=== PATIENT | male | born 1950 | race Caucasian/White ===

== ENCOUNTER → 2016-09-21 | Outpatient (REF) | payer MEDICARE, OTHER ==
[~2016-09-21] MED LIST: /HYDR10TAB PO; /PANT40TA OR; CEPH2CAP PO; COLA100C2 OR; EUCELOT2 PO; FERR324T5 OR; FOLI1TAB OR; INSUDET SC; LASI80TA OR; LEVAMIR SQ; MAGN250T OR; METO25TA2 OR; MOM30SS PO; MULTIVIT PO; NEUR100C OR; NOVOLOG100 MG/ML SC; NYAM10003 EXT; SENO8.6T9 PO; TOPROL XL PO; TYLE325T5 PO; WARF10TA OR; WARF10TA15 PO
== END ==
LOC: M LAB REF 14:16
PROVIDERS: ATTEND Podiatrist
DX: L97.422 Non-pressure chronic ulcer of left heel and midfoot with fat layer exposed (principal)

== ENCOUNTER 2016-10-12 09:09 | Inpatient (IN) | payer OTHER ==
[~2016-10-12] VITALS: Ht 182.9 cm; Wt 155.0 kg
[2016-10-12] MEDS ORDERED: LOSA25TA8 PO (09:50)
[2016-10-12] MEDS ORDERED: FURO40TA2 PO ×2 (09:50→12:02)
[2016-10-12] MEDS ORDERED: WARF-20 PO (09:50)
[2016-10-12] MEDS ORDERED: TOUJ1.2I SC (09:50)
[2016-10-12] MEDS ORDERED: ALLO100T PO (09:50)
[2016-10-12] MEDS ORDERED: ZOSY1SOL5 IV ×2 (09:50)
[2016-10-12] MEDS ORDERED: ONDANSETRON 4MG/2ML VIAL (J2405) IV PRN (12:00)
[2016-10-12] MEDS ORDERED: NEUR300C PO (12:02)
[2016-10-12] MEDS ORDERED: DOCU100C PO (12:02)
[2016-10-12] MEDS ORDERED: METO-209 PO (12:02)
[2016-10-12] MEDS ORDERED: VITMTA PO (12:02)
[2016-10-12] MEDS ORDERED: METO-207 PO (12:02)
[2016-10-12] MEDS ORDERED: INSUHUMDS SC (12:04)
[2016-10-12] MEDS ORDERED: NOVOINJ3 SC (12:06)
[2016-10-12] MEDS ORDERED: CRES20TA PO (12:06)
[2016-10-12] MEDS ORDERED: ZOSY2INJ2 IV (12:09)
[2016-10-12 13:25] LABS: ALBUMIN 2.9 GM/DL (3.2-5.2); ALBUMIN/GLOBULIN RATIO 0.81 (1.00-1.93); BILIRUBIN,TOTAL 0.3 MG/DL (0.2-1.0); CALCIUM LEVEL 8.2 MG/DL (8.8-10.2); CREATININE FOR GFR 1.41 MG/DL (0.70-1.30); GLOMERULAR FILTRATION RATE 53.5 (>49); MAGNESIUM LEVEL 2.2 MG/DL (1.8-2.4); POTASSIUM SERUM 3.9 MEQ/L (3.5-5.1); THYROXINE (T4) 11.2 UG/DL (4.5-12.0); TOTAL PROTEIN 6.5 GM/DL (6.4-8.2)
[2016-10-12 13:29] LABS: PLATELET COUNT, AUTOMATED 245 k/mm3 (150-450)
[2016-10-12 13:30] LABS: MEAN CORPUSCULAR HEMOGLOBIN 30.3 pg (27.0-33.0); MEAN CORPUSCULAR HGB CONC 31.5 g/dl (32.0-36.5)
[2016-10-12 13:31] LABS: BASO % 1.2 % (0.0-1.0); EOS # 0.1 K/mm3 (0.0-0.50); EOS % 3.9 % (0.0-3.0); LARGE UNSTAINED CELL # 0.1 K/mm3 (0.0-0.4); LARGE UNSTAINED CELL % 4.3 % (0.0-4.0); LYMPH % 34.5 % (24.0-44.0); MONO # 0.2 K/mm3 (0.0-0.8); MONO % 6.6 % (0.0-5.0); NEUTROPHILS # 1.4 K/mm3 (1.8-7.7); NEUTROPHILS % 49.5 % (36.0-66.0); RED CELL DISTRIBUTION WIDTH 14.9 % (11.5-14.5)
[2016-10-12 13:56] LABS: INR 2.61
--- NOTE | 2016-10-12 14:01 | REP ---
CHEST X-RAY: Two views. HISTORY: Preop. Comparison chest x-ray January 07, 2008. FINDINGS: There is a right-sided PICC line with its tip in the expected location of the superior vena cava. The patient is status post aortic valve replacement. Heart is not felt to be enlarged. The lungs are well inflated and clear. Pleural angles are sharp. There are minimal degenerative changes in the thoracic spine. IMPRESSION: Prior sternotomy aortic valve replacement. Right-sided PICC line. No acute disease. Signed by Abraham Hackett MD 10/12/2016 02:25 P
[2016-10-12 14:40] VITALS: BP 137/65
[2016-10-12] MEDS: NS 1,000 ML IV SCH (15:41)
[2016-10-12] MEDS: GABAPENTIN 300 MG CAP PO SCH ×2 (15:41→20:42)
[2016-10-12 16:15] VITALS: BP 137/76
[2016-10-12] MEDS: FUROSEMIDE 40 MG TAB PO SCH (17:41)
[2016-10-12] MEDS ORDERED: DEXTROSE 50% 50 ML SYRINGE IV PRN (18:00)
[2016-10-12] MEDS ORDERED: GLUCAGON FOR INJ 1 MG VIAL (J1610) SC PRN (18:00)
[2016-10-12] MEDS ORDERED: GLUCOSE 4 GM CHEW TABLET PO PRN (18:00)
[2016-10-12 20:00] VITALS: BP 119/65
--- NOTE | 2016-10-12 20:07 | ECGEPIP ---
Stationary ECG Study [facility] Test Date: 2016-10-12 Pat Name: ISIAH LUONG Department: Room: [place] [address] Gender: M Adult Educator: daryl : 1950 Requested By: AUTUMN Carpenter Order Number: [id number] Reading MD: Gwyn Ascencio Measurements Intervals [place] Rate: 51 P: WV: 0 QRS: -49 QRSD: 106 T: -16 QT: 484 QTc: 447 Interpretive Statements ATRIAL FLUTTER/TACHYCARDIA WITH SLOW VENTRICULAR RESPONSE LOW QRS VOLTAGE IN PRECORDIAL LEADS POSSIBLE ANTERIOR MYOCARDIAL INFARCTION, PROBABLY OLD INFERIOR MYOCARDIAL INFARCTION, OF INDETERMINATE AGE SINCE 11/04/15 A. FLUTTER, IWMI AND POSSIBLE AWMI ARE NEW Electronically Signed On 10-12-2016 20:07:01 EDT by Gwyn Ascencio
[2016-10-12] MEDS: HumaLOG INSULIN (NovoLOG) PER UNIT SC SCH (20:17)
[2016-10-12] MEDS: ROSUVASTATIN 10 MG TAB (CRESTOR) PO SCH (20:42)
[2016-10-12] MEDS: PIPERACILLIN/TAZOBACTAM SOD 3.375 GM in D5W MINI-BAG PLUS 50 ML IV SCH (20:42)
[2016-10-12] MEDS ORDERED: ZOSYN 2.25 GM VIAL (J2543) IV SCH (21:00)
[2016-10-13] VITALS (11 sets, daily range): BP systolic 121–157; BP diastolic 53–81
[2016-10-13] MEDS ORDERED: ACETAMINOPHEN TAB 650MG DOSE (2X325MG) PO ONE (01:00)
[2016-10-13] MEDS: PIPERACILLIN/TAZOBACTAM SOD 3.375 GM in D5W MINI-BAG PLUS 50 ML IV SCH ×4 (01:04→20:34)
[2016-10-13] MEDS: NS 1,000 ML IV SCH ×2 (01:05→20:43)
[2016-10-13 05:59] LABS: BASO % 0.9 % (0.0-1.0); EOS # 0.1 K/mm3 (0.0-0.50); EOS % 4.1 % (0.0-3.0); LARGE UNSTAINED CELL # 0.1 K/mm3 (0.0-0.4); LYMPH # 1.2 K/mm3 (1.5-4.5); LYMPH % 35.2 % (24.0-44.0); MEAN CORPUSCULAR HEMOGLOBIN 29.5 pg (27.0-33.0); MEAN CORPUSCULAR HGB CONC 31.3 g/dl (32.0-36.5); MONO # 0.2 K/mm3 (0.0-0.8); MONO % 6.8 % (0.0-5.0); NEUTROPHILS # 1.6 K/mm3 (1.8-7.7); PLATELET COUNT, AUTOMATED 225 k/mm3 (150-450); WHITE BLOOD COUNT 3.2 K/mm3 (4.0-10.0)
[2016-10-13 06:06] LABS: INR 2.59
[2016-10-13 06:21] LABS: CALCIUM LEVEL 8.1 MG/DL (8.8-10.2); CREATININE FOR GFR 1.52 MG/DL (0.70-1.30); GLOMERULAR FILTRATION RATE 49.1 (>49); MAGNESIUM LEVEL 2.1 MG/DL (1.8-2.4); POTASSIUM SERUM 3.4 MEQ/L (3.5-5.1)
[2016-10-13 06:52] LABS: ERYTHROCYTE SEDIMENTATION RATE 63 mm/hr (0-20)
[2016-10-13] MEDS ORDERED: ZOSYN 3.375 GM VIAL (J2543) ONE (08:21)
[2016-10-13] MEDS ORDERED: NEOSPORIN GU IRRIG 20 ML VIAL ONE (08:21)
[2016-10-13] MEDS ORDERED: BACITRACIN PWD 50,000 UNITS VIAL ONE (08:21)
[2016-10-13] MEDS ORDERED: LIDOCAINE 2% MDV 20 ML VIAL ONE (08:21)
[2016-10-13] MEDS ORDERED: BUPIVACAINE HCL 0.5% 30 ML VIAL ONE (08:21)
--- NOTE | 2016-10-13 08:58 | IPN ---
DATE: 10/13/2016 Mr. Erazo is feeling well this morning. He has no complaints of pain, chest pain, shortness of breath. He slept well last night and did tolerate diet. He is not complaining of chest pain or chest discomfort. Does not know when his last stress test was but it certainly was not recently. He did apparently have a recent operative course at [facility] without complication. Temperature 98.7, pulse 50, respiratory rate 18, blood pressure 157/79, 95% on room air. No significant arrhythmia on monitor. He is sleeping upon my arrival. He is easily aroused. No acute distress. Mucous membranes are moist. Neck is supple. Breathing is symmetrical, diminished. Heart is distant sounding. Normal S1, S2. Abdomen is soft, doughy, nontender. Left lower extremity is cleanly dressed. There is lower extremity edema noted. White cell count is 3.2, hemoglobin 11.1, and platelets 225. Potassium 3.4, BUN 22, creatinine 1.52. C-reactive protein is 0.74. Blood cultures are pending. Chest x-ray shows right sided peripherally inserted central catheter (PICC) line. No acute disease. Electrocardiogram (EKG) from yesterday shows atrial flutter, tachycardia, slow ventricular response. Low QRS voltage, possible anterior myocardial infarction, probably old inferior myocardial infarction of indeterminate age. When compared to EKG from [facility], EKG from 08/27/2016, there is less ectopy. The patient is in atrial flutter as opposed to atrial fibrillation. Rate is slower. Inferior changes are consistent. Anterior changes are most likely consistent to a little more difficult to compare, QRS is narrowed. ASSESSMENT: This is a 66-year-old with diabetic foot ulcer on the left and desire to maintain that limb with probable osteomyelitis on the antibiotics. PLAN: 1. Diabetic foot ulcer/osteomyelitis. The patient will be seen by Dr. Teixeira. Zosyn medicine ball has been changed to intermittent dosing while in the hospital. He had previously grown Staphylococcus in his blood and had a nonrevealing negative transesophageal echocardiogram while in [facility] within the last month. He had been planned to followup with Dr. Teixeira. Dr. Teixeira has been consulted in his care. I have discussed this case with Dr. Cobb who plans to take the patient to the operating theater for debridement of his foot. It is unclear to me whether or not he will be able to salvage the limb, but that is certainly the patient's goal. As far as his preoperative evaluation, the patient did suffer conscious sedation during his last hospitalization. For his procedure, which is planned for today, I would recommend conscious sedation and local block as needed. It does look as though he has a cardiac history with no angina or anginal equivalents. He has also had what is perhaps a recent stroke, most likely related to hypotension in the setting of severe sepsis. Regardless, he does represent an increased operative risk, probably also has obstructive sleep apnea, which is currently suspected but not diagnosed or treated. He also has an aortic valve, for which he is on Coumadin with a therapeutic INR, which will need to be reversed. It does increase his risk of stroke. I discussed this at length with the patient, who seems to understand. In his last hospitalization, he had been offered amputation three times by three different surgeons. He has declined and has been wanting to pursue treatment. I believe the risk of delaying further treatment of his foot further than we have already delayed certainly outweighs the nontrivial risk of stroke or cardiovascular complication possible based on his past medical history. 2. Cardiovascular. The patient has what would appear to be coronary artery disease. He certainly has vascular compromise. No recent stress test. No angina or anginal equivalent. He seems to be in atrial flutter with a slow ventricular response. He has an aortic prosthetic mechanical valve on Coumadin. I did obtain informed consent from the patient yesterday to give fresh frozen plasma, which we will give today, and plan to place the patient on a heparin drip postoperatively. He bears a diagnosis of congestive heart failure. 2-D echocardiogram showed grossly normal left ventricular size and function. I would suspect that he has diastolic dysfunction. 3. Infectious disease. The patient has a history of Staphylococcus in his blood and is on Zosyn. Dr. Teixeira has been consulted. There is evidence on CT scan of the lower extremity done 09/27/2016 of cellulitis and osteomyelitis of the left lower extremity. This would appear to be verified by nuclear medicine scan done 09/29/2016. 4. The patient appears to have a transient ischemic attack on presentation, most likely related to hypotension. He does have findings on CT scan representing old changes. 5. The patient would appear to have chronic kidney disease stage III. 6. The patient has suspected obstructive sleep apnea. 7. The patient has recent severe sepsis and intensive care unit (ICU) stay at [facility]. 8. Deep vein thrombosis (DVT) prophylaxis. Full dose Coumadin. Planned for heparin drip postoperatively. 9. The patient has diabetes. We will use insulin during his stay. The patient is currently nothing by mouth.
[2016-10-13] MEDS: FUROSEMIDE 80 MG TAB PO SCH (09:00)
[2016-10-13] MEDS: HumaLOG INSULIN (NovoLOG) PER UNIT SC SCH ×4 (09:10→21:00)
[2016-10-13] MEDS: GABAPENTIN 300 MG CAP PO SCH ×3 (09:21→20:39)
--- NOTE | 2016-10-13 11:38 | HPE ---
DATE OF ADMISSION: 10/12/2016 This is a direct admission sent in to the emergency department from Dr. Cobb's office. CHIEF COMPLAINT: Left foot wound. SUMMARY OF PRESENTATION: (report ended abruptly)
[2016-10-13] MEDS ORDERED: MIDAZOLAM INJ 2 MG/2 ML VIAL (J2250) ONE (12:43)
[2016-10-13] MEDS ORDERED: fentaNYL 100 MCG/2 ML INJECTION (J3010) ONE (12:43)
[2016-10-13] MEDS ORDERED: BACTRIM IV 160MG-800MG/10ML VIAL (S0039) XX ONE (14:30)
--- NOTE | 2016-10-13 15:10 | HPE ---
DATE OF ADMISSION: 10/12/2016 HISTORY OF PRESENT ILLNESS: This is a patient who was recently admitted and discharged to [facility] with concerns for left lower extremity osteomyelitis. He had a relatively prolonged hospital course there, and sent home with a Zosyn ball and a peripherally inserted central catheter (PICC) line for continued, electing to obtain a fourth recommendation from Dr. Cobb. He had received three recommendations during his hospital stay to have a left lower extremity amputation which, of course, with the presence of only one current complete leg, he would like to avoid. He presented to the hospital after being sent in by Dr. Cobb with a plan for debridement of his left foot. He is not complaining of any pain, chest pain, shortness of breath. Does not have any significant exercise tolerance. Has not experienced any chest pain, shortness of breath or orthopnea. Does not know when his last stress test was. PAST MEDICAL HISTORY: Notable for hypertension, anemia, gastroesophageal reflux disease (GERD), coronary artery disease, diabetes, valvular heart disease. PAST SURGICAL HISTORY: Notable for open heart surgery with an aortic valve replacement. He has had a right-sided below-knee amputation (BKA) and previous debridement of his left foot. SOCIAL HISTORY: He does not smoke or drink alcohol. He is not currently working. FAMILY HISTORY: Notable for mother with diabetes, father with congestive heart failure. ALLERGIES: He has no listed allergies. MEDICATIONS AT HOME: - Colace 100 mg twice daily - insulin - Losartan 25 mg daily - metoprolol succinate 50 mg every evening and 100 mg in the morning - Coumadin - Toujeo 300 units/mL 100 units subcutaneous at bedtime - allopurinol 100 mg daily - Lasix 40 mg in the evening, 80 mg in the morning - Neurontin 300 mg three times a day - multivitamin tablet daily - Crestor 20 mg by mouth at bedtime - Zosyn continuous infusion REVIEW OF SYSTEMS: Notable for no headache, no visual changes, no runny nose, no sore throat. He has decreased sensation in his left foot. No chest pain, no orthopnea, no paroxysmal nocturnal dyspnea. He has a right-sided PICC line in his upper extremity. No abdominal pain, no changes in bowel or bladder habits. Otherwise unremarkable. PHYSICAL EXAMINATION: VITAL SIGNS: Temperature 97.9, pulse 53, respirations 18, blood pressure 128/68, 95% on room air. GENERAL: He is awake, appropriately interactive, pleasant and conversant. HEENT: Head is normocephalic. Pupils equal, round, and reactive. Anicteric. Not injected. Nasal septum midline. LUNGS: Breathing is symmetrical, diminished. I to E ratio is 1:3. HEART: Distant sounding, normal S1, S2. Is not tachycardic, not bradycardic on my exam either. ABDOMEN: Distended, tympanic, soft, protuberant. There is a right-sided prosthetic in place during my exam. EXTREMITIES: Left lower extremity is notable for woody edema, venous stasis changes and dressing in place over the (sound skip). LABORATORY DATA: White count is 3, hemoglobin 11.5, and platelets of 245. BUN 23, creatinine 1.4. C-reactive protein is 0.9. ASSESSMENT: This is a 66-year-old with diabetic foot ulcer on the left with likely osteomyelitis at the same spot. PLAN: 1. Diabetic foot ulcer, osteomyelitis. Patient will be admitted to the hospitalist service and will require at least a two-midnight hospital stay and surgical correction of this area. He will be seen in consultation by Dr. Teixeira and Dr. Cobb. I have discussed this case with both parties. Plan would be to consider moving forward with surgical procedure. We will get old records from [facility]. 2. Cardiovascular: The patient appears to have evidence of previous cardiovascular injury on electrocardiogram (EKG). We will look for old EKG records from [facility]. He has had no recent stress test. He does have an aortic valve, is on Coumadin, and will require bridging with heparin postoperatively. Likely require fresh frozen plasma (FFP) depending at the time of (sound skip). 3. Apparent recent blood stream infection. Is on ongoing antibiotic therapy. We will again obtain old records. Will likely need a 2-D echocardiogram if one has not already been done. 4. The patient has diabetes. Will be on insulin during his stay. 5. The patient has chronic kidney disease stage III. 6. The patient has suspected obstructive sleep apnea. 7. The patient has morbid obesity with a body mass index (BMI) of 45.9, which complicates care.
[2016-10-13] MEDS ORDERED: HEPARIN SOD (PORCINE) 5000 UNITS/ML VIAL IV PRN (16:45)
[2016-10-13] MEDS: FUROSEMIDE 40 MG TAB PO SCH (17:40)
[2016-10-13] MEDS: ALLOPURINOL 100 MG TAB PO SCH (17:41)
[2016-10-13] MEDS: MULTIVITAMINS/MINERALS THERAP 1 TAB PO SCH (17:41)
[2016-10-13] MEDS ORDERED: PERCOCET 5MG/325MG TAB PO PRN (18:15)
--- NOTE | 2016-10-13 19:16 | REP ---
Left os calcis: Two views obtained portably: History: Postop debridement. Comparison radiographs are from 10/31/2012. Findings: Axial and lateral views were attempted through overlying dressing and plaster material. This obscures bone detail considerably. A portion of the posterior calcaneus appears to have been removed. There is advanced arthritis at the ankle as before. Signed by Abraham Hackett MD 10/13/2016 08:52 P
[2016-10-13] MEDS: ROSUVASTATIN 10 MG TAB (CRESTOR) PO SCH (20:40)
[2016-10-13] MEDS: HEPARIN DRIP 25,000 UNITS in APPROPRIATE DILUENT 1 EA IV SCH ×2 (22:12→22:52)
[2016-10-14] MEDS: PIPERACILLIN/TAZOBACTAM SOD 3.375 GM in D5W MINI-BAG PLUS 50 ML IV SCH ×4 (02:00→20:48)
[2016-10-14 03:55] VITALS: BP 109/65
[2016-10-14 04:14] LABS: BASO % 0.7 % (0.0-1.0); EOS # 0.1 K/mm3 (0.0-0.50); EOS % 3.2 % (0.0-3.0); LARGE UNSTAINED CELL # 0.1 K/mm3 (0.0-0.4); LARGE UNSTAINED CELL % 2.6 % (0.0-4.0); LYMPH # 1.1 K/mm3 (1.5-4.5); LYMPH % 28.6 % (24.0-44.0); MEAN CORPUSCULAR HEMOGLOBIN 29.8 pg (27.0-33.0); MEAN CORPUSCULAR HGB CONC 31.6 g/dl (32.0-36.5); MEAN CORPUSCULAR VOLUME 94.6 fl (80.0-96.0); MONO # 0.3 K/mm3 (0.0-0.8); MONO % 7.9 % (0.0-5.0); NEUTROPHILS # 2.1 K/mm3 (1.8-7.7); PLATELET COUNT, AUTOMATED 216 k/mm3 (150-450); RED CELL DISTRIBUTION WIDTH 14.9 % (11.5-14.5); WHITE BLOOD COUNT 3.7 K/mm3 (4.0-10.0)
[2016-10-14 04:22] LABS: INR 1.95
[2016-10-14 04:37] LABS: CALCIUM LEVEL 7.6 MG/DL (8.8-10.2); CREATININE FOR GFR 1.37 MG/DL (0.70-1.30); GLOMERULAR FILTRATION RATE 55.3 (>49); POTASSIUM SERUM 3.6 MEQ/L (3.5-5.1)
[2016-10-14 07:58] VITALS: BP 118/60
[2016-10-14] MEDS: ALLOPURINOL 100 MG TAB PO SCH (09:05)
[2016-10-14] MEDS: HumaLOG INSULIN (NovoLOG) PER UNIT SC SCH ×4 (09:05→20:48)
[2016-10-14] MEDS: GABAPENTIN 300 MG CAP PO SCH ×3 (09:05→20:48)
[2016-10-14] MEDS: FUROSEMIDE 80 MG TAB PO SCH (09:05)
[2016-10-14] MEDS: MULTIVITAMINS/MINERALS THERAP 1 TAB PO SCH (09:06)
[2016-10-14] MEDS ORDERED: SODIUM CHLORIDE 0.9% INJ 10 ML SYR IV PRN (14:45)
--- NOTE | 2016-10-14 15:20 | IPNPDOC ---
Subjective Date Seen The patient was seen on 10/14/16. Subjective Chief Complaint/HPI The patient is a 66-year-old male admitted with a reason for visit of Osteomyelitis Of Foot, Left, Acute. Events since last encounter Feeling well, no chest pain, not short of breath, tolerating diet, no bm, no foot pain Constitutional: Denies: Chills, Fever Pulmonary: Denies: Dyspnea, Cough Cardiovascular: Denies: Chest Pain, Palpitations Gastrointestinal: Denies: Nausea, Vomiting, Abdominal Pain Objective Physical Examination General Exam: Positive: Alert, Cooperative, No Acute Distress Eye Exam: Negative: Sclera icteric Neck Exam: Positive: Supple Chest Exam: Positive: Clear to auscultation, Negative: Rales, Rhonchi, Wheezing Heart Exam: Positive: Rate Normal, Regular Rhythm, Normal S1, Normal S2, Negative: Bradycardic Abdomen Exam: Positive: Normal bowel sounds, Soft, Negative: Tenderness Extremity Exam: Positive: Edema, Other (left lower extremity cleanly dressed) Assessment /Plan Problems (1) Osteomyelitis of foot, left, acute Status: Acute Problem Specific Plan: Consult Specialist Problem Text: POD#1 for debridement Seen by podiatry and infectious disease Continue antibiotics await deep tissue culture (2) Atrial flutter Status: Chronic Problem Text: restarted on beta blockade no role for telemetry at this point (3) Diabetes Status: Chronic Problem Text: on insulin sliding scale back on consistent carb diet (4) Aortic valve prosthesis present Status: Chronic Problem Text: has mechanical prosthetic valve, on a heparin drip, restarting coumadin (5) CKD (chronic kidney disease), stage III (6) BEENA (obstructive sleep apnea) Status: Chronic Problem Text: suspected, continue continuos pulse ox in setting of post operative care Plan/VTE VTE Prophylaxis Ordered?: Yes VS, I&O, 24H, Fishbone Vital Signs/I&O Vital Signs Date Time Temp Pulse Resp B/P (MAP) Pulse Ox O2 Delivery O2 Flow Rate FiO2 10/14/16 09:00 Nasal Cannula 2.0 10/14/16 07:58 97.6 81 20 118/60 (79) 95 I&O- Last 24 Hours up to 6 AM 10/14/16 06:00 Intake Total 2645 ml Output Total 3725 ml Balance -1080 ml Laboratory Data 24H LABS Laboratory Tests 2 10/13/16 16:31: Bedside Glucose (Misc Panel) 94 10/13/16 18:15: Activated Partial Thromboplast Time 33.4 10/13/16 20:37: Bedside Glucose (Misc Panel) 210H 10/14/16 04:01: Activated Partial Thromboplast Time 44.6H, White Blood Count 3.7L, Red Blood Count 3.29L, Hemoglobin 9.8L, Hematocrit 31.2L, Mean Corpuscular Volume 94.6, Mean Corpuscular Hemoglobin 29.8, Mean Corpuscular Hemoglobin Concent 31.6L, Red Cell Distribution Width 14.9H, Platelet Count 216, Neutrophils (%) (Auto) 57.0, Lymphocytes (%) (Auto) 28.6, Monocytes (%) (Auto) 7.9H, Eosinophils (%) ( Auto) 3.2H, Basophils (%) (Auto) 0.7, Neutrophils # (Auto) 2.1, Lymphocytes # ( Auto) 1.1L, Monocytes # (Auto) 0.3, Eosinophils # (Auto) 0.1, Basophils # (Auto ) 0.0, Large Unclassified Cells % 2.6, Large Unclassified Cells # 0.1, Prothrombin Time 22.3H, Prothromb Time International Ratio 1.95, Anion Gap 6L, Glomerular Filtration Rate 55.3, Blood Urea Nitrogen 19H, Creatinine 1.37H, Sodium Level 145, Potassium Level 3.6, Chloride Level 110H, Carbon Dioxide Level 29, Calcium Level 7.6L, Magnesium Level 2.0 10/14/16 11:36: Activated Partial Thromboplast Time 55.7H 10/14/16 11:41: Bedside Glucose (Misc Panel) 270H CBC/BMP Laboratory Tests 10/14/16 04:01 Red Blood Count 3.29 L, Mean Corpuscular Volume 94.6, Mean Corpuscular Hemoglobin 29.8, Mean Corpuscular Hemoglobin Concent 31.6 L, Red Cell Distribution Width 14.9 H, Neutrophils (%) (Auto) 57.0, Lymphocytes (%) (Auto) 28.6, Monocytes (%) (Auto) 7.9 H, Eosinophils (%) (Auto) 3.2 H, Basophils (%) ( Auto) 0.7, Neutrophils # (Auto) 2.1, Lymphocytes # (Auto) 1.1 L, Monocytes # ( Auto) 0.3, Eosinophils # (Auto) 0.1, Basophils # (Auto) 0.0, Calcium Level 7.6 L Microbiology Microbiology 10/12/16 Blood Culture - Preliminary, Resulted No Growth after 48 hours. All Specime... 10/12/16 Blood Culture - Preliminary, Resulted No Growth after 48 hours. All Specime... 10/13/16 Wound Culture, Received Pending 10/13/16 Anaerobic Culture, Received Pending AUTUMN RIVERA MD October 14, 2016 15:20
[2016-10-14] MEDS: WARFARIN SOD 4 MG TAB PO SCH (16:28)
[2016-10-14] MEDS: FUROSEMIDE 40 MG TAB PO SCH (16:28)
[2016-10-14] MEDS: HEPARIN DRIP 25,000 UNITS in APPROPRIATE DILUENT 1 EA IV SCH (16:31)
[2016-10-14] MEDS: METOPROLOL TART 25 MG TABLET PO SCH (17:56)
[2016-10-14] MEDS: SODIUM CHLORIDE 0.9% INJ 10 ML SYR IV SCH (17:57)
[2016-10-14] MEDS: ROSUVASTATIN 10 MG TAB (CRESTOR) PO SCH (20:48)
[2016-10-14 22:00] VITALS: BP 115/60
[2016-10-15] VITALS: BP 128/68
[2016-10-15] MEDS: METOPROLOL TART 25 MG TABLET PO SCH ×4 (00:10→17:47)
[2016-10-15] MEDS: PIPERACILLIN/TAZOBACTAM SOD 3.375 GM in D5W MINI-BAG PLUS 50 ML IV SCH ×4 (02:33→20:35)
[2016-10-15 05:54] LABS: BASO % 0.9 % (0.0-1.0); EOS # 0.1 K/mm3 (0.0-0.50); EOS % 3.4 % (0.0-3.0); LARGE UNSTAINED CELL # 0.1 K/mm3 (0.0-0.4); LARGE UNSTAINED CELL % 3.2 % (0.0-4.0); LYMPH # 1.3 K/mm3 (1.5-4.5); LYMPH % 32.6 % (24.0-44.0); MEAN CORPUSCULAR HEMOGLOBIN 29.5 pg (27.0-33.0); MEAN CORPUSCULAR HGB CONC 31.8 g/dl (32.0-36.5); MEAN CORPUSCULAR VOLUME 92.9 fl (80.0-96.0); MONO # 0.3 K/mm3 (0.0-0.8); MONO % 8.4 % (0.0-5.0); NEUTROPHILS # 1.8 K/mm3 (1.8-7.7); NEUTROPHILS % 51.5 % (36.0-66.0); PLATELET COUNT, AUTOMATED 186 k/mm3 (150-450); RED CELL DISTRIBUTION WIDTH 15.1 % (11.5-14.5); WHITE BLOOD COUNT 3.5 K/mm3 (4.0-10.0)
[2016-10-15 06:00] VITALS: BP 111/61
[2016-10-15 06:00] LABS: INR 1.67
[2016-10-15 06:12] LABS: CALCIUM LEVEL 7.8 MG/DL (8.8-10.2); CREATININE FOR GFR 1.56 MG/DL (0.70-1.30); GLOMERULAR FILTRATION RATE 47.6 (>49); POTASSIUM SERUM 3.6 MEQ/L (3.5-5.1)
[2016-10-15] MEDS: SODIUM CHLORIDE 0.9% INJ 10 ML SYR IV SCH ×2 (06:21→17:47)
[2016-10-15] MEDS: MULTIVITAMINS/MINERALS THERAP 1 TAB PO SCH (08:23)
[2016-10-15] MEDS: ALLOPURINOL 100 MG TAB PO SCH (08:23)
[2016-10-15] MEDS: FUROSEMIDE 80 MG TAB PO SCH (08:23)
[2016-10-15] MEDS: GABAPENTIN 300 MG CAP PO SCH ×3 (08:23→20:35)
[2016-10-15] MEDS: HumaLOG INSULIN (NovoLOG) PER UNIT SC SCH ×4 (08:24→20:37)
[2016-10-15] MEDS: PERCOCET 5MG/325MG TAB PO PRN ×3 (08:24→17:47)
[2016-10-15 09:11] LABS: INR 1.82
--- NOTE | 2016-10-15 09:15 | IPNPDOC ---
Subjective Date Seen The patient was seen on 10/15/16. Subjective Chief Complaint/HPI The patient is a 66-year-old male admitted with a reason for visit of Osteomyelitis Of Foot, Left, Acute. Events since last encounter Feeling ok, no pain, tolerating diet, has yet to have a bowel movement- which is not abnormal for him, no dizzyness, planning to get out of bed and spend a good deal of time in chair today Constitutional: Denies: Chills Pulmonary: Denies: Dyspnea, Cough Cardiovascular: Denies: Chest Pain, Palpitations Gastrointestinal: Denies: Nausea, Vomiting, Abdominal Pain Objective Physical Examination General Exam: Positive: Alert, Cooperative, No Acute Distress Eye Exam: Negative: Sclera icteric ENT Exam: Positive: Mucous membr. moist/pink Neck Exam: Positive: Supple Chest Exam: Positive: Clear to auscultation, Negative: Rales, Rhonchi, Wheezing Heart Exam: Positive: Rate Normal, Regular Rhythm, Normal S1, Normal S2, Negative: Tachycardic, Bradycardic Abdomen Exam: Positive: Normal bowel sounds, Soft, Negative: Tenderness Extremity Exam: Positive: Edema, Other (left lower extremity dressed- with some minimal dried blood) Assessment /Plan Problems (1) Osteomyelitis of foot, left, acute Status: Acute Problem Specific Plan: Consult Specialist Problem Text: POD#2 for debridement Seen by podiatry and infectious disease Continue antibiotics no growth on tissue culture as of 10/15/16 Had bleeding from surgical site last night- I discussed with Dr. Cazares at that time- continuing hep drip due to aortic mechanical valve (2) Atrial flutter Status: Chronic Problem Text: restarted on beta blockade - rate contolled no role for telemetry at this point (3) Diabetes Status: Chronic Problem Text: on insulin sliding scale back on consistent carb diet (4) Aortic valve prosthesis present Status: Chronic Problem Text: has mechanical prosthetic valve, on a heparin drip, on coumadin, INR subtherapeutic (5) CKD (chronic kidney disease), stage III Status: Chronic (6) BEENA (obstructive sleep apnea) Status: Chronic Problem Text: suspected, continue continuos pulse ox in setting of post operative care Plan/VTE VTE Prophylaxis Ordered?: Yes VS, I&O, 24H, Fishbone Vital Signs/I&O Vital Signs Date Time Temp Pulse Resp B/P (MAP) Pulse Ox O2 Delivery O2 Flow Rate FiO2 10/15/16 08:54 18 10/15/16 06:20 85 111/65 10/15/16 06:00 97.8 95 Room Air 10/14/16 09:00 2.0 I&O- Last 24 Hours up to 6 AM 10/15/16 06:00 Intake Total 1874 ml Output Total 4000 ml Balance -2126 ml Laboratory Data 24H LABS Laboratory Tests 2 10/14/16 11:36: Activated Partial Thromboplast Time 55.7H 10/14/16 11:41: Bedside Glucose (Misc Panel) 270H 10/14/16 17:08: Bedside Glucose (Misc Panel) 290H 10/14/16 18:45: Activated Partial Thromboplast Time 75.1H 10/14/16 20:14: Bedside Glucose (Misc Panel) 297H 10/15/16 01:40: Activated Partial Thromboplast Time 87.9H 10/15/16 05:35: White Blood Count 3.5L, Red Blood Count 3.03L, Hemoglobin 9.0L, Hematocrit 28.2L , Mean Corpuscular Volume 92.9, Mean Corpuscular Hemoglobin 29.5, Mean Corpuscular Hemoglobin Concent 31.8L, Red Cell Distribution Width 15.1H, Platelet Count 186, Neutrophils (%) (Auto) 51.5, Lymphocytes (%) (Auto) 32.6, Monocytes (%) (Auto) 8.4H, Eosinophils (%) (Auto) 3.4H, Basophils (%) (Auto) 0.9 , Neutrophils # (Auto) 1.8, Lymphocytes # (Auto) 1.3L, Monocytes # (Auto) 0.3, Eosinophils # (Auto) 0.1, Basophils # (Auto) 0.0, Large Unclassified Cells % 3.2 , Large Unclassified Cells # 0.1, Prothrombin Time 19.8H, Prothromb Time International Ratio 1.67, Anion Gap 7L, Glomerular Filtration Rate 47.6L, Blood Urea Nitrogen 17, Creatinine 1.56H, Sodium Level 144, Potassium Level 3.6, Chloride Level 109H, Carbon Dioxide Level 28, Calcium Level 7.8L, Magnesium Level 2.0 10/15/16 08:15: CBC/BMP Laboratory Tests 10/15/16 05:35 Red Blood Count 3.03 L, Mean Corpuscular Volume 92.9, Mean Corpuscular Hemoglobin 29.5, Mean Corpuscular Hemoglobin Concent 31.8 L, Red Cell Distribution Width 15.1 H, Neutrophils (%) (Auto) 51.5, Lymphocytes (%) (Auto) 32.6, Monocytes (%) (Auto) 8.4 H, Eosinophils (%) (Auto) 3.4 H, Basophils (%) ( Auto) 0.9, Neutrophils # (Auto) 1.8, Lymphocytes # (Auto) 1.3 L, Monocytes # ( Auto) 0.3, Eosinophils # (Auto) 0.1, Basophils # (Auto) 0.0, Calcium Level 7.8 L Microbiology Microbiology 10/12/16 Blood Culture - Preliminary, Resulted No Growth after 48 hours. All Specime... 10/12/16 Blood Culture - Preliminary, Resulted No Growth after 48 hours. All Specime... 10/13/16 Wound Culture, Resulted Pending 10/13/16 Anaerobic Culture - Final, Resulted AUTUMN RIVERA MD October 15, 2016 09:15
--- NOTE | 2016-10-15 09:39 | RO ---
DATE OF SURGERY: 10/13/2016 PREOPERATIVE DIAGNOSIS: Osteomyelitis, intracalcaneus. POSTOPERATIVE DIAGNOSIS: Osteomyelitis, intracalcaneus. PROCEDURE PERFORMED: Category 2 partial calcanectomy left heel. SURGEON: Eron Cobb DPM SLP: None. ESTIMATED BLOOD LOSS: 250 mL. DRAINS UTILIZED: 2-inch Iodoform gauze. ANESTHESIA: local MAC IRRIGATION: 3 liters dilute Bactrim DS with a low-pressure pulse lavage system. HEMOSTASIS: None. DESCRIPTION OF OPERATION: On 10/13/2016, the patient was taken from his hospital room and placed on the operating table in the prone position. Following the induction of intravenous (IV) sedation and local anesthesia, attention was directed to the patient's left foot. There was an ulceration present on the plantar aspect of the foot. An incision was then made across the posterior heel starting at superior to the insertion point of the Achilles tendon exiting at the plantar ulcer site. The Achilles tendon was then split, and care was taken to dissect just at the level of the calcaneus, exposing the medial and lateral and posterior aspects of the calcaneus. Starting to cut with a power saw, a cut was made through the tuber of the calcaneus proximal to its insertion point, exiting just distal to the insertion point of the plantar fascia, making this a category 2 calcanectomy. Fluoroscopy was utilized to confirm resection. All bleeders as encountered were electrocoagulated. The wound was then flushed with 3 liters of dilute Bactrim solution. After appropriate hemostasis was obtained, 2-inch Iodoform gauze was placed into the wound, followed by a bulky compression dressing, followed by a Sanders compression dressing with a posterior splint. The patient, having apparently tolerated the surgical procedure well, was taken from the operating room (OR) to the recovery room, vital signs stable, the patient afebrile, for further monitoring by the anesthesia department. The posterior calcaneus was sent to bacteriology for aerobic and anaerobic bone cultures. His questions were answered. AUBREY
--- NOTE | 2016-10-15 10:44 | IPN ---
DATE: 10/14/2014, 2:25 P.M. CHIEF COMPLAINT: Patient seen for evaluation status post category 2 calcanectomy of the left heel. Patient denies shortness of breath or chest pain. States he is having no discomfort presently. Patient is on nasal cannula at 2 liters and his pulse ox is 95, blood pressure is 118/60, respiration 20, temperature 97.6. Patient has a posterior splint in place with bandage. The bandage was removed today. There is no purulence. There is no active bleeding and the packing was removed. This did elicit some localized bleeding from removing the packing, however this stopped after compression of 4-5 seconds with good granulation tissue bed in the wound. No calf tenderness to compression. A sterile dressing was applied consisting of Drawtex in the wound bed followed by 4x4, Kerlix and reapplication of a posterior splint with henrietta wraps. Orders changed to daily dressing changes with Woundtech packed in the wound bed followed by a dry sterile dressing. Continue with posterior splint. Patient may bear some weight to pivot and transfer as needed to be out of bed. His questions were answered. X-rays were reviewed revealing good resection of the calcaneus and the bone culture is pending.
[2016-10-15] MEDS: LEVEMIR (INSULIN DETEMIR) 1 UNITS/0.01ML SC SCH (13:06)
[2016-10-15 14:00] VITALS: BP 123/66
[2016-10-15] MEDS: FUROSEMIDE 40 MG TAB PO SCH (17:46)
[2016-10-15] MEDS: WARFARIN SOD 4 MG TAB PO SCH (17:46)
[2016-10-15] MEDS: ROSUVASTATIN 10 MG TAB (CRESTOR) PO SCH (20:36)
[2016-10-15 22:00] VITALS: BP 112/64
[2016-10-16] MEDS: PIPERACILLIN/TAZOBACTAM SOD 3.375 GM in D5W MINI-BAG PLUS 50 ML IV SCH ×4 (00:52→21:18)
[2016-10-16] MEDS: METOPROLOL TART 25 MG TABLET PO SCH ×4 (00:57→17:27)
[2016-10-16] MEDS: HEPARIN DRIP 25,000 UNITS in APPROPRIATE DILUENT 1 EA IV SCH ×2 (03:21→14:03)
--- NOTE | 2016-10-16 04:53 | CR ---
DATE OF CONSULTATION: 10/13/2016 HISTORY OF PRESENT ILLNESS: Mr. Erazo was seen in the recovery room after surgery. He had a calcanectomy done by Dr. Cobb for acute osteomyelitis. He had recently been admitted with sepsis to [facility] on 09/27 and discharged on 10/05. He had been discharged home on intravenous (IV) Zosyn and vancomycin. According to the patient, the vancomycin had been on hold due to the fact that he had a high vancomycin level. The patient had a peripherally inserted central catheter (PICC) line placed on 09/27 and refused to have surgery done at [facility] and thus he came to the care of Dr. Cobb. During that hospitalization, he was seen by three different consultants stating that he should have a below-knee amputation. The patient already had a right-sided below-knee amputation and therefore refused. He presented to the hospital after he had been seen by Dr. Cobb in the office who recommended he gets admitted for a calcanectomy. He was not complaining of any chest pain or shortness of breath. No fever or chills. No orthopnea. PAST MEDICAL HISTORY: Significant for: 1. Atrial fibrillation. 2. Diabetes. 3. Hyperlipidemia. 4. Hypertension. 5. Congestive heart failure with prosthetic valve done in 2005 and revised in 2011. 6. Cardiac catheterization in 2011. 7. Transesophageal echocardiogram was done at [facility] during admission September 2016 which was negative for vegetations. PAST SURGICAL HISTORY: 1. Aortic valve replacement 2005 and 2011. 2. Right below-knee amputation (BKA) 2011. 3. Colonoscopy, endoscopy done in 2011. SOCIAL HISTORY: He lives with his . He does not drink or smoke. He is not currently working. He is disabled. FAMILY HISTORY: Significant for mother with diabetes, father with congestive heart failure. ALLERGIES: No known drug allergies. MEDICATIONS: - insulin Levemir 10 units subcutaneously daily - metoprolol 25 mg by mouth every 6 hours - warfarin a mg by mouth daily - Percocet 1-2 tablets every 4 hours as needed - heparin IV after surgery - allopurinol 100 mg by mouth daily - furosemide 80 mg by mouth daily - multivitamin one tablet by mouth daily - lovastatin 20 mg by mouth nightly - Zosyn 3.375 grams IV every 6 hours - insulin sliding scale - gabapentin 300 mg by mouth three times a day - Zofran 4 mg IV every 6 hours as needed - furosemide 40 mg by mouth daily at 5 p.m. LABORATORY DATA: White count on admission was 3, today 3.2, hemoglobin 11.1, hematocrit 35.5, platelets 225, 50% neutrophils, 35% lymphocytes, 7% monocytes. ESR 63. Sodium 144, potassium 3.4, chloride 112, bicarbonate 27, BUN 22, creatinine 1.5, glucose 190, calcium 8.1, magnesium 2.1, CPK 53, CRP was 0.74, albumin 2.9, total protein 6.5, free T4 is 3.4, TSH 1.45. Blood cultures from 10/12 no growth after 24 hours. Wound culture from the operative site is still pending. No gram stain was sent. IMAGING STUDIES: Chest x-ray from 10/12/2016, shows a right-sided PICC line with its tip in the expected location of the superior vena cava, prior sternotomy and aortic valve replacement. No acute disease. He had an x-ray that was done after surgery. Part of the calcaneus has been removed. 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 PHYSICAL EXAMINATION: He is a healthy looking gentleman in no acute distress. Postoperatively doing well. He is alert and oriented times three. Temperature is 98.3, pulse 70, respirations 18, blood pressure 121/53, oxygen saturation 94% on room air. Heart: Normal S1, S2 with distant sounds, systolic ejection murmur 2/6. Lungs are clear. No wheezes, rales or rhonchi. Abdomen: Soft, nontender, obese. Extremities: Right BKA with a stump well healed scar and no open lesions. Left leg had been just operated and was not examined. Neurologic: Exam normal. IMPRESSION: This is a 66-year-old gentleman with a diabetic foot ulcer. I have called microbiology department in [place]. Reports were obtained and on microbiology his urine culture was no growth on 09/27, blood culture from 09/27 had bacteroides. On 09/28, one blood culture had Staphylococcus epidermidis and 09/30 blood culture was negative. There were no wound cultures done at [facility]. Dr. Cobb did a category 2 calcanectomy of the left heel. The patient is doing well. PLAN: From review of the blood culture data from [facility], there was one that had a Staphylococcus coagulase negative on day #2 of admission, which was probably a contaminant. Day #1, he had bacteroides in blood culture which is most likely coming from the calcaneus. The patient will need to be treated with anaerobic coverage. The final antibiotic decision will depend on the intraoperative results of calcaneus culture. In the meantime, I would not resume using vancomycin even though the patient had been discharged on it, but was not given for a couple days due to vancomycin toxicity. PICC line in the right arm, will keep that in place to continue with home IV antibiotic, which will be for at least 6 weeks. Antibiotic management will depend on results of intraoperative culture. Thank you for the consultation.
[2016-10-16] MEDS: SODIUM CHLORIDE 0.9% INJ 10 ML SYR IV SCH ×2 (05:34→17:27)
[2016-10-16 06:00] VITALS: BP 122/55
[2016-10-16 06:40] LABS: BASO % 0.8 % (0.0-1.0); EOS # 0.2 K/mm3 (0.0-0.50); EOS % 4.1 % (0.0-3.0); LARGE UNSTAINED CELL # 0.1 K/mm3 (0.0-0.4); LARGE UNSTAINED CELL % 2.1 % (0.0-4.0); LYMPH # 1.3 K/mm3 (1.5-4.5); LYMPH % 31.6 % (24.0-44.0); MEAN CORPUSCULAR HEMOGLOBIN 30.2 pg (27.0-33.0); MEAN CORPUSCULAR HGB CONC 32.5 g/dl (32.0-36.5); MEAN CORPUSCULAR VOLUME 93.1 fl (80.0-96.0); MONO # 0.3 K/mm3 (0.0-0.8); MONO % 7.8 % (0.0-5.0); NEUTROPHILS % 53.5 % (36.0-66.0); PLATELET COUNT, AUTOMATED 204 k/mm3 (150-450); RED CELL DISTRIBUTION WIDTH 15.3 % (11.5-14.5); WHITE BLOOD COUNT 3.8 K/mm3 (4.0-10.0)
[2016-10-16 06:48] LABS: INR 1.78
[2016-10-16 06:58] LABS: CALCIUM LEVEL 8.1 MG/DL (8.8-10.2); CREATININE FOR GFR 1.76 MG/DL (0.70-1.30); GLOMERULAR FILTRATION RATE 41.4 (>49); MAGNESIUM LEVEL 1.9 MG/DL (1.8-2.4); POTASSIUM SERUM 3.6 MEQ/L (3.5-5.1)
[2016-10-16] MEDS: HumaLOG INSULIN (NovoLOG) PER UNIT SC SCH ×4 (08:40→21:11)
[2016-10-16] MEDS: FUROSEMIDE 80 MG TAB PO SCH (08:41)
[2016-10-16] MEDS: MULTIVITAMINS/MINERALS THERAP 1 TAB PO SCH (08:41)
[2016-10-16] MEDS: ALLOPURINOL 100 MG TAB PO SCH (08:41)
[2016-10-16] MEDS: LEVEMIR (INSULIN DETEMIR) 1 UNITS/0.01ML SC SCH ×2 (08:41→21:10)
[2016-10-16] MEDS: GABAPENTIN 300 MG CAP PO SCH ×3 (08:41→21:10)
[2016-10-16 14:00] VITALS: BP 92/43
--- NOTE | 2016-10-16 15:37 | IPNPDOC ---
Subjective Date Seen The patient was seen on 10/16/16. Subjective Chief Complaint/HPI The patient is a 66-year-old male admitted with a reason for visit of Osteomyelitis Of Foot, Left, Acute. Events since last encounter feeling ok, has been oob walking with assistance, no pain, tolerating diet, having bms Pulmonary: Denies: Dyspnea, Cough Cardiovascular: Denies: Chest Pain, Palpitations Gastrointestinal: Denies: Nausea, Vomiting, Abdominal Pain Objective Physical Examination General Exam: Positive: Alert, No Acute Distress ENT Exam: Positive: Mucous membr. moist/pink Neck Exam: Positive: Supple Chest Exam: Positive: Clear to auscultation, Negative: Rales, Rhonchi, Wheezing Heart Exam: Positive: Rate Normal, Regular Rhythm, Normal S1, Normal S2, Negative: Tachycardic, Bradycardic Abdomen Exam: Positive: Normal bowel sounds, Soft, Negative: Tenderness Extremity Exam: Positive: Edema, Other (left lower extremity dressed cleanly) Assessment /Plan Problems (1) Osteomyelitis of foot, left, acute Status: Acute Problem Specific Plan: Consult Specialist Problem Text: POD#3 for debridement Seen by podiatry and infectious disease Continue antibiotics Deep dissue cx shows fungus/staph- followed by ID Had bleeding from surgical site 10/14/16- I discussed with Dr. Cazares at that time- continuing hep drip due to aortic mechanical valve (2) Atrial flutter Status: Chronic Problem Text: on beta blockade - rate controlled no role for telemetry at this point (3) Diabetes Status: Chronic Problem Text: on insulin sliding scale back on consistent carb diet (4) Aortic valve prosthesis present Status: Chronic Problem Text: has mechanical prosthetic valve, on a heparin drip, on coumadin at higher than home dose as of 10/16/16, INR subtherapeutic (5) CKD (chronic kidney disease), stage III Status: Chronic (6) BEENA (obstructive sleep apnea) Status: Chronic Problem Text: suspected, continue continuos pulse ox in setting of post operative care Plan/VTE VTE Prophylaxis Ordered?: Yes VS, I&O, 24H, Fishbone Vital Signs/I&O Vital Signs Date Time Temp Pulse Resp B/P (MAP) Pulse Ox O2 Delivery O2 Flow Rate FiO2 10/16/16 12:29 52 123/66 10/16/16 11:25 96 Room Air 10/16/16 06:00 97.6 18 10/14/16 09:00 2.0 I&O- Last 24 Hours up to 6 AM 10/16/16 06:00 Intake Total 2345 ml Output Total 3520 ml Balance -1175 ml Laboratory Data 24H LABS Laboratory Tests 2 10/15/16 17:23: Bedside Glucose (Misc Panel) 295H 10/16/16 06:24: White Blood Count 3.8L, Red Blood Count 3.03L, Hemoglobin 9.1L, Hematocrit 28.2L , Mean Corpuscular Volume 93.1, Mean Corpuscular Hemoglobin 30.2, Mean Corpuscular Hemoglobin Concent 32.5, Red Cell Distribution Width 15.3H, Platelet Count 204, Neutrophils (%) (Auto) 53.5, Lymphocytes (%) (Auto) 31.6, Monocytes (%) (Auto) 7.8H, Eosinophils (%) (Auto) 4.1H, Basophils (%) (Auto) 0.8 , Neutrophils # (Auto) 2.0, Lymphocytes # (Auto) 1.3L, Monocytes # (Auto) 0.3, Eosinophils # (Auto) 0.2, Basophils # (Auto) 0.0, Large Unclassified Cells % 2.1 , Large Unclassified Cells # 0.1, Prothrombin Time 20.8H, Prothromb Time International Ratio 1.78, Activated Partial Thromboplast Time 83.4H, Anion Gap 8 , Glomerular Filtration Rate 41.4L, Blood Urea Nitrogen 21H, Creatinine 1.76H, Sodium Level 140, Potassium Level 3.6, Chloride Level 106, Carbon Dioxide Level 26, Calcium Level 8.1L, Magnesium Level 1.9 10/16/16 12:01: Bedside Glucose (Misc Panel) 293H CBC/BMP Laboratory Tests 10/16/16 06:24 Red Blood Count 3.03 L, Mean Corpuscular Volume 93.1, Mean Corpuscular Hemoglobin 30.2, Mean Corpuscular Hemoglobin Concent 32.5, Red Cell Distribution Width 15.3 H, Neutrophils (%) (Auto) 53.5, Lymphocytes (%) (Auto) 31.6, Monocytes (%) (Auto) 7.8 H, Eosinophils (%) (Auto) 4.1 H, Basophils (%) ( Auto) 0.8, Neutrophils # (Auto) 2.0, Lymphocytes # (Auto) 1.3 L, Monocytes # ( Auto) 0.3, Eosinophils # (Auto) 0.2, Basophils # (Auto) 0.0, Calcium Level 8.1 L Microbiology Microbiology 10/12/16 Blood Culture - Preliminary, Resulted No Growth after 72 hours. All specime... 10/12/16 Blood Culture - Preliminary, Resulted No Growth after 72 hours. All specime... 10/13/16 Wound Culture - Final, Complete Staphylococcus Epidermidis Yeast Like Organism 10/13/16 Anaerobic Culture - Final, Complete AUTUMN RIVERA MD October 16, 2016 15:37
[2016-10-16] MEDS ORDERED: VANCOMYCIN HCL 1,000 MG, VIAL MATE ADAPTER 1 EACH in D5W 250 ML IV ONE (17:00)
[2016-10-16] MEDS: FUROSEMIDE 40 MG TAB PO SCH (17:26)
[2016-10-16] MEDS: WARFARIN SOD 10 MG TAB PO SCH (17:26)
[2016-10-16] MEDS ORDERED: VANCOMYCIN HCL 500 MG in D5W MINI-BAG PLUS 100 ML IV ONE (18:00)
[2016-10-16] MEDS: ROSUVASTATIN 10 MG TAB (CRESTOR) PO SCH (21:10)
[2016-10-16 22:00] VITALS: BP 117/62
[2016-10-17 01:00] VITALS: BP 139/76
[2016-10-17] MEDS: PIPERACILLIN/TAZOBACTAM SOD 3.375 GM in D5W MINI-BAG PLUS 50 ML IV SCH ×4 (01:00→20:28)
[2016-10-17] MEDS: METOPROLOL TART 25 MG TABLET PO SCH ×4 (01:03→18:42)
[2016-10-17 06:00] VITALS: BP 118/61
--- NOTE | 2016-10-17 06:09 | IPN ---
DATE: 10/16/2016 SUBJECTIVE: Mr. Erazo seems to be doing fairly well. He was out of bed today. He has been afebrile. He has had no nausea, vomiting, or diarrhea. He denies any pain at operative site. Denies any cough, shortness of breath, or chest pain. PHYSICAL EXAMINATION: Temperature is 98.5, pulse 63, respirations 20, blood pressure 92/43, oxygen saturation 97% on room air. HEART: Normal S1, S2 with a systolic ejection murmur, distant. LUNGS: Clear. No wheezes, rales, rhonchi. ABDOMEN: Obese, soft, nontender. EXTREMITIES: Left lower extremity dressing was not removed. Right below-knee amputation. Wound cultures had Staphylococcus epidermidis and yeast-like organism in the left heel and few Staphylococcus epidermidis. Anaerobic cultures: No growth. Blood culture, as previously mentioned, at [facility] positive for Bacteroides as well as Staphylococcus epidermidis on two different dates. LABORATORY DATA: White count is 3.8, hemoglobin 9.1, hematocrit 28.2, platelets 204, 53% neutrophils, 31% lymphocytes, 7% monocytes. Sodium 140, potassium 3.6, chloride 106, bicarbonate 26, BUN 21, creatinine 1.76 , glucose 244, calcium 8.1. CRP was 0.74. IMPRESSION: Acute osteomyelitis of the left foot, status post calcanectomy with culture positive for Staphylococcus epidermidis and few yeast-like organisms, although I do not suspect this is the cause of his infection. Will discuss this with Dr. Cobb. Patient had been on outpatient vancomycin and Zosyn, but the vancomycin had been discontinued. RECOMMENDATIONS AND PLAN: Continue Zosyn at this time as well as IV vancomycin. I will review the record from [facility] to see what the plan of action was to treat him with 6 weeks and probably will continue with same plan at [facility] had planned for him with vancomycin and Zosyn. [facility]
[2016-10-17] MEDS: SODIUM CHLORIDE 0.9% INJ 10 ML SYR IV SCH ×2 (06:13→18:43)
[2016-10-17 07:30] LABS: BASO % 0.8 % (0.0-1.0); EOS # 0.3 K/mm3 (0.0-0.50); EOS % 6.7 % (0.0-3.0); LARGE UNSTAINED CELL # 0.1 K/mm3 (0.0-0.4); LARGE UNSTAINED CELL % 2.5 % (0.0-4.0); LYMPH # 1.2 K/mm3 (1.5-4.5); LYMPH % 27.1 % (24.0-44.0); MEAN CORPUSCULAR HEMOGLOBIN 29.1 pg (27.0-33.0); MEAN CORPUSCULAR HGB CONC 31.1 g/dl (32.0-36.5); MEAN CORPUSCULAR VOLUME 93.7 fl (80.0-96.0); MONO # 0.3 K/mm3 (0.0-0.8); MONO % 8.2 % (0.0-5.0); NEUTROPHILS # 2.3 K/mm3 (1.8-7.7); NEUTROPHILS % 54.7 % (36.0-66.0); PLATELET COUNT, AUTOMATED 213 k/mm3 (150-450); RED CELL DISTRIBUTION WIDTH 15.1 % (11.5-14.5); WHITE BLOOD COUNT 4.1 K/mm3 (4.0-10.0)
[2016-10-17 07:45] LABS: INR 2.02
[2016-10-17 07:46] LABS: CALCIUM LEVEL 8.1 MG/DL (8.8-10.2); CREATININE FOR GFR 1.81 MG/DL (0.70-1.30); GLOMERULAR FILTRATION RATE 40.1 (>49); POTASSIUM SERUM 3.6 MEQ/L (3.5-5.1)
[2016-10-17] MEDS: HumaLOG INSULIN (NovoLOG) PER UNIT SC SCH ×4 (08:47→20:36)
[2016-10-17] MEDS: LEVEMIR (INSULIN DETEMIR) 1 UNITS/0.01ML SC SCH ×2 (08:47→20:29)
[2016-10-17] MEDS: MULTIVITAMINS/MINERALS THERAP 1 TAB PO SCH (08:47)
[2016-10-17] MEDS: GABAPENTIN 300 MG CAP PO SCH ×3 (08:47→20:28)
[2016-10-17] MEDS: PERCOCET 5MG/325MG TAB PO PRN ×3 (08:48→18:43)
[2016-10-17] MEDS: ALLOPURINOL 100 MG TAB PO SCH (08:48)
[2016-10-17] MEDS: FUROSEMIDE 80 MG TAB PO SCH (08:48)
[2016-10-17] MEDS: VANCOMYCIN HCL 1,000 MG, VIAL MATE ADAPTER 1 EACH in D5W 250 ML IV SCH (10:16)
--- NOTE | 2016-10-17 10:26 | IPNPDOC ---
Subjective Date Seen The patient was seen on 10/17/16. Subjective Chief Complaint/HPI The patient is a 66-year-old male admitted with a reason for visit of Osteomyelitis Of Foot, Left, Acute. General: Denies: ROS Unobtainable, Chills, Night Sweats, Fatigue, Malaise, Normal Appetite, Other Symptoms Constitutional: Denies: Chills, Fever, Malaise, Night Sweats, Weakness, Fatigue , Weight Loss, Lethargy, Other Eyes: Denies: Pain, Vision change, Conjunctivae inflammation, Eyelid inflammation, Redness, Other ENT: Denies: Head Aches, Ear Pain, Dysphagia, Sinus Congestion, Post Nasal Drip , Sore Throat, Epistaxis, Other Symptoms Skin: Denies: Rash, Lesions, Jaundice, Bruising, Itching, Dry, Breakdown, Nail Changes, Other Pulmonary: Denies: Dyspnea, Cough, Pleuritic Chest Pain, Other Symptoms Cardiovascular: Denies: Chest Pain, Palpitations, Orthopnea, Paroxysmal Noc. Dyspnea, Edema, Lt Headedness, Other Symptoms Gastrointestinal: Denies: Nausea, Vomiting, Abdominal Pain, Diarrhea, Constipation, Melena, Hematochezia, Other Symptoms Objective Physical Examination General Exam: Positive: Alert, Cooperative, No Acute Distress Eye Exam: Positive: EOMI, Negative: Sclera icteric ENT Exam: Positive: Mucous membr. moist/pink Neck Exam: Positive: Supple Chest Exam: Positive: Clear to auscultation, Negative: Rales, Rhonchi, Wheezing Heart Exam: Positive: Rate Normal, Regular Rhythm, Normal S1, Normal S2, Negative: Tachycardic, Bradycardic Abdomen Exam: Positive: Normal bowel sounds, Soft, Negative: Tenderness Extremity Exam: Positive: Edema, Other (left lower extremity dressed in place, right BKA) Psych Exam: Positive: Oriented x 3 Assessment /Plan Problems (1) Osteomyelitis of foot, left, acute Status: Acute Problem Specific Plan: Consult Specialist Problem Text: POD#4 for debridement Seen by podiatry and infectious disease Continue antibiotics - zosyn , vanco Deep tissue cx shows fungus/staph- followed by ID Had bleeding from surgical site 10/14/16- discussed with Dr. Cazares at that time- continuing hep drip due to aortic mechanical valve - INR 2.02 today - target 2.5 - 3.5 (2) Atrial flutter Status: Chronic Problem Text: on beta blockade - rate controlled no role for telemetry at this point (3) Diabetes Status: Chronic Problem Text: on insulin sliding scale back on consistent carb diet (4) Aortic valve prosthesis present Status: Chronic Problem Text: has mechanical prosthetic valve, on a heparin drip, on coumadin at higher than home dose as of 10/16/16, INR subtherapeutic (5) CKD (chronic kidney disease), stage III Status: Chronic (6) BEENA (obstructive sleep apnea) Status: Chronic Problem Text: suspected, continue continuos pulse ox in setting of post operative care Plan/VTE VTE Prophylaxis Ordered?: Yes (heparin drip/coumadin) Plan Diet: Continue Current Anticipated Discharge: Home With Services To determine appropriate abx coverage and duration. Still on heparin gtt/coumdain pending therapeutic INR. VS, I&O, 24H, Fishbone Vital Signs/I&O Vital Signs Date Time Temp Pulse Resp B/P (MAP) Pulse Ox O2 Delivery O2 Flow Rate FiO2 10/17/16 09:51 Room Air 10/17/16 09:18 18 10/17/16 06:14 60 118/61 10/17/16 06:00 98.9 94 10/14/16 09:00 2.0 I&O- Last 24 Hours up to 6 AM 10/17/16 06:00 Intake Total 2202 ml Output Total 4080 ml Balance -1878 ml Laboratory Data 24H LABS Laboratory Tests 2 10/16/16 12:01: Bedside Glucose (Misc Panel) 293H 10/16/16 17:11: Bedside Glucose (Misc Panel) 336H 10/16/16 20:43: Bedside Glucose (Misc Panel) 412H 10/17/16 07:14: White Blood Count 4.1, Red Blood Count 2.98L, Hemoglobin 8.7L, Hematocrit 28.0L , Mean Corpuscular Volume 93.7, Mean Corpuscular Hemoglobin 29.1, Mean Corpuscular Hemoglobin Concent 31.1L, Red Cell Distribution Width 15.1H, Platelet Count 213, Neutrophils (%) (Auto) 54.7, Lymphocytes (%) (Auto) 27.1, Monocytes (%) (Auto) 8.2H, Eosinophils (%) (Auto) 6.7H, Basophils (%) (Auto) 0.8 , Neutrophils # (Auto) 2.3, Lymphocytes # (Auto) 1.2L, Monocytes # (Auto) 0.3, Eosinophils # (Auto) 0.3, Basophils # (Auto) 0.0, Large Unclassified Cells % 2.5 , Large Unclassified Cells # 0.1, Prothrombin Time 22.9H, Prothromb Time International Ratio 2.02, Activated Partial Thromboplast Time 83.9H, Anion Gap 8 , Glomerular Filtration Rate 40.1L, Blood Urea Nitrogen 20H, Creatinine 1.81H, Sodium Level 140, Potassium Level 3.6, Chloride Level 103, Carbon Dioxide Level 29, Calcium Level 8.1L CBC/BMP Laboratory Tests 10/17/16 07:14 Red Blood Count 2.98 L, Mean Corpuscular Volume 93.7, Mean Corpuscular Hemoglobin 29.1, Mean Corpuscular Hemoglobin Concent 31.1 L, Red Cell Distribution Width 15.1 H, Neutrophils (%) (Auto) 54.7, Lymphocytes (%) (Auto) 27.1, Monocytes (%) (Auto) 8.2 H, Eosinophils (%) (Auto) 6.7 H, Basophils (%) ( Auto) 0.8, Neutrophils # (Auto) 2.3, Lymphocytes # (Auto) 1.2 L, Monocytes # ( Auto) 0.3, Eosinophils # (Auto) 0.3, Basophils # (Auto) 0.0, Calcium Level 8.1 L Microbiology Microbiology 10/12/16 Blood Culture - Preliminary, Resulted No Growth after 72 hours. All specime... 10/12/16 Blood Culture - Preliminary, Resulted No Growth after 72 hours. All specime... 10/16/16 Stool Occult Blood (JACOBY) - Final, Complete 10/13/16 Wound Culture - Final, Complete Staphylococcus Epidermidis Yeast Like Organism 10/13/16 Anaerobic Culture - Final, Complete ADILIA FALCON MD October 17, 2016 10:25
[2016-10-17 14:00] VITALS: BP 121/55
--- NOTE | 2016-10-17 15:43 | IPN ---
DATE: 10/17/2016 Mr. Erazo seems to be doing very well. He is in good spirits. He has no nausea, vomiting or diarrhea. No abdominal pain, fever or chills. The patient is tolerating IV antibiotic. He is on IV vancomycin and Zosyn. I called Dr. Cobb who has been away and discussed his wound care. His dressing was changed. There is a lot of bleeding, but no evidence of purulence; is all bloody drainage coming out of the wound. The wound looks clean. There is a Charcot arthropathy and a lot of swelling, but otherwise no tenderness or purulence. LABORATORY DATA White count is 4.1, hemoglobin 8.7, hematocrit 28, platelets 213, 54% neutrophils, 27% lymphocytes, 8% monocytes. Sodium 140, potassium 3.6, chloride 103, bicarb 28, BUN 20, creatinine 1.81, glucose 234, creatinine has increased from 1.4 on admission. Wound culture is positive for staphylococcus epidermidis and yeastlike organism. Blood cultures on 10/12, two sets, were negative after 5 days. Stool Hemoccult is negative. PHYSICAL EXAMINATION Temperature is 98.9, pulse 60, respirations 14, blood pressure 118/61, O2 sat 94% on room air. Heart: Normal S1-S2 with a click. Lungs: Diminished at the bases but clear. Abdomen: Morbidly obese, soft, nontender. Extremities: +1 edema bilaterally. Right leg amputation. Left leg has had a calcanectomy a circular wound on the heel extending all the way into the Achilles tendon with bloody drainage. No tenderness. No redness, Charcot arthropathy. IMPRESSION Acute osteomyelitis of the left foot with Charcot arthropathy. Blood cultures were positive for staph epidermidis and bacteroides at [facility]. Wound culture intraoperatively, bone culture from calcaneus were positive for staph epidermidis and yeastlike organism. I discussed the case with Dr. Cobb who agrees to treat the staph epidermidis and the bacteroides. Will continue with IV vancomycin and Zosyn as previously ordered by [facility].
[2016-10-17] MEDS: WARFARIN SOD 10 MG TAB PO SCH (18:42)
[2016-10-17] MEDS: FUROSEMIDE 40 MG TAB PO SCH (18:42)
[2016-10-17] MEDS: ROSUVASTATIN 10 MG TAB (CRESTOR) PO SCH (20:28)
[2016-10-17 22:00] VITALS: BP 125/60
[2016-10-18] MEDS: PIPERACILLIN/TAZOBACTAM SOD 3.375 GM in D5W MINI-BAG PLUS 50 ML IV SCH ×4 (00:56→20:23)
[2016-10-18] MEDS: METOPROLOL TART 25 MG TABLET PO SCH ×4 (00:57→17:35)
[2016-10-18] MEDS: HEPARIN DRIP 25,000 UNITS in APPROPRIATE DILUENT 1 EA IV SCH ×2 (01:02→17:26)
[2016-10-18 06:00] VITALS: BP 125/62
[2016-10-18] MEDS: SODIUM CHLORIDE 0.9% INJ 10 ML SYR IV SCH ×2 (06:37→17:31)
[2016-10-18 06:53] LABS: BASO % 0.9 % (0.0-1.0); EOS # 0.2 K/mm3 (0.0-0.50); EOS % 6.3 % (0.0-3.0); LARGE UNSTAINED CELL # 0.1 K/mm3 (0.0-0.4); LARGE UNSTAINED CELL % 2.2 % (0.0-4.0); LYMPH # 1.3 K/mm3 (1.5-4.5); LYMPH % 30.7 % (24.0-44.0); MEAN CORPUSCULAR HEMOGLOBIN 29.6 pg (27.0-33.0); MEAN CORPUSCULAR HGB CONC 31.4 g/dl (32.0-36.5); MEAN CORPUSCULAR VOLUME 94.1 fl (80.0-96.0); MONO # 0.3 K/mm3 (0.0-0.8); MONO % 6.4 % (0.0-5.0); NEUTROPHILS # 2.1 K/mm3 (1.8-7.7); NEUTROPHILS % 53.6 % (36.0-66.0); PLATELET COUNT, AUTOMATED 237 k/mm3 (150-450); RED CELL DISTRIBUTION WIDTH 14.9 % (11.5-14.5); WHITE BLOOD COUNT 3.8 K/mm3 (4.0-10.0)
[2016-10-18 07:10] LABS: CALCIUM LEVEL 8.5 MG/DL (8.8-10.2); CREATININE FOR GFR 1.74 MG/DL (0.70-1.30); INR 2.16; POTASSIUM SERUM 4.1 MEQ/L (3.5-5.1)
--- NOTE | 2016-10-18 08:04 | IPNPDOC ---
Subjective Date Seen The patient was seen on 10/18/16. Subjective Chief Complaint/HPI The patient is a 66-year-old male admitted with a reason for visit of Osteomyelitis Of Foot, Left, Acute. General: Denies: ROS Unobtainable, Chills, Night Sweats, Fatigue, Malaise, Normal Appetite, Other Symptoms Constitutional: Denies: Chills, Fever, Malaise, Night Sweats, Weakness, Fatigue , Weight Loss, Lethargy, Other Eyes: Denies: Pain, Vision change, Conjunctivae inflammation, Eyelid inflammation, Redness, Other ENT: Denies: Head Aches, Ear Pain, Dysphagia, Sinus Congestion, Post Nasal Drip , Sore Throat, Epistaxis, Other Symptoms Skin: Denies: Rash, Lesions, Jaundice, Bruising, Itching, Dry, Breakdown, Nail Changes, Other Pulmonary: Denies: Dyspnea, Cough, Pleuritic Chest Pain, Other Symptoms Cardiovascular: Denies: Chest Pain, Palpitations, Orthopnea, Paroxysmal Noc. Dyspnea, Edema, Lt Headedness, Other Symptoms Gastrointestinal: Denies: Nausea, Vomiting, Abdominal Pain, Diarrhea, Constipation, Melena, Hematochezia, Other Symptoms Objective Physical Examination General Exam: Positive: Alert, Cooperative, No Acute Distress Eye Exam: Positive: Conjunctiva & lids normal, EOMI, Negative: Sclera icteric ENT Exam: Positive: Atraumatic, Mucous membr. moist/pink Neck Exam: Positive: Supple Chest Exam: Positive: Clear to auscultation, Negative: Rales, Rhonchi, Wheezing Heart Exam: Positive: Rate Normal, Regular Rhythm, Other (systolic click), Negative: Tachycardic, Bradycardic Abdomen Exam: Positive: Normal bowel sounds, Soft, Negative: Tenderness Extremity Exam: Positive: Edema, Other (left lower extremity dressed in place, right BKA) Psych Exam: Positive: Oriented x 3 Assessment /Plan Problems (1) Osteomyelitis of foot, left, acute Status: Acute Problem Specific Plan: Consult Specialist Problem Text: POD#5 for debridement - plan possibly for wound closure 10/19/16 Seen by podiatry and infectious disease Continue antibiotics - zosyn , vanco Deep tissue cx shows fungus/staph- followed by ID Had bleeding from surgical site 10/14/16- discussed with Dr. Cazares at that time- continuing hep drip/coumadin due to aortic mechanical valve - INR 2.16 today - target 2.5 - 3.5 (2) Atrial flutter Status: Chronic Problem Text: on beta blockade - rate controlled no role for telemetry at this point (3) Diabetes Status: Chronic Problem Text: on insulin sliding scale back on consistent carb diet (4) Aortic valve prosthesis present Status: Chronic Problem Text: has mechanical prosthetic valve, on a heparin drip, on coumadin at higher than home dose as of 10/16/16, INR subtherapeutic (5) CKD (chronic kidney disease), stage III Status: Chronic (6) BEENA (obstructive sleep apnea) Status: Chronic Problem Text: suspected, continue continuos pulse ox in setting of post operative care Plan/VTE VTE Prophylaxis Ordered?: Yes (heparin drip/coumadin) Plan Diet: Continue Current Activity: Continue Current Pt and Family Services: Home Care Diagnostics: Repeat Labs in AM Anticipated Discharge: Home With Services VS, I&O, 24H, [facility] Vital Signs/I&O Vital Signs Date Time Temp Pulse Resp B/P (MAP) Pulse Ox O2 Delivery O2 Flow Rate FiO2 10/18/16 06:37 96 125/62 10/18/16 06:00 98.0 18 99 Room Air 10/18/16 02:05 2.0 I&O- Last 24 Hours up to 6 AM 10/18/16 05:59 Intake Total 2058 ml Output Total 3000 ml Balance -942 ml Laboratory Data 24H LABS Laboratory Tests 2 10/18/16 06:35: White Blood Count 3.8L, Red Blood Count 2.92L, Hemoglobin 8.6L, Hematocrit 27.4L , Mean Corpuscular Volume 94.1, Mean Corpuscular Hemoglobin 29.6, Mean Corpuscular Hemoglobin Concent 31.4L, Red Cell Distribution Width 14.9H, Platelet Count 237, Neutrophils (%) (Auto) 53.6, Lymphocytes (%) (Auto) 30.7, Monocytes (%) (Auto) 6.4H, Eosinophils (%) (Auto) 6.3H, Basophils (%) (Auto) 0.9 , Neutrophils # (Auto) 2.1, Lymphocytes # (Auto) 1.3L, Monocytes # (Auto) 0.3, Eosinophils # (Auto) 0.2, Basophils # (Auto) 0.0, Large Unclassified Cells % 2.2 , Large Unclassified Cells # 0.1, Prothrombin Time 24.2H, Prothromb Time International Ratio 2.16, Activated Partial Thromboplast Time 86.2H, Anion Gap 4L, Glomerular Filtration Rate 42.0L, Blood Urea Nitrogen 21H, Creatinine 1.74H , Sodium Level 140, Potassium Level 4.1, Chloride Level 104, Carbon Dioxide Level 32, Calcium Level 8.5L, Magnesium Level 2.0 CBC/BMP Laboratory Tests 10/18/16 06:35 Red Blood Count 2.92 L, Mean Corpuscular Volume 94.1, Mean Corpuscular Hemoglobin 29.6, Mean Corpuscular Hemoglobin Concent 31.4 L, Red Cell Distribution Width 14.9 H, Neutrophils (%) (Auto) 53.6, Lymphocytes (%) (Auto) 30.7, Monocytes (%) (Auto) 6.4 H, Eosinophils (%) (Auto) 6.3 H, Basophils (%) ( Auto) 0.9, Neutrophils # (Auto) 2.1, Lymphocytes # (Auto) 1.3 L, Monocytes # ( Auto) 0.3, Eosinophils # (Auto) 0.2, Basophils # (Auto) 0.0, Calcium Level 8.5 L Microbiology Microbiology 10/12/16 Blood Culture - Final, Complete NO GROWTH AFTER 5 DAYS 10/12/16 Blood Culture - Final, Complete NO GROWTH AFTER 5 DAYS 10/17/16 Stool Occult Blood (JACOBY) - Final, Complete 10/16/16 Stool Occult Blood (JACOBY) - Final, Complete 10/13/16 Wound Culture - Final, Complete Staphylococcus Epidermidis Yeast Like Organism 10/13/16 Anaerobic Culture - Final, Complete ADILIA FALCON MD October 18, 2016 08:04
[2016-10-18] MEDS: GABAPENTIN 300 MG CAP PO SCH ×3 (09:20→20:23)
[2016-10-18] MEDS: HumaLOG INSULIN (NovoLOG) PER UNIT SC SCH ×4 (09:20→21:04)
[2016-10-18] MEDS: FUROSEMIDE 80 MG TAB PO SCH (09:20)
[2016-10-18] MEDS: MULTIVITAMINS/MINERALS THERAP 1 TAB PO SCH (09:20)
[2016-10-18] MEDS: ALLOPURINOL 100 MG TAB PO SCH (09:20)
[2016-10-18] MEDS: LEVEMIR (INSULIN DETEMIR) 1 UNITS/0.01ML SC SCH ×2 (09:21→21:03)
[2016-10-18] MEDS: VANCOMYCIN HCL 1,000 MG, VIAL MATE ADAPTER 1 EACH in D5W 250 ML IV SCH (10:24)
[2016-10-18 14:00] VITALS: BP 114/59
--- NOTE | 2016-10-18 14:44 | IPN ---
DATE OF SERVICE: 10/18/2016 at 2:20 p.m. CHIEF COMPLAINT: The patient seen for evaluation, status post category 2 calcanectomy of the left heel. The patient has had some minor breakthrough bleeding but no recent bleeding on his prior bandage reinforcement. This was removed today. There is a Drawtex dressing in the wound with good granulation tissue noted along the wound bed. No active bleeding is noted at this time. Some granulation tissue is noted throughout the wound bed without any purulence. The patient's laboratory studies were reviewed, revealing bone culture of Staphylococcus epidermitis sensitive to tetracycline, gentamicin, and vancomycin. The patient's white blood count is 3.8. His INR is 2.16. ASSESSMENT: Stage 4 wound, status post category 2 calcanectomy for osteomyelitis of the left calcaneus. PLAN: The patient will be nothing by mouth after breakfast tomorrow. He will stop his heparin drip at 5 a.m. The patient scheduled for surgery at 5 p.m., incisional debridement to bone, followed by closure of the posterior wound and application of wound vacuum-assisted closure (VAC) on the lower wound, a white and black spiral composite dressing. The patient's questions were answered. Informed consent was obtained.
[2016-10-18] MEDS: WARFARIN SOD 10 MG TAB PO SCH (17:28)
[2016-10-18] MEDS: FUROSEMIDE 40 MG TAB PO SCH (17:28)
[2016-10-18] MEDS: ROSUVASTATIN 10 MG TAB (CRESTOR) PO SCH (20:23)
[2016-10-18 22:00] VITALS: BP 125/60
[2016-10-19] MEDS: METOPROLOL TART 25 MG TABLET PO SCH ×5 (01:00→23:21)
[2016-10-19] MEDS: PIPERACILLIN/TAZOBACTAM SOD 3.375 GM in D5W MINI-BAG PLUS 50 ML IV SCH ×4 (01:00→21:17)
[2016-10-19 06:00] VITALS: BP 135/55
[2016-10-19] MEDS: SODIUM CHLORIDE 0.9% INJ 10 ML SYR IV SCH ×2 (06:44→21:17)
[2016-10-19 06:55] LABS: BASO % 1.2 % (0.0-1.0); EOS # 0.2 K/mm3 (0.0-0.50); EOS % 6.3 % (0.0-3.0); LARGE UNSTAINED CELL # 0.1 K/mm3 (0.0-0.4); LARGE UNSTAINED CELL % 2.9 % (0.0-4.0); LYMPH % 26.8 % (24.0-44.0); MEAN CORPUSCULAR HEMOGLOBIN 29.4 pg (27.0-33.0); MEAN CORPUSCULAR HGB CONC 30.8 g/dl (32.0-36.5); MEAN CORPUSCULAR VOLUME 95.4 fl (80.0-96.0); MONO # 0.3 K/mm3 (0.0-0.8); MONO % 8.4 % (0.0-5.0); NEUTROPHILS # 2.1 K/mm3 (1.8-7.7); NEUTROPHILS % 54.3 % (36.0-66.0); PLATELET COUNT, AUTOMATED 233 k/mm3 (150-450); WHITE BLOOD COUNT 3.8 K/mm3 (4.0-10.0)
[2016-10-19 07:00] LABS: INR 2.33
[2016-10-19 07:07] LABS: CALCIUM LEVEL 7.9 MG/DL (8.8-10.2); CREATININE FOR GFR 1.79 MG/DL (0.70-1.30); GLOMERULAR FILTRATION RATE 40.6 (>49); MAGNESIUM LEVEL 2.2 MG/DL (1.8-2.4); POTASSIUM SERUM 3.7 MEQ/L (3.5-5.1)
[2016-10-19] MEDS: HumaLOG INSULIN (NovoLOG) PER UNIT SC SCH ×4 (08:08→21:53)
[2016-10-19] MEDS: GABAPENTIN 300 MG CAP PO SCH ×3 (08:08→21:41)
[2016-10-19] MEDS: LEVEMIR (INSULIN DETEMIR) 1 UNITS/0.01ML SC SCH ×2 (08:09→21:41)
[2016-10-19] MEDS: PERCOCET 5MG/325MG TAB PO PRN ×2 (08:09→13:12)
[2016-10-19] MEDS: ALLOPURINOL 100 MG TAB PO SCH (08:09)
[2016-10-19] MEDS: MULTIVITAMINS/MINERALS THERAP 1 TAB PO SCH (08:09)
[2016-10-19] MEDS: FUROSEMIDE 80 MG TAB PO SCH (08:09)
--- NOTE | 2016-10-19 08:29 | IPNPDOC ---
Subjective Date Seen The patient was seen on 10/19/16. Subjective Chief Complaint/HPI The patient is a 66-year-old male admitted with a reason for visit of Osteomyelitis Of Foot, Left, Acute. General: Denies: ROS Unobtainable, Chills, Night Sweats, Fatigue, Malaise, Normal Appetite, Other Symptoms Constitutional: Denies: Chills, Fever, Malaise, Night Sweats, Weakness, Fatigue , Weight Loss, Lethargy, Other Eyes: Denies: Pain, Vision change, Conjunctivae inflammation, Eyelid inflammation, Redness, Other ENT: Denies: Head Aches, Ear Pain, Dysphagia, Sinus Congestion, Post Nasal Drip , Sore Throat, Epistaxis, Other Symptoms Skin: Denies: Rash, Lesions, Jaundice, Bruising, Itching, Dry, Breakdown, Nail Changes, Other Pulmonary: Denies: Dyspnea, Cough, Pleuritic Chest Pain, Other Symptoms Cardiovascular: Denies: Chest Pain, Palpitations, Orthopnea, Paroxysmal Noc. Dyspnea, Edema, Lt Headedness, Other Symptoms Gastrointestinal: Denies: Nausea, Vomiting, Abdominal Pain, Diarrhea, Constipation, Melena, Hematochezia, Other Symptoms Genitourinary: Denies: Dysuria, Frequency, Incontinence, Hematuria, Retention, Other Symptoms Objective Physical Examination General Exam: Positive: Alert, Cooperative, No Acute Distress Eye Exam: Positive: PERRLA, Conjunctiva & lids normal, EOMI, Negative: Sclera icteric ENT Exam: Positive: Atraumatic, Mucous membr. moist/pink Neck Exam: Positive: Supple Chest Exam: Positive: Clear to auscultation, Normal air movement, Negative: Rales, Rhonchi, Wheezing Heart Exam: Positive: Rate Normal, Regular Rhythm, Other (systolic click), Negative: Tachycardic, Bradycardic Abdomen Exam: Positive: Normal bowel sounds, Soft, Negative: Tenderness Extremity Exam: Positive: Edema, Other (left lower extremity dressed in place, right BKA) Psych Exam: Positive: Oriented x 3 Assessment /Plan Problems (1) Osteomyelitis of foot, left, acute Status: Acute Problem Specific Plan: Consult Specialist Problem Text: POD#6 for debridement - plan wound closure today Seen by podiatry and infectious disease Continue antibiotics - zosyn , vanco Deep tissue cx shows fungus/staph- followed by ID Had bleeding from surgical site 10/14/16- discussed with Dr. Cazares at that time- continuing hep drip/coumadin due to aortic mechanical valve - INR 2.16 today - target 2.5 - 3.5 (2) Atrial flutter Status: Chronic Problem Text: on beta blockade - rate controlled no role for telemetry at this point (3) Diabetes Status: Chronic Problem Text: on insulin sliding scale back on consistent carb diet (4) Aortic valve prosthesis present Status: Chronic Problem Text: has mechanical prosthetic valve, heparin drip on hold as per podiatry for planned surgical intervention today - to resume as per surgery recs - on coumadin at higher than home dose as of 10/16/16, (5) CKD (chronic kidney disease), stage III Status: Chronic (6) BEENA (obstructive sleep apnea) Status: Chronic Problem Text: suspected, continue continuos pulse ox in setting of post operative care Plan/VTE VTE Prophylaxis Ordered?: Yes (heparin drip/coumadin) Plan Diet: Continue Current Activity: Continue Current Pt and Family Services: Home Care Diagnostics: Repeat Labs in AM Anticipated Discharge: Home With Services Wound closure planned for today by podiatry at 5pm Resume heparin gtt as per podiatry. needs therapeutic inr before discharge (2.5 - 3.5) VS, I&O, 24H, [facility] Vital Signs/I&O Vital Signs Date Time Temp Pulse Resp B/P (MAP) Pulse Ox O2 Delivery O2 Flow Rate FiO2 10/19/16 08:14 Room Air 10/19/16 08:09 18 10/19/16 06:44 89 135/55 10/19/16 06:00 97.9 100 2.0 I&O- Last 24 Hours up to 6 AM 10/19/16 05:59 Intake Total 2597 ml Output Total 4200 ml Balance -1603 ml Laboratory Data 24H LABS Laboratory Tests 2 10/18/16 12:00: Bedside Glucose (Misc Panel) 424H 10/18/16 16:37: Bedside Glucose (Misc Panel) 458H 10/18/16 20:19: Bedside Glucose Confirm (Misc) 488*H 10/19/16 00:55: Bedside Glucose (Misc Panel) 365H 10/19/16 06:29: White Blood Count 3.8L, Red Blood Count 2.87L, Hemoglobin 8.4L, Hematocrit 27.4L , Mean Corpuscular Volume 95.4, Mean Corpuscular Hemoglobin 29.4, Mean Corpuscular Hemoglobin Concent 30.8L, Red Cell Distribution Width 15.0H, Platelet Count 233, Neutrophils (%) (Auto) 54.3, Lymphocytes (%) (Auto) 26.8, Monocytes (%) (Auto) 8.4H, Eosinophils (%) (Auto) 6.3H, Basophils (%) (Auto) 1.2H, Neutrophils # (Auto) 2.1, Lymphocytes # (Auto) 1.0L, Monocytes # (Auto) 0.3, Eosinophils # (Auto) 0.2, Basophils # (Auto) 0.0, Large Unclassified Cells % 2.9, Large Unclassified Cells # 0.1, Prothrombin Time 25.6H, Prothromb Time International Ratio 2.33, Activated Partial Thromboplast Time 52.9H, Anion Gap 7L, Glomerular Filtration Rate 40.6L, Blood Urea Nitrogen 21H, Creatinine 1.79H , Sodium Level 139, Potassium Level 3.7, Chloride Level 103, Carbon Dioxide Level 29, Calcium Level 7.9L, Magnesium Level 2.2 10/19/16 07:18: Vancomycin Level Trough 6.5L CBC/BMP Laboratory Tests 10/19/16 06:29 Red Blood Count 2.87 L, Mean Corpuscular Volume 95.4, Mean Corpuscular Hemoglobin 29.4, Mean Corpuscular Hemoglobin Concent 30.8 L, Red Cell Distribution Width 15.0 H, Neutrophils (%) (Auto) 54.3, Lymphocytes (%) (Auto) 26.8, Monocytes (%) (Auto) 8.4 H, Eosinophils (%) (Auto) 6.3 H, Basophils (%) ( Auto) 1.2 H, Neutrophils # (Auto) 2.1, Lymphocytes # (Auto) 1.0 L, Monocytes # ( Auto) 0.3, Eosinophils # (Auto) 0.2, Basophils # (Auto) 0.0, Calcium Level 7.9 L Microbiology Microbiology 10/12/16 Blood Culture - Final, Complete NO GROWTH AFTER 5 DAYS 10/12/16 Blood Culture - Final, Complete NO GROWTH AFTER 5 DAYS 10/18/16 Stool Occult Blood (JACOBY) - Final, Complete 10/17/16 Stool Occult Blood (JACOBY) - Final, Complete 10/16/16 Stool Occult Blood (JACOBY) - Final, Complete 10/13/16 Wound Culture - Final, Complete Staphylococcus Epidermidis Yeast Like Organism 10/13/16 Anaerobic Culture - Final, Complete ADILIA FALCON MD October 19, 2016 08:29
[2016-10-19] MEDS: VANCOMYCIN HCL 1,000 MG, VIAL MATE ADAPTER 1 EACH in D5W 250 ML IV SCH ×2 (09:47→21:41)
--- NOTE | 2016-10-19 11:53 | PHACANCOPD ---
PHARMACY VANCOMYCIN DOSING Pt Demographics Demographics Patient Age:66 , Weight:155.000 , Gender: male Adjusted Body Weight Date: 10/19/16, Adjusted Body Weight: Kg Vancomycin Vancomycin indication: Osteomyelitis Vancomycin Target Ranges: 15-20 mcg/ml Vancomycin Load Y/N: Yes Load Dose Date Time Vancomycin Load Dose: 1500mg Date: 10/16/16 Time: 1700 Vancomycin Dose Date: 10/19/16. Current Vancomycin Dose: [1g IV Q24H] Intermittent Dosing?: No Labs Labs Item Value Date Time Red Blood Count 2.87 M/mm3 L 10/19/16 0629 White Blood Count 3.8 K/mm3 L 10/19/16 0629 White Blood Count 3.8 K/mm3 L 10/18/16 0635 White Blood Count 4.1 K/mm3 10/17/16 0714 Micro Microbiology 10/12/16 Blood Culture - Final, Complete NO GROWTH AFTER 5 DAYS 10/12/16 Blood Culture - Final, Complete NO GROWTH AFTER 5 DAYS 10/18/16 Stool Occult Blood (JACOBY) - Final, Complete 10/17/16 Stool Occult Blood (JACOBY) - Final, Complete 10/16/16 Stool Occult Blood (JACOBY) - Final, Complete 10/13/16 Wound Culture - Final, Complete Staphylococcus Epidermidis Yeast Like Organism 10/13/16 Anaerobic Culture - Final, Complete Creatinine Clearance Date:10/19/16. Estimated Creatinine Clearance: [~45ml/min]. Pending Labs Vancomycin trough scheduled 10/20/16 @1999 Assessment and Plan Maintaining Current Dose?: No Reason for dose change: Trough too low Pharmacist Note Pharmacist Note Date: 10/19/16. Pharmacist note: Trough today resulted at 6.5mcg/ml. Scr and output remain stable. I will decrease the frequency from Q24H to Q12H, and schedule a follow-up trough level for 10/20/16 @1999. We will continue to monitor. SUHAS WIL[facility] October 19, 2016 11:53
[2016-10-19 14:00] VITALS: BP 132/67
[2016-10-19] MEDS ORDERED: LIDOCAINE 2% MDV 20 ML VIAL As Ordered ONE (15:02)
[2016-10-19] MEDS ORDERED: BUPIVACAINE HCL 0.5% 30 ML VIAL As Ordered ONE (15:02)
[2016-10-19] MEDS ORDERED: dexameTHASONE 4 MG/ML 1ML VIAL (J1100) As Ordered ONE (15:03)
[2016-10-19] MEDS ORDERED: NEOSPORIN GU IRRIG 20 ML VIAL As Ordered ONE (15:03)
[2016-10-19] MEDS ORDERED: BACITRACIN PWD 50,000 UNITS VIAL As Ordered ONE (15:03)
[2016-10-19] MEDS ORDERED: VANCOMYCIN HCL 500 MG/10 ML VIAL (J3370) As Ordered ONE (17:14)
[2016-10-19] MEDS ORDERED: GENTAMICIN SULF INJ 80MG/2ML VIAL (J1580) As Ordered ONE (17:14)
[2016-10-19] MEDS ORDERED: TOBRAMYCIN SULF 1.2 GM VIAL As Ordered ONE (17:34)
[2016-10-19] MEDS ORDERED: LIDOCAINE 2% INJ 100 MG/5 ML SDV (FOR ANES.) As Ordered ONE (17:43)
[2016-10-19] MEDS ORDERED: fentaNYL 100 MCG/2 ML INJECTION (J3010) As Ordered ONE (17:43)
[2016-10-19] MEDS ORDERED: PROPOFOL 200 MG/20 ML VIAL As Ordered ONE (17:43)
[2016-10-19] MEDS ORDERED: MIDAZOLAM INJ 2 MG/2 ML VIAL (J2250) As Ordered ONE (17:43)
[2016-10-19] MEDS: WARFARIN SOD 10 MG TAB PO SCH (18:27)
[2016-10-19] MEDS ORDERED: LR 1,000 ML IV SCH (19:30)
[2016-10-19] MEDS ORDERED: fentaNYL 100 MCG/2 ML INJECTION (J3010) IV PRN (19:30)
[2016-10-19] MEDS ORDERED: ONDANSETRON 4MG/2ML VIAL (J2405) IV PRN (19:30)
[2016-10-19 20:00] VITALS: BP 133/79
[2016-10-19 21:00] VITALS: BP 138/72
[2016-10-19] MEDS: FUROSEMIDE 40 MG TAB PO SCH (21:17)
[2016-10-19] MEDS: ROSUVASTATIN 10 MG TAB (CRESTOR) PO SCH (21:40)
[2016-10-19 22:00] VITALS: BP 135/70
[2016-10-19 23:00] VITALS: BP 138/67
[2016-10-19] MEDS: HEPARIN DRIP 25,000 UNITS in APPROPRIATE DILUENT 1 EA IV SCH (23:20)
[2016-10-20] MEDS: PIPERACILLIN/TAZOBACTAM SOD 3.375 GM in D5W MINI-BAG PLUS 50 ML IV SCH ×4 (01:44→20:35)
[2016-10-20 02:00] VITALS: BP 135/55
[2016-10-20 06:00] VITALS: BP 129/80
[2016-10-20] MEDS: METOPROLOL TART 25 MG TABLET PO SCH ×4 (06:33→23:27)
[2016-10-20] MEDS: SODIUM CHLORIDE 0.9% INJ 10 ML SYR IV SCH ×2 (06:34→17:23)
[2016-10-20 06:52] LABS: INR 2.47
--- NOTE | 2016-10-20 08:04 | IPNPDOC ---
Subjective Date Seen The patient was seen on 10/20/16. Subjective Chief Complaint/HPI The patient is a 66-year-old male admitted with a reason for visit of Osteomyelitis Of Foot, Left, Acute. General: Denies: ROS Unobtainable, Chills, Night Sweats, Fatigue, Malaise, Normal Appetite, Other Symptoms Constitutional: Denies: Chills, Fever, Malaise, Night Sweats, Weakness, Fatigue , Weight Loss, Lethargy, Other Eyes: Denies: Pain, Vision change, Conjunctivae inflammation, Eyelid inflammation, Redness, Other ENT: Denies: Head Aches, Ear Pain, Dysphagia, Sinus Congestion, Post Nasal Drip , Sore Throat, Epistaxis, Other Symptoms Skin: Denies: Rash, Lesions, Jaundice, Bruising, Itching, Dry, Breakdown, Nail Changes, Other Pulmonary: Denies: Dyspnea, Cough, Pleuritic Chest Pain, Other Symptoms Cardiovascular: Denies: Chest Pain, Palpitations, Orthopnea, Paroxysmal Noc. Dyspnea, Edema, Lt Headedness, Other Symptoms Gastrointestinal: Denies: Nausea, Vomiting, Abdominal Pain, Diarrhea, Constipation, Melena, Hematochezia, Other Symptoms Genitourinary: Denies: Dysuria, Frequency, Incontinence, Hematuria, Retention, Other Symptoms Objective Physical Examination General Exam: Positive: Alert, Cooperative, No Acute Distress Eye Exam: Positive: PERRLA, Conjunctiva & lids normal, EOMI, Negative: Sclera icteric ENT Exam: Positive: Atraumatic, Mucous membr. moist/pink Neck Exam: Positive: Supple Chest Exam: Positive: Clear to auscultation, Normal air movement, Negative: Rales, Rhonchi, Wheezing Heart Exam: Positive: Rate Normal, Regular Rhythm, Other (systolic click) Abdomen Exam: Positive: Normal bowel sounds, Soft, Negative: Tenderness Extremity Exam: Positive: Edema, Other (left lower extremity dressed in place, right BKA) Psych Exam: Positive: Oriented x 3 Assessment /Plan Problems (1) Osteomyelitis of foot, left, acute Status: Acute Problem Specific Plan: Consult Specialist Problem Text: POD#1 for incisional debridement to bone, and closure of posterior wound waiting for home wound vac Seen by podiatry and infectious disease Continue antibiotics - zosyn , vanco Deep tissue cx shows fungus/staph- followed by ID Had bleeding from surgical site 10/14/16- discussed with Dr. Cazares at that time- continuing hep drip/coumadin due to aortic mechanical valve - INR 2.47 today - target 2.5 - 3.5 (2) Atrial flutter Status: Chronic Problem Text: on beta blockade - rate controlled no role for telemetry at this point (3) Diabetes Status: Chronic Problem Text: on insulin sliding scale back on consistent carb diet (4) Aortic valve prosthesis present Status: Chronic Problem Text: has mechanical prosthetic valve, heparin drip resumed - INR almost therapeutic resume home dosage coumadin (5) CKD (chronic kidney disease), stage III Status: Chronic (6) BEENA (obstructive sleep apnea) Status: Chronic Problem Text: suspected, continue continuos pulse ox in setting of post operative care Plan/VTE VTE Prophylaxis Ordered?: Yes (heparin drip/coumadin) Plan Diet: Continue Current Activity: Continue Current Pt and Family Services: Home Care Diagnostics: Repeat Labs in AM Anticipated Discharge: Home With Services Waiting for wound vac. Heparin drip, INR almost therapeutic, resumed home dosage coumadin Anticipating discharge home with IV antibiotics (already set up) Sunday10/23/16 [facility] Vital Signs Date Time Temp Pulse Resp B/P (MAP) Pulse Ox O2 Delivery O2 Flow Rate FiO2 10/20/16 06:33 102 129/80 10/20/16 06:00 98.2 11 99 Nasal Cannula 2.0 I&O- Last 24 Hours up to 6 AM 10/20/16 06:00 Intake Total 1490 ml Output Total 3550 ml Balance -2060 ml Laboratory Data 24H LABS Laboratory Tests 2 10/19/16 11:51: Bedside Glucose (Misc Panel) 420H 10/19/16 16:36: Bedside Glucose (Misc Panel) 319H 10/19/16 21:11: Activated Partial Thromboplast Time 44.7H 10/19/16 21:13: Bedside Glucose (Misc Panel) 262H 10/20/16 02:50: Activated Partial Thromboplast Time 78.2H 10/20/16 06:27: Activated Partial Thromboplast Time 88.1H, Prothrombin Time 26.8H, Prothromb Time International Ratio 2.47 10/20/16 07:52: Bedside Glucose (Misc Panel) 347H Microbiology Microbiology 10/12/16 Blood Culture - Final, Complete NO GROWTH AFTER 5 DAYS 10/12/16 Blood Culture - Final, Complete NO GROWTH AFTER 5 DAYS 10/18/16 Stool Occult Blood (JACOBY) - Final, Complete 10/17/16 Stool Occult Blood (JACOBY) - Final, Complete 10/16/16 Stool Occult Blood (JACOBY) - Final, Complete 10/13/16 Wound Culture - Final, Complete Staphylococcus Epidermidis Yeast Like Organism 10/13/16 Anaerobic Culture - Final, Complete ADILIA FALCON MD October 20, 2016 08:04
--- NOTE | 2016-10-20 08:09 | RO ---
DATE OF PROCEDURE: 10/19/2016 PREOPERATIVE DIAGNOSIS: Stage IV wound status post resection of osteomyelitis type 2 calcaneal corticotomy left foot. POSTOPERATIVE DIAGNOSIS: Stage IV wound status post resection of osteomyelitis type 2 calcaneal corticotomy left foot. PROCEDURE: Incisional debridement through muscle left foot. SURGEON: Eron Cobb DPM COW TESTER: None. ANESTHESIA: Local monitored anesthesia care (MAC). IRRIGATION: 3 liters low pressure pulse lavage system of dilute gentamicin solution. IMPLANTS UTILIZED: Fifteen 5 mm Tobramycin beads. ESTIMATED BLOOD LOSS: 200 mL. HEMOSTASIS: None. DESCRIPTION OF OPERATION: On 10/19/2016, this 66-year-old white male was taken from his hospital room to the operating room and placed on the operating table in the prone position. Following the induction of IV sedation and local and regional anesthesia, the left lower extremity was prepped and draped in the usual aseptic manner. Attention was directed to the patient's left foot. There was noted to be an ulceration on the plantar surface of the foot measuring 4 cm x 3.5 cm x 2.1 cm in depth with an 8 cm dorsal incision. There was some gapping in the wound site with some devitalized tissue in the wound extending down to the bone. At this time, utilizing sharp dissection with a scalpel the wound margins were debrided down to the level of bone through the muscular tissue. Utilizing curettes, the surrounding area was additionally debrided. The bone was then curetted to promote good vascular bleeding. The bone was solid throughout its entire length. Using a low pressure pulse lavage system, 3 liters of dilute Tobramycin was flushed through the wound. Using electrocautery, all bleeders as identified were electrocoagulated. Fifteen 5 mm beads were then placed into the wound and the superior wound was closed with #3-0 nylon in a simple interrupted fashion with minimal tension. The plantar ulcer then had a wound Vac applied with black foam, window pane technique with a dorsal bridge onto the dorsal aspect of the foot. Pressure was set at 125 mmHg high intensity continuous pressure, black foam dressing. The wound Vac was noted to be operating satisfactorily with no leaks detected. A compressive dressing was then applied, followed by a posterior splint. The patient having apparently tolerated the surgical procedure well was taken from the operating room (OR) to the recovery room with vital signs stable. The patient was then restarted on his heparin drip and will continue with Zosyn and vancomycin antibiotic coverage. This will be coordinated from the infectious disease department. AUBREY
[2016-10-20] MEDS: MULTIVITAMINS/MINERALS THERAP 1 TAB PO SCH (08:27)
[2016-10-20] MEDS: HumaLOG INSULIN (NovoLOG) PER UNIT SC SCH ×4 (08:27→20:43)
[2016-10-20] MEDS: GABAPENTIN 300 MG CAP PO SCH ×3 (08:27→20:43)
[2016-10-20] MEDS: ALLOPURINOL 100 MG TAB PO SCH (08:27)
[2016-10-20] MEDS: LEVEMIR (INSULIN DETEMIR) 1 UNITS/0.01ML SC SCH ×2 (08:27→20:44)
[2016-10-20] MEDS: FUROSEMIDE 80 MG TAB PO SCH (08:27)
[2016-10-20] MEDS: VANCOMYCIN HCL 1,000 MG, VIAL MATE ADAPTER 1 EACH in D5W 250 ML IV SCH ×2 (09:38→21:30)
[2016-10-20 14:00] VITALS: BP 134/69
[2016-10-20] MEDS: HEPARIN DRIP 25,000 UNITS in APPROPRIATE DILUENT 1 EA IV SCH (14:24)
--- NOTE | 2016-10-20 16:20 | IPN ---
DATE: 10/20/2016 Mr. Erazo went to the operating room (OR) yesterday. Wound vacuum-assisted closure (VAC) was placed, and he had low-pressure pulse lavage with dilute gentamicin done. There was noted some devitalized tissue in the wound, extending down to the bone. That was debrided. Tobramycin beads were placed. The patient is doing well today. He has no nausea, vomiting, diarrhea, abdominal pain, fever, or chills. VITAL SIGNS: Stable. Temperature is 98.2, pulse 101, respirations 18, blood pressure 129/80, oxygen saturation 99% on 2 liters nasal cannula. HEART: Normal S1, S2 with a click and systolic ejection murmur unchanged. LUNGS: Clear. ABDOMEN: Morbidly obese, soft, nontender. Right below-knee amputation (BKA) well healed. Left leg with a wound VAC was not changed. IMPRESSION: Acute osteomyelitis of the left foot status post calcanectomy done by Dr. Cobb on October [address] Cobb done on October 19 for more debridement and wound VAC placement. The patient has done well. PLAN: Hopefully will be able to discharge the patient back home on Sunday or Sunday, once we have the wound VAC available. His prescription for vancomycin and Zosyn will be written today and sent to [facility]. His current dose of vancomycin is 1 gram every 12 hours. His vancomycin trough was only 6.5 at 1 gram every 24 hours. He had previous vancomycin toxicity when he was an outpatient last week, and that had to be on hold. Will have to monitor closely, as his creatinine is 1.7. I have called [facility] as well to discuss the case.
[2016-10-20] MEDS ORDERED: WARFARIN SOD 10 MG TAB PO SCH (17:00)
[2016-10-20] MEDS: FUROSEMIDE 40 MG TAB PO SCH (17:22)
[2016-10-20] MEDS: WARFARIN SOD 4 MG TAB PO SCH (18:23)
[2016-10-20] MEDS: ROSUVASTATIN 10 MG TAB (CRESTOR) PO SCH (20:43)
[2016-10-20] MEDS: NYSTATIN 100,000 UNITS/GM TOPICAL PWD 15 GM TOP SCH (20:45)
[2016-10-20 22:00] VITALS: BP 121/57
[2016-10-21] MEDS: PIPERACILLIN/TAZOBACTAM SOD 3.375 GM in D5W MINI-BAG PLUS 50 ML IV SCH ×4 (01:56→20:51)
[2016-10-21] MEDS: HEPARIN DRIP 25,000 UNITS in APPROPRIATE DILUENT 1 EA IV SCH ×2 (04:39→21:13)
[2016-10-21 06:00] VITALS: BP 124/75
[2016-10-21] MEDS: SODIUM CHLORIDE 0.9% INJ 10 ML SYR IV SCH ×2 (06:09→18:00)
[2016-10-21] MEDS: METOPROLOL TART 25 MG TABLET PO SCH ×3 (06:09→18:30)
[2016-10-21 06:27] LABS: BASO % 1.3 % (0.0-1.0); EOS # 0.2 K/mm3 (0.0-0.50); EOS % 5.5 % (0.0-3.0); LARGE UNSTAINED CELL # 0.1 K/mm3 (0.0-0.4); LARGE UNSTAINED CELL % 2.6 % (0.0-4.0); LYMPH # 1.2 K/mm3 (1.5-4.5); LYMPH % 26.9 % (24.0-44.0); MEAN CORPUSCULAR HEMOGLOBIN 29.1 pg (27.0-33.0); MEAN CORPUSCULAR HGB CONC 31.4 g/dl (32.0-36.5); MEAN CORPUSCULAR VOLUME 92.5 fl (80.0-96.0); MONO # 0.2 K/mm3 (0.0-0.8); NEUTROPHILS # 2.3 K/mm3 (1.8-7.7); NEUTROPHILS % 57.6 % (36.0-66.0); PLATELET COUNT, AUTOMATED 252 k/mm3 (150-450); RED CELL DISTRIBUTION WIDTH 15.3 % (11.5-14.5)
[2016-10-21 06:33] LABS: INR 2.3
[2016-10-21 06:51] LABS: CALCIUM LEVEL 8.5 MG/DL (8.8-10.2); CREATININE FOR GFR 1.81 MG/DL (0.70-1.30); GLOMERULAR FILTRATION RATE 40.1 (>49); POTASSIUM SERUM 3.7 MEQ/L (3.5-5.1)
[2016-10-21] MEDS: HumaLOG INSULIN (NovoLOG) PER UNIT SC SCH ×4 (08:40→21:43)
[2016-10-21] MEDS: VANCOMYCIN HCL 1,000 MG, VIAL MATE ADAPTER 1 EACH in D5W 250 ML IV SCH ×2 (09:55→21:43)
[2016-10-21] MEDS: ALLOPURINOL 100 MG TAB PO SCH (10:50)
[2016-10-21] MEDS: LEVEMIR (INSULIN DETEMIR) 1 UNITS/0.01ML SC SCH ×2 (10:50→21:42)
[2016-10-21] MEDS: GABAPENTIN 300 MG CAP PO SCH ×3 (10:51→20:57)
[2016-10-21] MEDS: FUROSEMIDE 80 MG TAB PO SCH (10:51)
[2016-10-21] MEDS: MULTIVITAMINS/MINERALS THERAP 1 TAB PO SCH (10:52)
[2016-10-21] MEDS: NYSTATIN 100,000 UNITS/GM TOPICAL PWD 15 GM TOP SCH ×2 (10:52→21:43)
--- NOTE | 2016-10-21 11:11 | IPNPDOC ---
Subjective Date Seen The patient was seen on 10/21/16. Subjective Chief Complaint/HPI The patient is a 66-year-old male admitted with a reason for visit of Osteomyelitis Of Foot, Left, Acute. General: Denies: ROS Unobtainable, Chills, Night Sweats, Fatigue, Malaise, Normal Appetite, Other Symptoms Constitutional: Denies: Chills, Fever, Malaise, Night Sweats, Weakness, Fatigue , Weight Loss, Lethargy, Other Eyes: Denies: Pain, Vision change, Conjunctivae inflammation, Eyelid inflammation, Redness, Other ENT: Denies: Head Aches, Ear Pain, Dysphagia, Sinus Congestion, Post Nasal Drip , Sore Throat, Epistaxis, Other Symptoms Skin: Denies: Rash, Lesions, Jaundice, Bruising, Itching, Dry, Breakdown, Nail Changes, Other Pulmonary: Denies: Dyspnea, Cough, Pleuritic Chest Pain, Other Symptoms Cardiovascular: Denies: Chest Pain, Palpitations, Orthopnea, Paroxysmal Noc. Dyspnea, Edema, Lt Headedness, Other Symptoms Gastrointestinal: Denies: Nausea, Vomiting, Abdominal Pain, Diarrhea, Constipation, Melena, Hematochezia, Other Symptoms Genitourinary: Denies: Dysuria, Frequency, Incontinence, Hematuria, Retention, Other Symptoms Musculoskeletal: Reports: Foot Pain Objective Physical Examination General Exam: Positive: Alert, Cooperative, No Acute Distress Eye Exam: Positive: PERRLA, Conjunctiva & lids normal, EOMI, Negative: Sclera icteric ENT Exam: Positive: Atraumatic, Mucous membr. moist/pink Neck Exam: Positive: Supple Chest Exam: Positive: Clear to auscultation, Normal air movement, Negative: Rales, Rhonchi, Wheezing Heart Exam: Positive: Rate Normal, Regular Rhythm, Other (systolic click) Abdomen Exam: Positive: Normal bowel sounds, Soft, Negative: Tenderness Extremity Exam: Positive: Edema, Other (left lower extremity dressed in place with wound vac draining serosanguinous fluid, right BKA) Psych Exam: Positive: Oriented x 3 Assessment /Plan Problems (1) Osteomyelitis of foot, left, acute Status: Acute Problem Specific Plan: Consult Specialist Problem Text: POD#2 for incisional debridement to bone, and closure of posterior wound waiting for home wound vac Seen by podiatry and infectious disease Continue antibiotics - zosyn , vanco Deep tissue cx shows fungus/staph- followed by ID Had bleeding from surgical site 10/14/16- discussed with Dr. Cazares at that time- continuing hep drip/coumadin due to aortic mechanical valve - INR 2.47 today - target 2.5 - 3.5 (2) Atrial flutter Status: Chronic Problem Text: on beta blockade - rate controlled no role for telemetry at this point (3) Diabetes Status: Chronic Problem Text: on insulin sliding scale back on consistent carb diet (4) Aortic valve prosthesis present Status: Chronic Problem Text: has mechanical prosthetic valve, heparin drip resumed - INR still subtherapeutic - missed dose on day of surgery resume home dosage coumadin (5) CKD (chronic kidney disease), stage III Status: Chronic (6) BEENA (obstructive sleep apnea) Status: Chronic Problem Text: suspected, continue continuos pulse ox in setting of post operative care Plan/VTE VTE Prophylaxis Ordered?: Yes (heparin drip/coumadin) Plan Diet: Continue Current Activity: Continue Current Pt and Family Services: Home Care Diagnostics: Repeat Labs in AM Anticipated Discharge: Home With Services VS, I&O, 24H, [facility] Vital Signs/I&O Vital Signs Date Time Temp Pulse Resp B/P (MAP) Pulse Ox O2 Delivery O2 Flow Rate FiO2 10/21/16 10:51 98 116/55 10/21/16 10:26 98 Room Air 10/21/16 06:00 97.9 20 2.0 I&O- Last 24 Hours up to 6 AM 10/21/16 06:00 Intake Total 2417 ml Output Total 3900 ml Balance -1483 ml Laboratory Data 24H LABS Laboratory Tests 2 10/20/16 11:58: Bedside Glucose (Misc Panel) 375H 10/20/16 16:56: Bedside Glucose (Misc Panel) 429H 10/20/16 19:59: Vancomycin Level Trough 13.6 10/20/16 20:37: Bedside Glucose (Misc Panel) 455H 10/21/16 05:59: White Blood Count 4.0, Red Blood Count 2.83L, Hemoglobin 8.2L, Hematocrit 26.2L , Mean Corpuscular Volume 92.5, Mean Corpuscular Hemoglobin 29.1, Mean Corpuscular Hemoglobin Concent 31.4L, Red Cell Distribution Width 15.3H, Platelet Count 252, Neutrophils (%) (Auto) 57.6, Lymphocytes (%) (Auto) 26.9, Monocytes (%) (Auto) 6.0H, Eosinophils (%) (Auto) 5.5H, Basophils (%) (Auto) 1.3H, Neutrophils # (Auto) 2.3, Lymphocytes # (Auto) 1.2L, Monocytes # (Auto) 0.2, Eosinophils # (Auto) 0.2, Basophils # (Auto) 0.0, Large Unclassified Cells % 2.6, Large Unclassified Cells # 0.1, Prothrombin Time 25.4H, Prothromb Time International Ratio 2.30, Activated Partial Thromboplast Time 106.0H, Anion Gap 7L, Glomerular Filtration Rate 40.1L, Blood Urea Nitrogen 22H, Creatinine 1.81H , Sodium Level 137, Potassium Level 3.7, Chloride Level 101, Carbon Dioxide Level 29, Calcium Level 8.5L CBC/BMP Laboratory Tests 10/21/16 05:59 Red Blood Count 2.83 L, Mean Corpuscular Volume 92.5, Mean Corpuscular Hemoglobin 29.1, Mean Corpuscular Hemoglobin Concent 31.4 L, Red Cell Distribution Width 15.3 H, Neutrophils (%) (Auto) 57.6, Lymphocytes (%) (Auto) 26.9, Monocytes (%) (Auto) 6.0 H, Eosinophils (%) (Auto) 5.5 H, Basophils (%) ( Auto) 1.3 H, Neutrophils # (Auto) 2.3, Lymphocytes # (Auto) 1.2 L, Monocytes # ( Auto) 0.2, Eosinophils # (Auto) 0.2, Basophils # (Auto) 0.0, Calcium Level 8.5 L Microbiology Microbiology 10/12/16 Blood Culture - Final, Complete NO GROWTH AFTER 5 DAYS 10/12/16 Blood Culture - Final, Complete NO GROWTH AFTER 5 DAYS 10/18/16 Stool Occult Blood (JACOBY) - Final, Complete 10/17/16 Stool Occult Blood (JACOBY) - Final, Complete 10/16/16 Stool Occult Blood (JACOBY) - Final, Complete 10/13/16 Wound Culture - Final, Complete Staphylococcus Epidermidis Yeast Like Organism 10/13/16 Anaerobic Culture - Final, Complete ADILIA FALCON MD October 21, 2016 11:11
[2016-10-21 11:16] VITALS: BP 116/55
[2016-10-21 13:30] VITALS: BP 128/67
[2016-10-21] MEDS ORDERED: WARFARIN SOD 2 MG TAB PO ONE (17:00)
[2016-10-21] MEDS: WARFARIN SOD 4 MG TAB PO SCH (18:29)
[2016-10-21] MEDS: FUROSEMIDE 40 MG TAB PO SCH (18:29)
[2016-10-21] MEDS: ROSUVASTATIN 10 MG TAB (CRESTOR) PO SCH (20:58)
[2016-10-21 22:00] VITALS: BP 131/69
[2016-10-22] MEDS: METOPROLOL TART 25 MG TABLET PO SCH ×4 (01:21→17:34)
[2016-10-22] MEDS: PIPERACILLIN/TAZOBACTAM SOD 3.375 GM in D5W MINI-BAG PLUS 50 ML IV SCH ×4 (02:38→20:38)
[2016-10-22 03:15] LABS: BASO % 1.2 % (0.0-1.0); EOS # 0.2 K/mm3 (0.0-0.50); EOS % 5.2 % (0.0-3.0); LARGE UNSTAINED CELL # 0.1 K/mm3 (0.0-0.4); LARGE UNSTAINED CELL % 3.4 % (0.0-4.0); LYMPH # 1.1 K/mm3 (1.5-4.5); LYMPH % 25.9 % (24.0-44.0); MEAN CORPUSCULAR HEMOGLOBIN 29.9 pg (27.0-33.0); MEAN CORPUSCULAR HGB CONC 31.5 g/dl (32.0-36.5); MEAN CORPUSCULAR VOLUME 95.1 fl (80.0-96.0); MONO # 0.3 K/mm3 (0.0-0.8); MONO % 5.9 % (0.0-5.0); NEUTROPHILS # 2.4 K/mm3 (1.8-7.7); NEUTROPHILS % 58.4 % (36.0-66.0); PLATELET COUNT, AUTOMATED 270 k/mm3 (150-450); RED CELL DISTRIBUTION WIDTH 15.3 % (11.5-14.5); WHITE BLOOD COUNT 4.2 K/mm3 (4.0-10.0)
[2016-10-22 03:23] LABS: CALCIUM LEVEL 7.9 MG/DL (8.8-10.2); CREATININE FOR GFR 1.98 MG/DL (0.70-1.30); GLOMERULAR FILTRATION RATE 36.2 (>49); INR 2.11; POTASSIUM SERUM 3.8 MEQ/L (3.5-5.1)
[2016-10-22] MEDS: SODIUM CHLORIDE 0.9% INJ 10 ML SYR IV SCH ×2 (05:29→18:00)
[2016-10-22 06:00] VITALS: BP 113/78
--- NOTE | 2016-10-22 08:13 | IPNPDOC ---
Subjective Date Seen The patient was seen on 10/22/16. Subjective Chief Complaint/HPI The patient is a 66-year-old male admitted with a reason for visit of Osteomyelitis Of Foot, Left, Acute. General: Denies: ROS Unobtainable, Chills, Night Sweats, Fatigue, Malaise, Normal Appetite, Other Symptoms Constitutional: Denies: Chills, Fever, Malaise, Night Sweats, Weakness, Fatigue , Weight Loss, Lethargy, Other Eyes: Denies: Pain, Vision change, Conjunctivae inflammation, Eyelid inflammation, Redness, Other ENT: Denies: Head Aches, Ear Pain, Dysphagia, Sinus Congestion, Post Nasal Drip , Sore Throat, Epistaxis, Other Symptoms Skin: Denies: Rash, Lesions, Jaundice, Bruising, Itching, Dry, Breakdown, Nail Changes, Other Pulmonary: Denies: Dyspnea, Cough, Pleuritic Chest Pain, Other Symptoms Cardiovascular: Denies: Chest Pain, Palpitations, Orthopnea, Paroxysmal Noc. Dyspnea, Edema, Lt Headedness, Other Symptoms Gastrointestinal: Denies: Nausea, Vomiting, Abdominal Pain, Diarrhea, Constipation, Melena, Hematochezia, Other Symptoms Genitourinary: Denies: Dysuria, Frequency, Incontinence, Hematuria, Retention, Other Symptoms Objective Physical Examination General Exam: Positive: Alert, Cooperative, No Acute Distress Eye Exam: Positive: PERRLA, Conjunctiva & lids normal, EOMI, Negative: Sclera icteric ENT Exam: Positive: Atraumatic, Mucous membr. moist/pink Neck Exam: Positive: Supple Chest Exam: Positive: Clear to auscultation, Normal air movement, Negative: Rales, Rhonchi, Wheezing Heart Exam: Positive: Rate Normal, Regular Rhythm, Other (systolic click) Abdomen Exam: Positive: Normal bowel sounds, Soft, Negative: Tenderness Extremity Exam: Positive: Edema, Other (left lower extremity dressed in place with wound vac draining serosanguinous fluid, right BKA) Psych Exam: Positive: Oriented x 3 Assessment /Plan Problems (1) Osteomyelitis of foot, left, acute Status: Acute Problem Specific Plan: Consult Specialist Problem Text: POD#3 for incisional debridement to bone, and closure of posterior wound waiting for home wound vac Seen by podiatry and infectious disease Continue antibiotics - zosyn , vanco Deep tissue cx shows fungus/staph- followed by ID Had bleeding from surgical site 10/14/16- discussed with Dr. Cazares at that time- continuing hep drip/coumadin due to aortic mechanical valve - INR 2.1 today - target 2.5 - 3.5 (2) Atrial flutter Status: Chronic Problem Text: on beta blockade - rate controlled (3) Diabetes Status: Chronic Problem Text: uncontrolled - basal insulin doubled continue insulin sliding scale consistent carb diet (4) Aortic valve prosthesis present Status: Chronic Problem Text: has mechanical prosthetic valve, heparin drip resumed - INR still subtherapeutic - missed dose on day of surgery (5) CKD (chronic kidney disease), stage III Status: Chronic (6) BEENA (obstructive sleep apnea) Status: Chronic Problem Text: suspected, continue continuos pulse ox in setting of post operative care Plan/VTE VTE Prophylaxis Ordered?: Yes (heparin drip/coumadin) Plan Diet: Continue Current Activity: Continue Current Therapy: PT Pt and Family Services: Home Care Diagnostics: Repeat Labs in AM Anticipated Discharge: Home With Services VS, I&O, 24H, [facility] Vital Signs/I&O Vital Signs Date Time Temp Pulse Resp B/P (MAP) Pulse Ox O2 Delivery O2 Flow Rate FiO2 10/22/16 06:00 97.5 83 19 113/78 (90) 99 Room Air 10/21/16 06:00 2.0 I&O- Last 24 Hours up to 6 AM 10/22/16 06:00 Intake Total 2450 ml Output Total 3300 ml Balance -850 ml Laboratory Data 24H LABS Laboratory Tests 2 10/21/16 11:47: Bedside Glucose (Misc Panel) 471H 10/21/16 16:43: Bedside Glucose (Misc Panel) 476H 10/21/16 20:42: Bedside Glucose Confirm (Misc) 485*H 10/22/16 02:56: White Blood Count 4.2, Red Blood Count 2.76L, Hemoglobin 8.3L, Hematocrit 26.2L , Mean Corpuscular Volume 95.1, Mean Corpuscular Hemoglobin 29.9, Mean Corpuscular Hemoglobin Concent 31.5L, Red Cell Distribution Width 15.3H, Platelet Count 270, Neutrophils (%) (Auto) 58.4, Lymphocytes (%) (Auto) 25.9, Monocytes (%) (Auto) 5.9H, Eosinophils (%) (Auto) 5.2H, Basophils (%) (Auto) 1.2H, Neutrophils # (Auto) 2.4, Lymphocytes # (Auto) 1.1L, Monocytes # (Auto) 0.3, Eosinophils # (Auto) 0.2, Basophils # (Auto) 0.0, Large Unclassified Cells % 3.4, Large Unclassified Cells # 0.1, Prothrombin Time 23.7H, Prothromb Time International Ratio 2.11, Activated Partial Thromboplast Time 65.9H, Anion Gap 8 , Glomerular Filtration Rate 36.2L, Blood Urea Nitrogen 24H, Creatinine 1.98H, Sodium Level 138, Potassium Level 3.8, Chloride Level 100, Carbon Dioxide Level 30, Calcium Level 7.9L CBC/BMP Laboratory Tests 10/22/16 02:56 Red Blood Count 2.76 L, Mean Corpuscular Volume 95.1, Mean Corpuscular Hemoglobin 29.9, Mean Corpuscular Hemoglobin Concent 31.5 L, Red Cell Distribution Width 15.3 H, Neutrophils (%) (Auto) 58.4, Lymphocytes (%) (Auto) 25.9, Monocytes (%) (Auto) 5.9 H, Eosinophils (%) (Auto) 5.2 H, Basophils (%) ( Auto) 1.2 H, Neutrophils # (Auto) 2.4, Lymphocytes # (Auto) 1.1 L, Monocytes # ( Auto) 0.3, Eosinophils # (Auto) 0.2, Basophils # (Auto) 0.0, Calcium Level 7.9 L Microbiology Microbiology 10/12/16 Blood Culture - Final, Complete NO GROWTH AFTER 5 DAYS 10/12/16 Blood Culture - Final, Complete NO GROWTH AFTER 5 DAYS 10/18/16 Stool Occult Blood (JACOBY) - Final, Complete 10/17/16 Stool Occult Blood (JACOBY) - Final, Complete 10/16/16 Stool Occult Blood (JACOBY) - Final, Complete 10/13/16 Wound Culture - Final, Complete Staphylococcus Epidermidis Yeast Like Organism 10/13/16 Anaerobic Culture - Final, Complete ADILIA FALCON MD October 22, 2016 08:13
[2016-10-22] MEDS: GABAPENTIN 300 MG CAP PO SCH ×3 (08:20→20:38)
[2016-10-22] MEDS: MULTIVITAMINS/MINERALS THERAP 1 TAB PO SCH (08:20)
[2016-10-22] MEDS: ALLOPURINOL 100 MG TAB PO SCH (08:20)
[2016-10-22] MEDS: FUROSEMIDE 80 MG TAB PO SCH (08:21)
[2016-10-22] MEDS: HumaLOG INSULIN (NovoLOG) PER UNIT SC SCH ×4 (08:22→21:00)
[2016-10-22] MEDS: LEVEMIR (INSULIN DETEMIR) 1 UNITS/0.01ML SC SCH ×2 (08:22→22:27)
[2016-10-22] MEDS: NYSTATIN 100,000 UNITS/GM TOPICAL PWD 15 GM TOP SCH ×2 (08:23→20:39)
[2016-10-22 09:39] LABS: INR 2.13
[2016-10-22] MEDS: VANCOMYCIN HCL 1,000 MG, VIAL MATE ADAPTER 1 EACH in D5W 250 ML IV SCH (09:56)
[2016-10-22] MEDS: HEPARIN DRIP 25,000 UNITS in APPROPRIATE DILUENT 1 EA IV SCH (13:52)
[2016-10-22 14:00] VITALS: BP 120/60
[2016-10-22] MEDS: WARFARIN SOD 10 MG TAB PO SCH (17:34)
[2016-10-22] MEDS: FUROSEMIDE 40 MG TAB PO SCH (17:35)
[2016-10-22] MEDS: ROSUVASTATIN 10 MG TAB (CRESTOR) PO SCH (20:38)
[2016-10-22 22:00] VITALS: BP 110/60
[2016-10-23] MEDS: METOPROLOL TART 25 MG TABLET PO SCH ×4 (00:10→17:56)
[2016-10-23] MEDS: VANCOMYCIN HCL 1,000 MG, VIAL MATE ADAPTER 1 EACH in D5W 250 ML IV SCH ×2 (01:09→21:48)
[2016-10-23] MEDS: PIPERACILLIN/TAZOBACTAM SOD 3.375 GM in D5W MINI-BAG PLUS 50 ML IV SCH ×4 (02:23→20:50)
--- NOTE | 2016-10-23 03:20 | PHACANCOPD ---
PHARMACY VANCOMYCIN DOSING Pt Demographics Demographics Patient Age:66 , Weight:155.000 , Gender: male Adjusted Body Weight Date: 10/19/16, Adjusted Body Weight: [108.6] Kg Vancomycin Vancomycin indication: Osteomyelitis Vancomycin Target Ranges: 15-20 mcg/ml Vancomycin Load Y/N: Yes Load Dose Date Time Vancomycin Load Dose: 1500mg Date: 10/16/16 Time: 1700 Vancomycin Dose Date: 10/19/16. Current Vancomycin Dose: [1g IV Q24H] Intermittent Dosing?: No Labs Micro Microbiology 10/18/16 Stool Occult Blood (JACOBY) - Final, Complete 10/17/16 Stool Occult Blood (JACOBY) - Final, Complete 10/16/16 Stool Occult Blood (JACOBY) - Final, Complete 10/13/16 Wound Culture - Final, Complete Staphylococcus Epidermidis Yeast Like Organism 10/13/16 Anaerobic Culture - Final, Complete Creatinine Clearance Date:10/19/16. Estimated Creatinine Clearance: [~45ml/min]. Pending Labs Vancomycin trough scheduled 10/20/16 @1999 Assessment and Plan Maintaining Current Dose?: No Reason for dose change: Trough too high Pharmacist Note Pharmacist Note Date: 10/23/16. Pharmacist note:Vancomycin trough drawn this evening reported as 23,9: patient SCR has been increasing slowly reporting as 1.98 10/22:CRCL=56.4( calculated)Reactive to vancomycin accumulation-will adjust regimen to Vanco 1 GM IV q18H beginning with 10/23 0100 dose: will continue to follow levels and labs Date: 10/19/16. Pharmacist note: Trough today resulted at 6.5mcg/ml. Scr and output remain stable. I will decrease the frequency from Q24H to Q12H, and schedule a follow-up trough level for 10/20/16 @1999. We will continue to monitor. FRANSISCA JIN PHARMACY October 23, 2016 03:20
[2016-10-23] MEDS: SODIUM CHLORIDE 0.9% INJ 10 ML SYR IV SCH ×2 (05:55→17:56)
[2016-10-23 06:00] VITALS: BP 127/77
[2016-10-23 06:27] LABS: EOS # 0.3 K/mm3 (0.0-0.50); EOS % 5.9 % (0.0-3.0); LARGE UNSTAINED CELL # 0.1 K/mm3 (0.0-0.4); LARGE UNSTAINED CELL % 2.6 % (0.0-4.0); LYMPH # 1.4 K/mm3 (1.5-4.5); LYMPH % 27.8 % (24.0-44.0); MEAN CORPUSCULAR HEMOGLOBIN 28.9 pg (27.0-33.0); MEAN CORPUSCULAR HGB CONC 30.9 g/dl (32.0-36.5); MEAN CORPUSCULAR VOLUME 93.6 fl (80.0-96.0); MONO # 0.3 K/mm3 (0.0-0.8); MONO % 6.2 % (0.0-5.0); NEUTROPHILS # 2.8 K/mm3 (1.8-7.7); NEUTROPHILS % 56.5 % (36.0-66.0); PLATELET COUNT, AUTOMATED 284 k/mm3 (150-450); RED CELL DISTRIBUTION WIDTH 15.4 % (11.5-14.5)
[2016-10-23 06:33] LABS: INR 2.23
[2016-10-23 06:40] LABS: CALCIUM LEVEL 8.6 MG/DL (8.8-10.2); CREATININE FOR GFR 1.96 MG/DL (0.70-1.30); GLOMERULAR FILTRATION RATE 36.6 (>49); POTASSIUM SERUM 3.7 MEQ/L (3.5-5.1)
--- NOTE | 2016-10-23 08:09 | IPNPDOC ---
Subjective Date Seen The patient was seen on 10/23/16. Subjective Chief Complaint/HPI The patient is a 66-year-old male admitted with a reason for visit of Osteomyelitis Of Foot, Left, Acute. General: Denies: ROS Unobtainable, Chills, Night Sweats, Fatigue, Malaise, Normal Appetite, Other Symptoms Constitutional: Denies: Chills, Fever, Malaise, Night Sweats, Weakness, Fatigue , Weight Loss, Lethargy, Other Eyes: Denies: Pain, Vision change, Conjunctivae inflammation, Eyelid inflammation, Redness, Other ENT: Denies: Head Aches, Ear Pain, Dysphagia, Sinus Congestion, Post Nasal Drip , Sore Throat, Epistaxis, Other Symptoms Skin: Denies: Rash, Lesions, Jaundice, Bruising, Itching, Dry, Breakdown, Nail Changes, Other Pulmonary: Denies: Dyspnea, Cough, Pleuritic Chest Pain, Other Symptoms Cardiovascular: Denies: Chest Pain, Palpitations, Orthopnea, Paroxysmal Noc. Dyspnea, Edema, Lt Headedness, Other Symptoms Gastrointestinal: Denies: Nausea, Vomiting, Abdominal Pain, Diarrhea, Constipation, Melena, Hematochezia, Other Symptoms Genitourinary: Denies: Dysuria, Frequency, Incontinence, Hematuria, Retention, Other Symptoms Objective Physical Examination General Exam: Positive: Alert, Cooperative, No Acute Distress Eye Exam: Positive: PERRLA, Conjunctiva & lids normal, EOMI, Negative: Sclera icteric ENT Exam: Positive: Atraumatic, Mucous membr. moist/pink Neck Exam: Positive: Supple Chest Exam: Positive: Clear to auscultation, Normal air movement, Negative: Rales, Rhonchi, Wheezing Heart Exam: Positive: Rate Normal, Regular Rhythm, Other (systolic click) Abdomen Exam: Positive: Normal bowel sounds, Soft, Negative: Tenderness Extremity Exam: Positive: Other (left lower extremity dressings changed, wound vac in place; right BKA) Psych Exam: Positive: Oriented x 3 Assessment /Plan Problems (1) Osteomyelitis of foot, left, acute Status: Acute Problem Specific Plan: Consult Specialist Problem Text: POD#4 for incisional debridement to bone, and closure of posterior wound waiting for home wound vac discussed with podiatry - assistance appreciated Deep tissue cx shows fungus/stap Continue antibiotics - zosyn , vanco - follow up with ID, assistance appreciated Had bleeding from surgical site 10/14/16- discussed with Dr. Cazares at that time- continuing hep drip/coumadin due to aortic mechanical valve - INR 2.1 today - target 2.5 - 3.5 (2) Atrial flutter Status: Chronic Problem Text: on beta blockade - rate controlled (3) Diabetes Status: Chronic Problem Text: uncontrolled - patient was taking 100units glargine qhs at home have adjusted inpatient insulin regimen consistent carb diet (4) Aortic valve prosthesis present Status: Chronic Problem Text: has mechanical prosthetic valve, heparin drip resumed - INR still subtherapeutic but imroving - missed dose on day of surgery (5) CKD (chronic kidney disease), stage III Status: Chronic (6) BEENA (obstructive sleep apnea) Status: Chronic Problem Text: suspected, continue continuos pulse ox in setting of post operative care Plan/VTE VTE Prophylaxis Ordered?: Yes (heparin drip/coumadin) Plan Diet: Continue Current Activity: Continue Current Therapy: PT Pt and Family Services: Home Care Diagnostics: Repeat Labs in AM Anticipated Discharge: Home With Services IV Karen Larkin - patient has services set up at home to continue iv abx waiting for home wound vac still pending therapeutic inr, target 2.5-3.5 VS, I&O, 24H, [facility] Vital Signs/I&O Vital Signs Date Time Temp Pulse Resp B/P (MAP) Pulse Ox O2 Delivery O2 Flow Rate FiO2 10/23/16 06:00 98.2 101 18 127/77 (94) 97 Room Air 10/21/16 06:00 2.0 I&O- Last 24 Hours up to 6 AM 10/23/16 05:59 Intake Total 2460 ml Output Total 3225 ml Balance -765 ml Laboratory Data 24H LABS Laboratory Tests 2 10/22/16 09:23: Prothrombin Time 23.9H, Prothromb Time International Ratio 2.13, Activated Partial Thromboplast Time 58.6H 10/22/16 11:16: Bedside Glucose (Misc Panel) 522*H 10/22/16 11:33: Bedside Glucose Confirm (Misc) 474*H 10/22/16 16:36: Bedside Glucose (Misc Panel) 505*H 10/22/16 17:41: Bedside Glucose Confirm (Misc) 495*H 10/22/16 20:34: Vancomycin Level Trough 20.3H 10/23/16 06:03: White Blood Count 5.0, Red Blood Count 2.97L, Hemoglobin 8.6L, Hematocrit 27.8L , Mean Corpuscular Volume 93.6, Mean Corpuscular Hemoglobin 28.9, Mean Corpuscular Hemoglobin Concent 30.9L, Red Cell Distribution Width 15.4H, Platelet Count 284, Neutrophils (%) (Auto) 56.5, Lymphocytes (%) (Auto) 27.8, Monocytes (%) (Auto) 6.2H, Eosinophils (%) (Auto) 5.9H, Basophils (%) (Auto) 1.0 , Neutrophils # (Auto) 2.8, Lymphocytes # (Auto) 1.4L, Monocytes # (Auto) 0.3, Eosinophils # (Auto) 0.3, Basophils # (Auto) 0.0, Large Unclassified Cells % 2.6 , Large Unclassified Cells # 0.1, Prothrombin Time 24.8H, Prothromb Time International Ratio 2.23, Anion Gap 8, Glomerular Filtration Rate 36.6L, Blood Urea Nitrogen 25H, Creatinine 1.96H, Sodium Level 135L, Potassium Level 3.7, Chloride Level 98, Carbon Dioxide Level 29, Calcium Level 8.6L CBC/BMP Laboratory Tests 10/23/16 06:03 Red Blood Count 2.97 L, Mean Corpuscular Volume 93.6, Mean Corpuscular Hemoglobin 28.9, Mean Corpuscular Hemoglobin Concent 30.9 L, Red Cell Distribution Width 15.4 H, Neutrophils (%) (Auto) 56.5, Lymphocytes (%) (Auto) 27.8, Monocytes (%) (Auto) 6.2 H, Eosinophils (%) (Auto) 5.9 H, Basophils (%) ( Auto) 1.0, Neutrophils # (Auto) 2.8, Lymphocytes # (Auto) 1.4 L, Monocytes # ( Auto) 0.3, Eosinophils # (Auto) 0.3, Basophils # (Auto) 0.0, Calcium Level 8.6 L Microbiology Microbiology 10/18/16 Stool Occult Blood (JACOBY) - Final, Complete 10/17/16 Stool Occult Blood (JACOBY) - Final, Complete 10/16/16 Stool Occult Blood (JACOBY) - Final, Complete 10/13/16 Wound Culture - Final, Complete Staphylococcus Epidermidis Yeast Like Organism 10/13/16 Anaerobic Culture - Final, Complete ADILIA FALCON MD October 23, 2016 08:09
[2016-10-23] MEDS: HumaLOG INSULIN (NovoLOG) PER UNIT SC SCH ×4 (08:44→20:51)
[2016-10-23] MEDS: FUROSEMIDE 80 MG TAB PO SCH (08:45)
[2016-10-23] MEDS: MULTIVITAMINS/MINERALS THERAP 1 TAB PO SCH (08:45)
[2016-10-23] MEDS: ALLOPURINOL 100 MG TAB PO SCH (08:45)
[2016-10-23] MEDS: LEVEMIR (INSULIN DETEMIR) 1 UNITS/0.01ML SC SCH ×2 (08:45→20:51)
[2016-10-23] MEDS: GABAPENTIN 300 MG CAP PO SCH ×3 (08:46→20:50)
[2016-10-23] MEDS: NYSTATIN 100,000 UNITS/GM TOPICAL PWD 15 GM TOP SCH ×2 (08:46→20:52)
[2016-10-23] MEDS: HEPARIN DRIP 25,000 UNITS in APPROPRIATE DILUENT 1 EA IV SCH (08:49)
[2016-10-23 12:48] VITALS: BP 117/66
[2016-10-23 14:00] VITALS: BP 114/59
[2016-10-23] MEDS: WARFARIN SOD 10 MG TAB PO SCH (16:45)
[2016-10-23] MEDS: FUROSEMIDE 40 MG TAB PO SCH (16:45)
[2016-10-23 17:57] VITALS: BP 128/59
[2016-10-23] MEDS: ROSUVASTATIN 10 MG TAB (CRESTOR) PO SCH (20:50)
[2016-10-23 22:00] VITALS: BP 116/70
[2016-10-24] MEDS: METOPROLOL TART 25 MG TABLET PO SCH ×4 (00:13→17:41)
[2016-10-24] MEDS: PIPERACILLIN/TAZOBACTAM SOD 3.375 GM in D5W MINI-BAG PLUS 50 ML IV SCH ×4 (02:04→20:14)
[2016-10-24 06:00] VITALS: BP 126/59
[2016-10-24] MEDS: SODIUM CHLORIDE 0.9% INJ 10 ML SYR IV SCH ×2 (06:00→17:42)
[2016-10-24 06:35] LABS: BASO # 0.1 K/mm3 (0.0-0.2); BASO % 1.2 % (0.0-1.0); EOS # 0.3 K/mm3 (0.0-0.50); EOS % 5.9 % (0.0-3.0); LARGE UNSTAINED CELL # 0.1 K/mm3 (0.0-0.4); LARGE UNSTAINED CELL % 2.3 % (0.0-4.0); LYMPH # 1.7 K/mm3 (1.5-4.5); MEAN CORPUSCULAR HEMOGLOBIN 28.3 pg (27.0-33.0); MEAN CORPUSCULAR HGB CONC 31.2 g/dl (32.0-36.5); MEAN CORPUSCULAR VOLUME 90.8 fl (80.0-96.0); MONO # 0.3 K/mm3 (0.0-0.8); MONO % 5.5 % (0.0-5.0); NEUTROPHILS # 3.1 K/mm3 (1.8-7.7); NEUTROPHILS % 56.2 % (36.0-66.0); PLATELET COUNT, AUTOMATED 311 k/mm3 (150-450); RED CELL DISTRIBUTION WIDTH 15.6 % (11.5-14.5); WHITE BLOOD COUNT 5.4 K/mm3 (4.0-10.0)
[2016-10-24 06:40] LABS: INR 2.42
[2016-10-24 06:46] LABS: CALCIUM LEVEL 8.7 MG/DL (8.8-10.2); CREATININE FOR GFR 1.85 MG/DL (0.70-1.30); GLOMERULAR FILTRATION RATE 39.1 (>49); POTASSIUM SERUM 3.7 MEQ/L (3.5-5.1)
[2016-10-24] MEDS: HEPARIN DRIP 25,000 UNITS in APPROPRIATE DILUENT 1 EA IV SCH (07:54)
[2016-10-24] MEDS: HumaLOG INSULIN (NovoLOG) PER UNIT SC SCH ×4 (08:14→21:05)
[2016-10-24] MEDS: MULTIVITAMINS/MINERALS THERAP 1 TAB PO SCH (08:15)
[2016-10-24] MEDS: FUROSEMIDE 80 MG TAB PO SCH (08:15)
[2016-10-24] MEDS: GABAPENTIN 300 MG CAP PO SCH ×3 (08:15→21:05)
[2016-10-24] MEDS: ALLOPURINOL 100 MG TAB PO SCH (08:15)
[2016-10-24] MEDS: NYSTATIN 100,000 UNITS/GM TOPICAL PWD 15 GM TOP SCH ×2 (08:15→21:05)
[2016-10-24] MEDS: VANCOMYCIN HCL 1,000 MG, VIAL MATE ADAPTER 1 EACH in D5W 250 ML IV SCH (12:26)
[2016-10-24 14:00] VITALS: BP 112/70
[2016-10-24] MEDS: FUROSEMIDE 40 MG TAB PO SCH (16:18)
[2016-10-24] MEDS: WARFARIN SOD 10 MG TAB PO SCH (16:19)
--- NOTE | 2016-10-24 18:37 | IPNPDOC ---
Subjective Date Seen The patient was seen on 10/24/16. Subjective Chief Complaint/HPI The patient is a 66-year-old male admitted with a reason for visit of Osteomyelitis Of Foot, Left, Acute. Events since last encounter Feeling well, slept well last night, no pain, tolerating diet, would like to go home Pulmonary: Denies: Dyspnea, Cough Cardiovascular: Denies: Chest Pain, Palpitations Gastrointestinal: Denies: Nausea, Vomiting, Abdominal Pain Objective Physical Examination General Exam: Positive: No Acute Distress Eye Exam: Negative: Sclera icteric Neck Exam: Positive: Supple Chest Exam: Positive: Clear to auscultation, Normal air movement, Negative: Rales, Rhonchi, Wheezing Heart Exam: Positive: Rate Normal, Regular Rhythm, Other (systolic click) Abdomen Exam: Positive: Normal bowel sounds, Soft, Negative: Tenderness Psych Exam: Positive: Oriented x 3 Assessment /Plan Problems (1) Osteomyelitis of foot, left, acute Status: Acute Problem Specific Plan: Consult Specialist Problem Text: Post operative incisional debridement to bone, and closure of posterior wound home wound vac available today discussed with podiatry - assistance appreciated Deep tissue cx shows fungus/stap Continue antibiotics - zosyn , vanco - follow up with ID, I d/w Dr. Teixeira Had bleeding from surgical site 10/14/16- discussed with Dr. Cazares at that time- continuing hep drip/coumadin due to aortic mechanical valve - INR therapeutic today - target 2.5 - 3.5- cross cover with heparin for 24 hours, possible dc tomorrow (2) Atrial flutter Status: Chronic Problem Text: on beta blockade - rate controlled (3) Diabetes Status: Chronic Problem Text: uncontrolled - patient was taking 100units glargine qhs at home have adjusted inpatient insulin regimen consistent carb diet (4) Aortic valve prosthesis present Status: Chronic Problem Text: has mechanical prosthetic valve, heparin drip resumed - INR still subtherapeutic but imroving - missed dose on day of surgery (5) CKD (chronic kidney disease), stage III Status: Chronic (6) BEENA (obstructive sleep apnea) Status: Chronic Problem Text: suspected, continue continuos pulse ox in setting of post operative care Plan/VTE VTE Prophylaxis Ordered?: Yes (heparin drip/coumadin) Plan Diet: Continue Current Activity: Continue Current Therapy: PT Pt and Family Services: Home Care Diagnostics: Repeat Labs in AM Anticipated Discharge: Home With Services VS, I&O, 24H, [place] Vital Signs/I&O Vital Signs Date Time Temp Pulse Resp B/P (MAP) Pulse Ox O2 Delivery O2 Flow Rate FiO2 10/24/16 18:26 Room Air 10/24/16 17:41 105 110/73 10/24/16 14:00 98.9 18 94 10/21/16 06:00 2.0 I&O- Last 24 Hours up to 6 AM 10/24/16 06:00 Intake Total 1960 ml Output Total 2925 ml Balance -965 ml Laboratory Data 24H LABS Laboratory Tests 2 10/23/16 20:26: Bedside Glucose (Misc Panel) 490H 10/24/16 06:02: White Blood Count 5.4, Red Blood Count 3.16L, Hemoglobin 9.0L, Hematocrit 28.7L , Mean Corpuscular Volume 90.8, Mean Corpuscular Hemoglobin 28.3, Mean Corpuscular Hemoglobin Concent 31.2L, Red Cell Distribution Width 15.6H, Platelet Count 311, Neutrophils (%) (Auto) 56.2, Lymphocytes (%) (Auto) 29.0, Monocytes (%) (Auto) 5.5H, Eosinophils (%) (Auto) 5.9H, Basophils (%) (Auto) 1.2H, Neutrophils # (Auto) 3.1, Lymphocytes # (Auto) 1.7, Monocytes # (Auto) 0.3 , Eosinophils # (Auto) 0.3, Basophils # (Auto) 0.1, Large Unclassified Cells % 2.3, Large Unclassified Cells # 0.1, Prothrombin Time 26.4H, Prothromb Time International Ratio 2.42, Activated Partial Thromboplast Time 71.7H, Anion Gap 10, Glomerular Filtration Rate 39.1L, Blood Urea Nitrogen 26H, Creatinine 1.85H , Sodium Level 137, Potassium Level 3.7, Chloride Level 99, Carbon Dioxide Level 28, Calcium Level 8.7L 10/24/16 11:32: Bedside Glucose (Misc Panel) 420H 10/24/16 16:28: Bedside Glucose (Misc Panel) 465H CBC/BMP Laboratory Tests 10/24/16 06:02 Red Blood Count 3.16 L, Mean Corpuscular Volume 90.8, Mean Corpuscular Hemoglobin 28.3, Mean Corpuscular Hemoglobin Concent 31.2 L, Red Cell Distribution Width 15.6 H, Neutrophils (%) (Auto) 56.2, Lymphocytes (%) (Auto) 29.0, Monocytes (%) (Auto) 5.5 H, Eosinophils (%) (Auto) 5.9 H, Basophils (%) ( Auto) 1.2 H, Neutrophils # (Auto) 3.1, Lymphocytes # (Auto) 1.7, Monocytes # ( Auto) 0.3, Eosinophils # (Auto) 0.3, Basophils # (Auto) 0.1, Calcium Level 8.7 L Microbiology Microbiology 10/23/16 Stool Occult Blood (JACOBY) - Final, Complete 10/18/16 Stool Occult Blood (JACOBY) - Final, Complete 10/17/16 Stool Occult Blood (JACOBY) - Final, Complete 10/16/16 Stool Occult Blood (JACOBY) - Final, Complete AUTUMN RIVERA MD October 24, 2016 18:37
[2016-10-24] MEDS: ROSUVASTATIN 10 MG TAB (CRESTOR) PO SCH (21:04)
[2016-10-24] MEDS: LEVEMIR (INSULIN DETEMIR) 1 UNITS/0.01ML SC SCH (21:06)
[2016-10-24 22:00] VITALS: BP 113/71
[2016-10-25] MEDS: METOPROLOL TART 25 MG TABLET PO SCH ×3 (00:32→12:40)
[2016-10-25] MEDS: PIPERACILLIN/TAZOBACTAM SOD 3.375 GM in D5W MINI-BAG PLUS 50 ML IV SCH ×3 (02:10→12:40)
[2016-10-25] MEDS: SODIUM CHLORIDE 0.9% INJ 10 ML SYR IV SCH (05:32)
[2016-10-25] MEDS: HEPARIN DRIP 25,000 UNITS in APPROPRIATE DILUENT 1 EA IV SCH (05:38)
[2016-10-25 06:00] VITALS: BP 151/61
[2016-10-25 07:11] LABS: BASO % 0.8 % (0.0-1.0); EOS # 0.3 K/mm3 (0.0-0.50); EOS % 5.8 % (0.0-3.0); LARGE UNSTAINED CELL # 0.2 K/mm3 (0.0-0.4); LARGE UNSTAINED CELL % 3.4 % (0.0-4.0); LYMPH # 1.4 K/mm3 (1.5-4.5); LYMPH % 25.9 % (24.0-44.0); MEAN CORPUSCULAR HEMOGLOBIN 28.6 pg (27.0-33.0); MEAN CORPUSCULAR HGB CONC 31.3 g/dl (32.0-36.5); MEAN CORPUSCULAR VOLUME 91.5 fl (80.0-96.0); MONO # 0.3 K/mm3 (0.0-0.8); MONO % 5.6 % (0.0-5.0); NEUTROPHILS # 3.2 K/mm3 (1.8-7.7); NEUTROPHILS % 58.5 % (36.0-66.0); PLATELET COUNT, AUTOMATED 271 k/mm3 (150-450); RED CELL DISTRIBUTION WIDTH 15.4 % (11.5-14.5); WHITE BLOOD COUNT 5.5 K/mm3 (4.0-10.0)
[2016-10-25 07:23] LABS: INR 2.48
[2016-10-25 07:44] LABS: CALCIUM LEVEL 8.7 MG/DL (8.8-10.2); CREATININE FOR GFR 1.88 MG/DL (0.70-1.30); GLOMERULAR FILTRATION RATE 38.4 (>49); POTASSIUM SERUM 3.8 MEQ/L (3.5-5.1)
[2016-10-25] MEDS ORDERED: PERCOCET PO (07:59)
[2016-10-25] MEDS ORDERED: ENOX120I3 SC ×2 (07:59→08:13)
[2016-10-25] MEDS ORDERED: NYST10PW TOP (07:59)
[2016-10-25] MEDS ORDERED: COUM10TA PO (07:59)
[2016-10-25] MEDS: HumaLOG INSULIN (NovoLOG) PER UNIT SC SCH ×2 (08:01→12:00)
[2016-10-25] MEDS: VANCOMYCIN HCL 1,000 MG, VIAL MATE ADAPTER 1 EACH in D5W 250 ML IV SCH (08:01)
[2016-10-25 08:13] LABS: VANCOMYCIN RANDOM 15.5 UG/ML
[2016-10-25] MEDS: GABAPENTIN 300 MG CAP PO SCH (08:47)
[2016-10-25] MEDS: MULTIVITAMINS/MINERALS THERAP 1 TAB PO SCH (08:47)
[2016-10-25] MEDS: FUROSEMIDE 80 MG TAB PO SCH (08:47)
[2016-10-25] MEDS: ALLOPURINOL 100 MG TAB PO SCH (08:47)
[2016-10-25] MEDS: NYSTATIN 100,000 UNITS/GM TOPICAL PWD 15 GM TOP SCH (08:48)
[2016-10-25 12:40] VITALS: BP 144/61
[2016-10-25] MEDS ORDERED: SODIUM CHLORIDE 0.9% INJ 10 ML SYR IV PRN (13:45)
[2016-10-25] MEDS ORDERED: SODIUM CHLORIDE 0.9% INJ 10 ML SYR IV SCH (18:00)
--- NOTE | 2016-10-27 17:29 | DSES ---
DATE OF ADMISSION: 10/12/2016 DATE OF DISCHARGE: 10/25/2016 Specialist involved in care: Dr. Teixeira, Dr. Cobb. There are no complications during his stay. Procedures performed during stay included debridement of his left foot diabetic ulcer. No complications during his stay. DISCHARGE DIAGNOSES: Osteomyelitis of his left foot. Atrial flutter. Diabetes. Aortic valve prosthetic. Chronic kidney disease, stage III. Obstructive sleep apnea. The following is a summary of his hospitalization: This is a 66-year-old gentleman who had recently been discharged from [facility] with left lower extremity osteomyelitis. He had a prolonged hospital course, went home with Zosyn and a peripherally inserted central catheter (PICC) line, to obtain a fourth opinion regarding his left lower extremity from Dr. Cobb. He was seen by Dr. Cobb, sent to the hospital for surgical exploration of his foot. He was seen by Dr. Teixeira for treatment of his osteomyelitis. He was treated with antibiotics, and because of his history of aortic valve replacement, was on a heparin drip. Wound culture grew Staphylococcus (staph) and yeast. Plan was to discharge the patient with a wound VAC with vancomycin and Zosyn. He had difficulty with vancomycin dosing previously. Dr. Teixeira discussed this at some length with the visiting nurses. Will plan to follow as an outpatient. The patient's stay was somewhat prolonged as his international normalized ratio (INR) was difficult to return to baseline. He was requiring higher levels of Coumadin. On the day of discharge, he is feeling well. He is anxious to leave and is willing to use Lovenox at home as a bridge. Temperature is 97.8, pulse 80, respiratory rate 16, blood pressure 151/61, 96% on room air. He is awake, appropriately interactive, pleasantly conversant. Breathing is symmetrical and rested. Heart is in a regular rhythm. Left foot has a wound VAC in place. He is able to ambulate without difficulty. White cell count is 5.5, hemoglobin is 8.7, BUN 27, creatinine 1.88, which is about his baseline for the last 8 days of hospitalization. C-reactive protein on the day of discharge is 1.97 and INR is 2.48. DISCHARGE INSTRUCTIONS INCLUDE THE FOLLOWING: Followup with Dr. Teixeira, Dr. Cobb, Dr. Mata in 1 week. I did discuss this case with Krystal Reza at the time of discharge as they will be following the INRs which have been ordered. Medications at the time of discharge include: - Lovenox 120 mg subcutaneously daily - Nystatin one dose topically twice daily - Percocet every 4 hours as needed for pain #28 - Coumadin 10 mg by mouth daily, which is a new dose - allopurinol 100 mg by mouth daily - Colace 100 mg by mouth twice daily - Lasix 80 mg by mouth daily and 40 mg in the evening - Neurontin 300 mg by mouth twice daily - Continuing his home NovoLog - Continuing metoprolol succinate 100 mg by mouth daily - multivitamin tablet daily - Crestor 20 mg by mouth daily at bedtime - Toujeo SoloStar 100 units subcutaneously daily at bedtime DISCONTINUE losartan. DISCONTINUING metoprolol succinate. DISCONTINUING previous dose of Coumadin. The patient is sent home on vancomycin and Zosyn per Dr. Teixeira's instructions. PICC line per [facility]. PT and INR every other day for 2 weeks. CBC, CMP, ESR and vancomycin level every Sunday. Call Dr. Cobb for temperature of 101, increased pain, redness, swelling of left foot or any concerns.
== END 2016-10-25 14:25 | disposition home health service (06) | DRG 982 ==
LOC: M ED 10:28 → M ED INP 11:49 → M PCU 16:28 → M MS5PR 10-14 12:00
PROVIDERS: ADMIT Internal Medicine; ATTEND Internal Medicine
PROC: 0QBM0ZZ Excision of Left Tarsal, Open Approach (ICD-10-PCS; 2016-10-13)
PROC: 0KBW0ZZ Excision of Left Foot Muscle, Open Approach (ICD-10-PCS; principal; 2016-10-19 10:52)
DX: N18.3 Chronic kidney disease, stage 3 (moderate) (principal); M86.172 Other acute osteomyelitis, left ankle and foot; I48.92 Unspecified atrial flutter; I50.32 Chronic diastolic (congestive) heart failure; Z68.42 Body mass index [BMI] 45.0-49.9, adult; I13.0 Hypertensive heart and chronic kidney disease with heart failure and stage 1 through stage 4 chronic kidney disease, or unspecified chronic kidney disease; E11.69 Type 2 diabetes mellitus with other specified complication; E66.01 Morbid (severe) obesity due to excess calories; G47.33 Obstructive sleep apnea (adult) (pediatric); Z79.899 Other long term (current) drug therapy; K21.9 Gastro-esophageal reflux disease without esophagitis; I25.10 Atherosclerotic heart disease of native coronary artery without angina pectoris; Z79.4 Long term (current) use of insulin; Z79.01 Long term (current) use of anticoagulants; E11.621 Type 2 diabetes mellitus with foot ulcer

== ENCOUNTER 2016-10-30 15:58 | Emergency (ER) | payer OTHER ==
[~2016-10-30] VITALS: Ht 182.9 cm; Wt 154.2 kg
[~2016-10-30 15:58] MED LIST changes: +ALLO100T PO; +COUM10TA PO; +CRES20TA PO; +DOCU100C PO; +ENOX120I3 SC; +FURO40TA2 PO; +INSUHUMDS SC; +LOSA25TA8 PO; +METO-207 PO; +METO-209 PO; +NEUR300C PO; +NOVOINJ3 SC; +NYST10PW TOP; +PERCOCET PO; +TOUJ1.2I SC; +VITMTA PO; +WARF-20 PO; +ZOSY1SOL5 IV; +ZOSY2INJ2 IV
[2016-10-30] MEDS ORDERED: [UNRECOGNIZED DRUG - CODE] (16:15)
[2016-10-30] MEDS ORDERED: VANC10IN (16:15)
[2016-10-30] MEDS ORDERED: diphenhydrAMINE 25 MG CAP PO ONE (17:15)
[2016-10-30 17:30] LABS: INR 2.77
[2016-10-30 17:54] LABS: ALBUMIN 2.9 GM/DL (3.2-5.2); ALBUMIN/GLOBULIN RATIO 0.64 (1.00-1.93); BILIRUBIN,TOTAL 0.4 MG/DL (0.2-1.0); CALCIUM LEVEL 8.6 MG/DL (8.8-10.2); CREATININE FOR GFR 1.65 MG/DL (0.70-1.30); GLOMERULAR FILTRATION RATE 44.7 (>49); POTASSIUM SERUM 3.5 MEQ/L (3.5-5.1); TOTAL PROTEIN 7.4 GM/DL (6.4-8.2); VANCOMYCIN RANDOM 21.4 UG/ML
[2016-10-30 17:58] LABS: BASO % 0.7 % (0.0-1.0); EOS # 0.3 K/mm3 (0.0-0.50); EOS % 5.3 % (0.0-3.0); LARGE UNSTAINED CELL # 0.1 K/mm3 (0.0-0.4); LARGE UNSTAINED CELL % 1.8 % (0.0-4.0); LYMPH # 1.1 K/mm3 (1.5-4.5); LYMPH % 20.3 % (24.0-44.0); MEAN CORPUSCULAR HEMOGLOBIN 29.2 pg (27.0-33.0); MEAN CORPUSCULAR HGB CONC 31.7 g/dl (32.0-36.5); MEAN CORPUSCULAR VOLUME 91.9 fl (80.0-96.0); MONO # 0.3 K/mm3 (0.0-0.8); MONO % 5.7 % (0.0-5.0); NEUTROPHILS # 3.4 K/mm3 (1.8-7.7); NEUTROPHILS % 66.2 % (36.0-66.0); PLATELET COUNT, AUTOMATED 270 k/mm3 (150-450); RED CELL DISTRIBUTION WIDTH 16.5 % (11.5-14.5); WHITE BLOOD COUNT 5.1 K/mm3 (4.0-10.0)
[2016-10-30 18:20] LABS: ERYTHROCYTE SEDIMENTATION RATE > 140 mm/hr (0-20)
[2016-10-30 19:37] VITALS: BP 110/65
== END 2016-10-30 19:38 | disposition home or self-care (01) ==
LOC: M ED 17:37
DX: R21 Rash and other nonspecific skin eruption (principal); E11.21 Type 2 diabetes mellitus with diabetic nephropathy; I10 Essential (primary) hypertension; Z79.4 Long term (current) use of insulin; Z79.84 Long term (current) use of oral hypoglycemic drugs; Z79.899 Other long term (current) drug therapy; Z79.02 Long term (current) use of antithrombotics/antiplatelets; Z88.1 Allergy status to other antibiotic agents

== ENCOUNTER → 2016-12-26 | Outpatient (REF) | payer OTHER ==
[~2016-12-26] MED LIST changes: -DOCU100C PO; +DOCU100C16 PO; -METO-207 PO; -METO-209 PO; +METO1TAB33 PO; +METO1TAB7 PO; +VANC10IN; +[UNRECOGNIZED DRUG - CODE]
[2016-12-26 14:37] LABS: ADD MORPHOLOGY? YES; BASO % 0.7 % (0.0-1.0); EOS # 0.2 K/mm3 (0.0-0.50); EOS % 3.2 % (0.0-3.0); LARGE UNSTAINED CELL # 0.1 K/mm3 (0.0-0.4); LARGE UNSTAINED CELL % 1.4 % (0.0-4.0); LYMPH # 1.5 K/mm3 (1.5-4.5); LYMPH % 25.8 % (24.0-44.0); MEAN CORPUSCULAR HEMOGLOBIN 25.9 pg (27.0-33.0); MEAN CORPUSCULAR HGB CONC 30.4 g/dl (32.0-36.5); MEAN CORPUSCULAR VOLUME 85.3 fl (80.0-96.0); MONO # 0.4 K/mm3 (0.0-0.8); NEUTROPHILS # 3.4 K/mm3 (1.8-7.7); NEUTROPHILS % 61.9 % (36.0-66.0); PLATELET COUNT, AUTOMATED 234 k/mm3 (150-450); RED CELL DISTRIBUTION WIDTH 17.7 % (11.5-14.5); WHITE BLOOD COUNT 5.4 K/mm3 (4.0-10.0)
[2016-12-26 14:52] LABS: ERYTHROCYTE SEDIMENTATION RATE 60 mm/hr (0-20)
[2016-12-26 14:53] LABS: HYPOCHROMASIA 2+
[2016-12-26 15:49] LABS: ALBUMIN 3.1 GM/DL (3.2-5.2); ALBUMIN/GLOBULIN RATIO 0.86 (1.00-1.93); BILIRUBIN,TOTAL 0.4 MG/DL (0.2-1.0); CALCIUM LEVEL 8.6 MG/DL (8.8-10.2); CREATININE FOR GFR 1.3 MG/DL (0.70-1.30); GLOMERULAR FILTRATION RATE 58.8 (>49); TOTAL PROTEIN 6.7 GM/DL (6.4-8.2)
== END ==
LOC: M SFHCPLAZ 13:28
PROVIDERS: ATTEND Internal Medicine Infectious Disease
DX: M86.272 Subacute osteomyelitis, left ankle and foot (principal); E11.40 Type 2 diabetes mellitus with diabetic neuropathy, unspecified; Z79.01 Long term (current) use of anticoagulants; Z79.4 Long term (current) use of insulin; Z79.899 Other long term (current) drug therapy
CPT/HCPCS: 80053; 83036; 85025; 85652; 86140; 87070; 87077; 87186; 87205; G0463

== ENCOUNTER → 2017-01-26 | Outpatient (REF) | payer OTHER | LOC: M LAB REF 10:15 | PROVIDERS: ATTEND Podiatrist | DX: E11.621 Type 2 diabetes mellitus with foot ulcer (principal) ==

== ENCOUNTER → 2017-04-09 | Outpatient (REF) | payer OTHER ==
[2017-04-09 12:01] LABS: BASO # 0.1 10^3/uL (0.0-0.2); BASO % 0.9 % (0.0-1.0); EOS # 0.2 10^3/uL (0.0-0.50); EOS % 2.9 % (0.0-3.0); IMMATURE GRANULOCYTE % 0.5 % (0-0); LYMPH # 1.7 10^3/uL (1.5-4.5); LYMPH % 26.8 % (24.0-44.0); MEAN CORPUSCULAR HEMOGLOBIN 25.2 pg (27.0-33.0); MEAN CORPUSCULAR HGB CONC 30.6 g/dl (32.0-36.5); MEAN CORPUSCULAR VOLUME 82.4 fl (80.0-96.0); MONO # 0.6 10^3/uL (0.0-0.8); MONO % 9.1 % (0.0-5.0); NEUTROPHILS # 3.9 10^3/uL (1.8-7.7); NEUTROPHILS % 59.8 % (36.0-66.0); PLATELET COUNT, AUTOMATED 248 10^3/uL (150-450); RED CELL DISTRIBUTION WIDTH 19.4 % (11.5-14.5); WHITE BLOOD COUNT 6.5 10^3/uL (4.0-10.0)
[2017-04-09 12:49] LABS: ANION GAP 5 MEQ/L (8-16); BLOOD UREA NITROGEN 15 MG/DL (7-18); CALCIUM LEVEL 8.6 MG/DL (8.8-10.2); CARBON DIOXIDE LEVEL 30 MEQ/L (21-32); CHLORIDE LEVEL 108 MEQ/L (98-107); CREATININE FOR GFR 1.13 MG/DL (0.70-1.30); GLOMERULAR FILTRATION RATE > 60.0 (>49); GLUCOSE, FASTING 119 MG/DL (80-110); POTASSIUM SERUM 3.8 MEQ/L (3.5-5.1); SODIUM LEVEL 143 MEQ/L (136-145)
[2017-04-09 12:58] LABS: ERYTHROCYTE SEDIMENTATION RATE 55 mm/hr (0-20)
== END ==
LOC: M SFHCPLAZ 10:23
PROVIDERS: ATTEND Internal Medicine Infectious Disease
DX: M86.272 Subacute osteomyelitis, left ankle and foot (principal); I10 Essential (primary) hypertension; Z23 Encounter for immunization
CPT/HCPCS: 80048; 85025; 85652; 86140; 90662; G0008; G0463

== ENCOUNTER 2017-05-21 12:45 | Inpatient (IN) | payer OTHER ==
[2017-05-21 14:42] LABS: BASO % 0.4 % (0.0-1.0); EOS % 0.2 % (0.0-3.0); HEMATOCRIT 39.4 % (42.0-52.0); HEMOGLOBIN 12.5 g/dl (14.0-18.0); IMMATURE GRANULOCYTE # 0.1 10^3/uL (0-0); IMMATURE GRANULOCYTE % 0.8 % (0-0); LYMPH # 0.9 10^3/uL (1.5-4.5); LYMPH % 8.8 % (24.0-44.0); MEAN CORPUSCULAR HEMOGLOBIN 25.6 pg (27.0-33.0); MEAN CORPUSCULAR HGB CONC 31.7 g/dl (32.0-36.5); MEAN CORPUSCULAR VOLUME 80.7 fl (80.0-96.0); MONO # 0.8 10^3/uL (0.0-0.8); MONO % 7.9 % (0.0-5.0); NEUTROPHILS # 8.5 10^3/uL (1.8-7.7); NEUTROPHILS % 81.9 % (36.0-66.0); PLATELET COUNT, AUTOMATED 280 10^3/uL (150-450); RED BLOOD COUNT 4.88 10^6/uL (4.30-6.10); RED CELL DISTRIBUTION WIDTH 17.4 % (11.5-14.5); WHITE BLOOD COUNT 10.3 10^3/uL (4.0-10.0)
[2017-05-21] MEDS: NS 1,000 ML IV ×2 (15:00→21:41)
[2017-05-21 15:03] LABS: ERYTHROCYTE SEDIMENTATION RATE 72 mm/hr (0-20)
[2017-05-21] MEDS: AMPICILLIN SOD/SULBACTAM SOD 3 GM in D5W MINI-BAG PLUS 100 ML IV (15:12)
[2017-05-21 15:16] LABS: LACTIC ACID SEPSIS PROTOCOL 1.5 MMOL/L (0.4-2.0)
[2017-05-21 15:53] LABS: ALBUMIN 2.6 GM/DL (3.2-5.2); ALBUMIN/GLOBULIN RATIO 0.65 (1.00-1.93); ALKALINE PHOSPHATASE 249 U/L (45-117); ALT/SGPT 23 U/L (12-78); ANION GAP 8 MEQ/L (8-16); AST/SGOT 28 U/L (7-37); BLOOD UREA NITROGEN 17 MG/DL (7-18); CALCIUM LEVEL 8.8 MG/DL (8.8-10.2); CARBON DIOXIDE LEVEL 25 MEQ/L (21-32); CHLORIDE LEVEL 102 MEQ/L (98-107); CREATININE FOR GFR 1.37 MG/DL (0.70-1.30); GLOMERULAR FILTRATION RATE 55.2 (>49); GLUCOSE, FASTING 243 MG/DL (80-110); POTASSIUM SERUM 4.3 MEQ/L (3.5-5.1); SODIUM LEVEL 135 MEQ/L (136-145); TOTAL PROTEIN 6.6 GM/DL (6.4-8.2)
[2017-05-21] MEDS ORDERED: ISOVUE-370 76% 100ML VIAL (Q9967) As Ordered (19:13)
[2017-05-21] MEDS ORDERED: MORPHINE 4 MG/ML 1ML SYRINGE IV (19:15)
[2017-05-21] MEDS: ACETAMINOPHEN 325 MG TAB PO (20:24)
[2017-05-21] MEDS ORDERED: DEXTROSE 50% 50 ML SYRINGE IV (21:15)
[2017-05-21] MEDS ORDERED: ONDANSETRON 4MG/2ML VIAL (J2405) IV (21:15)
[2017-05-21] MEDS ORDERED: GLUCOSE 4 GM CHEW TABLET PO (21:15)
[2017-05-21] MEDS ORDERED: GLUCAGON FOR INJ 1 MG VIAL (J1610) SC (21:15)
[2017-05-21 21:34] LABS: BEDSIDE GLUCOSE 255 MG/DL (80-115)
[2017-05-21 21:35] LABS: INR 2.73; PROTHROMBIN TIME 30.1 SECONDS (12.4-14.5)
[2017-05-21 21:37] LABS: PARTIAL THROMBOPLASTIN TIME 70.4 SECONDS (26.8-37.9)
[2017-05-21] MEDS: HumaLOG INSULIN (NovoLOG) PER UNIT SC (21:42)
[2017-05-21] MEDS ORDERED: VANCOMYCIN HCL 1,000 MG, VIAL MATE ADAPTER 1 EACH in D5W 250 ML IV (21:45)
[2017-05-21] MEDS ORDERED: DOCUSATE SODIUM 100 MG CAP PO (21:45)
[2017-05-21 22:14] LABS: APPEARANCE, URINE HAZY (CLEAR); BACTERIA, URINE AUTO NEGATIVE (NEGATIVE); BILIRUBIN, URINE AUTO NEGATIVE (NEGATIVE); BLOOD, URINE BLOOD 2+ (NEGATIVE); COLOR, URINE YELLOW (YELLOW); GLUCOSE, URINE (UA) AUTO 1+ mg/dL (NEGATIVE); KETONE, URINE AUTO TRACE mg/dL (NEGATIVE); LEUKOCYTE ESTERASE, URINE AUTO NEGATIVE (NEGATIVE); MUCUS, URINE SMALL (NEGATIVE); NITRITE, URINE AUTO NEGATIVE (NEGATIVE); PROTEIN, URINE AUTO 2+ mg/dL (NEGATIVE); RBC, URINE AUTO 8 /HPF (0-3); SQUAMOUS EPITHELIAL CELL UR AU 0 /HPF (0-6); WBC, URINE AUTO 1 /HPF (0-3)
[2017-05-21] MEDS: METOPROLOL SUCC *XL* 25MG TAB (TopROL *XL*) PO (23:41)
[2017-05-21] MEDS: WARFARIN SOD 4 MG TAB PO (23:46)
[2017-05-21] MEDS: ROSUVASTATIN 10 MG TAB (CRESTOR) PO (23:47)
[2017-05-21] MEDS: GABAPENTIN 300 MG CAP PO (23:47)
[2017-05-21] MEDS: LEVEMIR (INSULIN DETEMIR) 1 UNITS/0.01ML SC (23:50)
[2017-05-21] MEDS: MEROPENEM INJ 1 GM in APPROPRIATE DILUENT 1 EA IV (23:50)
[2017-05-22] MEDS: VANCOMYCIN HCL 1,000 MG, VIAL MATE ADAPTER 1 EACH in D5W 250 ML IV ×4 (00:55→17:01)
[2017-05-22] MEDS: ONDANSETRON 4MG/2ML VIAL (J2405) IV (04:51)
[2017-05-22] MEDS: methylPREDNISolone INJ 125 MG/2 ML VIAL (J2930) IV (04:52)
[2017-05-22] MEDS: NS 1,000 ML IV (04:53)
[2017-05-22] MEDS: ACETAMINOPHEN TAB 650MG DOSE (2X325MG) PO (05:48)
[2017-05-22 07:05] LABS: BASO % 0.6 % (0.0-1.0); EOS # 0.1 10^3/uL (0.0-0.50); EOS % 0.7 % (0.0-3.0); HEMATOCRIT 35.4 % (42.0-52.0); HEMOGLOBIN 11.2 g/dl (14.0-18.0); IMMATURE GRANULOCYTE % 0.4 % (0-0); LYMPH # 0.6 10^3/uL (1.5-4.5); LYMPH % 9.1 % (24.0-44.0); MEAN CORPUSCULAR HEMOGLOBIN 25.3 pg (27.0-33.0); MEAN CORPUSCULAR HGB CONC 31.6 g/dl (32.0-36.5); MEAN CORPUSCULAR VOLUME 79.9 fl (80.0-96.0); MONO # 0.6 10^3/uL (0.0-0.8); MONO % 8.4 % (0.0-5.0); NEUTROPHILS # 5.6 10^3/uL (1.8-7.7); NEUTROPHILS % 80.8 % (36.0-66.0); PLATELET COUNT, AUTOMATED 268 10^3/uL (150-450); RED BLOOD COUNT 4.43 10^6/uL (4.30-6.10); RED CELL DISTRIBUTION WIDTH 17.4 % (11.5-14.5); WHITE BLOOD COUNT 6.9 10^3/uL (4.0-10.0)
[2017-05-22 07:17] LABS: INR 3.95; PROTHROMBIN TIME 40.6 SECONDS (12.4-14.5)
[2017-05-22 07:31] LABS: ESTIMATED AVERAGE GLUCOSE 249 MG/DL (60-110); HEMOGLOBIN A1c 10.3 %
[2017-05-22 07:33] LABS: ANION GAP 11 MEQ/L (8-16); BLOOD UREA NITROGEN 17 MG/DL (7-18); CALCIUM LEVEL 8.7 MG/DL (8.8-10.2); CARBON DIOXIDE LEVEL 22 MEQ/L (21-32); CHLORIDE LEVEL 101 MEQ/L (98-107); CREATININE FOR GFR 1.37 MG/DL (0.70-1.30); GLOMERULAR FILTRATION RATE 55.2 (>49); GLUCOSE, FASTING 275 MG/DL (80-110); MAGNESIUM LEVEL 1.6 MG/DL (1.8-2.4); POTASSIUM SERUM 3.5 MEQ/L (3.5-5.1); SODIUM LEVEL 134 MEQ/L (136-145)
[2017-05-22] MEDS: HumaLOG INSULIN (NovoLOG) PER UNIT SC ×4 (07:49→20:27)
[2017-05-22] MEDS: FERROUS SULFATE 325MG TAB PO (07:50)
[2017-05-22] MEDS: MEROPENEM INJ 1 GM in APPROPRIATE DILUENT 1 EA IV ×2 (07:50→16:12)
[2017-05-22] MEDS: ALLOPURINOL 100 MG TAB PO (07:50)
[2017-05-22] MEDS: FUROSEMIDE 20 MG TAB PO ×2 (07:50→16:12)
[2017-05-22] MEDS: LEVEMIR (INSULIN DETEMIR) 1 UNITS/0.01ML SC ×2 (07:50→20:45)
[2017-05-22] MEDS: GABAPENTIN 300 MG CAP PO ×3 (07:50→20:44)
[2017-05-22] MEDS: MULTIVITAMINS/MINERALS THERAP 1 TAB PO (07:51)
[2017-05-22] MEDS: MAG SULF 1GM/100ML (MAG RUN) 1 GM in APPROPRIATE DILUENT 1 EA IV ×2 (10:13→12:10)
[2017-05-22] MEDS: POTASSIUM CHLORIDE 10 MEQ SR TABLET PO (10:14)
[2017-05-22 10:21] LABS: ERYTHROCYTE SEDIMENTATION RATE 96 mm/hr (0-20)
[2017-05-22 11:46] LABS: BEDSIDE GLUCOSE 260 MG/DL (80-115)
[2017-05-22 12:45] LABS: BEDSIDE GLUCOSE 231 MG/DL (80-115)
[2017-05-22 13:55] LABS: BEDSIDE GLUCOSE 198 MG/DL (80-115)
[2017-05-22 17:02] LABS: BEDSIDE GLUCOSE 141 MG/DL (80-115)
[2017-05-22] MEDS: LIDOCAINE 2% MDV 20 ML VIAL As Ordered (17:12)
[2017-05-22] MEDS: dexameTHASONE 4 MG/ML 1ML VIAL (J1100) As Ordered (17:12)
[2017-05-22] MEDS: NEOSPORIN GU IRRIG 20 ML VIAL As Ordered (17:13)
[2017-05-22] MEDS: BACITRACIN PWD 50,000 UNITS VIAL As Ordered (17:13)
[2017-05-22] MEDS ORDERED: LIDOCAINE 2% INJ 100 MG/5 ML SDV (FOR ANES.) As Ordered (17:15)
[2017-05-22] MEDS ORDERED: fentaNYL 100 MCG/2 ML INJECTION (J3010) As Ordered (17:15)
[2017-05-22] MEDS ORDERED: PROPOFOL 200 MG/20 ML VIAL As Ordered (17:15)
[2017-05-22] MEDS ORDERED: MIDAZOLAM INJ 2 MG/2 ML VIAL (J2250) As Ordered (17:15)
[2017-05-22] MEDS: ROPIvacaine 0.5% 30 ML INJECTION (J2795 PER 1MG) As Ordered (17:55)
[2017-05-22] MEDS: GENTAMICIN SULF INJ 80MG/2ML VIAL (J1580) As Ordered (18:18)
[2017-05-22] MEDS ORDERED: ONDANSETRON 4MG/2ML VIAL (J2405) IV (18:45)
[2017-05-22] MEDS ORDERED: fentaNYL 100 MCG/2 ML INJECTION (J3010) IV (18:45)
[2017-05-22] MEDS ORDERED: NORCO, ANEXSIA 5/325MG TABLET (HYDROcodone/ACETAMINOPHEN) PO ×2 (19:00)
[2017-05-22 19:25] LABS: BEDSIDE GLUCOSE 153 MG/DL (80-115)
[2017-05-22] MEDS: LR 1,000 ML IV (19:43)
[2017-05-22] MEDS: ROSUVASTATIN 10 MG TAB (CRESTOR) PO (20:44)
[2017-05-22] MEDS: METOPROLOL SUCC *XL* 25MG TAB (TopROL *XL*) PO (20:47)
[2017-05-23] MEDS: MEROPENEM INJ 1 GM in APPROPRIATE DILUENT 1 EA IV ×2 (00:12→08:01)
[2017-05-23 00:44] LABS: VANCOMYCIN LEVEL TROUGH 22.7 UG/ML (10.0-20.0)
[2017-05-23] MEDS: VANCOMYCIN HCL 1,000 MG, VIAL MATE ADAPTER 1 EACH in D5W 250 ML IV ×2 (05:22→16:40)
[2017-05-23 07:14] LABS: BASO % 0.3 % (0.0-1.0); EOS # 0.1 10^3/uL (0.0-0.50); EOS % 2.4 % (0.0-3.0); HEMATOCRIT 34.5 % (42.0-52.0); HEMOGLOBIN 10.9 g/dl (14.0-18.0); IMMATURE GRANULOCYTE % 0.7 % (0-0); LYMPH # 1.2 10^3/uL (1.5-4.5); LYMPH % 21.3 % (24.0-44.0); MEAN CORPUSCULAR HEMOGLOBIN 25.3 pg (27.0-33.0); MEAN CORPUSCULAR HGB CONC 31.6 g/dl (32.0-36.5); MEAN CORPUSCULAR VOLUME 80.2 fl (80.0-96.0); MONO # 0.6 10^3/uL (0.0-0.8); MONO % 9.5 % (0.0-5.0); NEUTROPHILS # 3.8 10^3/uL (1.8-7.7); NEUTROPHILS % 65.8 % (36.0-66.0); PLATELET COUNT, AUTOMATED 285 10^3/uL (150-450); RED CELL DISTRIBUTION WIDTH 17.9 % (11.5-14.5); WHITE BLOOD COUNT 5.8 10^3/uL (4.0-10.0)
[2017-05-23 07:26] LABS: INR 3.18; PROTHROMBIN TIME 34.1 SECONDS (12.4-14.5)
[2017-05-23] MEDS: HumaLOG INSULIN (NovoLOG) PER UNIT SC ×4 (07:30→21:00)
[2017-05-23 07:48] LABS: ERYTHROCYTE SEDIMENTATION RATE 102 mm/hr (0-20)
[2017-05-23 07:49] LABS: ANION GAP 10 MEQ/L (8-16); BLOOD UREA NITROGEN 17 MG/DL (7-18); CALCIUM LEVEL 7.6 MG/DL (8.8-10.2); CARBON DIOXIDE LEVEL 25 MEQ/L (21-32); CHLORIDE LEVEL 104 MEQ/L (98-107); CREATININE FOR GFR 1.38 MG/DL (0.70-1.30); GLOMERULAR FILTRATION RATE 54.7 (>49); GLUCOSE, FASTING 215 MG/DL (80-110); MAGNESIUM LEVEL 2.2 MG/DL (1.8-2.4); POTASSIUM SERUM 3.8 MEQ/L (3.5-5.1); SODIUM LEVEL 139 MEQ/L (136-145)
[2017-05-23] MEDS: GABAPENTIN 300 MG CAP PO ×3 (08:02→21:22)
[2017-05-23] MEDS: FERROUS SULFATE 325MG TAB PO (08:02)
[2017-05-23] MEDS: FUROSEMIDE 20 MG TAB PO ×2 (08:02→16:39)
[2017-05-23] MEDS: MULTIVITAMINS/MINERALS THERAP 1 TAB PO (08:02)
[2017-05-23] MEDS: ALLOPURINOL 100 MG TAB PO (08:02)
[2017-05-23] MEDS: LEVEMIR (INSULIN DETEMIR) 1 UNITS/0.01ML SC ×2 (08:02→21:00)
[2017-05-23] MEDS: PREVNAR 13 VACCINE SYRINGE (CPT CODE:90670) IM (08:04)
[2017-05-23 12:00] LABS: BEDSIDE GLUCOSE 277 MG/DL (80-115)
[2017-05-23 16:36] LABS: VANCOMYCIN LEVEL TROUGH 15.2 UG/ML (10.0-20.0)
[2017-05-23] MEDS: WARFARIN SOD 3 MG TAB PO (16:40)
[2017-05-23 17:27] LABS: BEDSIDE GLUCOSE 249 MG/DL (80-115)
[2017-05-23 20:57] LABS: BEDSIDE GLUCOSE 311 MG/DL (80-115)
[2017-05-23] MEDS: METOPROLOL SUCC *XL* 25MG TAB (TopROL *XL*) PO (21:21)
[2017-05-23] MEDS: ROSUVASTATIN 10 MG TAB (CRESTOR) PO (21:22)
[2017-05-24] MEDS: VANCOMYCIN HCL 1,000 MG, VIAL MATE ADAPTER 1 EACH in D5W 250 ML IV (04:20)
[2017-05-24] MEDS: HumaLOG INSULIN (NovoLOG) PER UNIT SC ×4 (07:30→21:00)
[2017-05-24 07:59] LABS: BASO % 0.6 % (0.0-1.0); EOS # 0.2 10^3/uL (0.0-0.50); EOS % 4.6 % (0.0-3.0); HEMATOCRIT 34.1 % (42.0-52.0); HEMOGLOBIN 10.7 g/dl (14.0-18.0); IMMATURE GRANULOCYTE % 0.8 % (0-0); LYMPH # 1.4 10^3/uL (1.5-4.5); LYMPH % 27.6 % (24.0-44.0); MEAN CORPUSCULAR HEMOGLOBIN 25.4 pg (27.0-33.0); MEAN CORPUSCULAR HGB CONC 31.4 g/dl (32.0-36.5); MEAN CORPUSCULAR VOLUME 80.8 fl (80.0-96.0); MONO # 0.5 10^3/uL (0.0-0.8); NEUTROPHILS # 2.9 10^3/uL (1.8-7.7); NEUTROPHILS % 56.4 % (36.0-66.0); PLATELET COUNT, AUTOMATED 290 10^3/uL (150-450); RED BLOOD COUNT 4.22 10^6/uL (4.30-6.10); RED CELL DISTRIBUTION WIDTH 17.6 % (11.5-14.5); WHITE BLOOD COUNT 5.2 10^3/uL (4.0-10.0)
[2017-05-24 08:10] LABS: INR 2.69; PROTHROMBIN TIME 29.8 SECONDS (12.4-14.5)
[2017-05-24 08:26] LABS: ANION GAP 7 MEQ/L (8-16); BLOOD UREA NITROGEN 17 MG/DL (7-18); CALCIUM LEVEL 8.1 MG/DL (8.8-10.2); CARBON DIOXIDE LEVEL 27 MEQ/L (21-32); CHLORIDE LEVEL 105 MEQ/L (98-107); CREATININE FOR GFR 1.15 MG/DL (0.70-1.30); GLOMERULAR FILTRATION RATE > 60.0 (>49); GLUCOSE, FASTING 83 MG/DL (80-110); MAGNESIUM LEVEL 2.1 MG/DL (1.8-2.4); POTASSIUM SERUM 3.5 MEQ/L (3.5-5.1); SODIUM LEVEL 139 MEQ/L (136-145)
[2017-05-24 08:28] LABS: ERYTHROCYTE SEDIMENTATION RATE 90 mm/hr (0-20)
[2017-05-24] MEDS: FERROUS SULFATE 325MG TAB PO (08:59)
[2017-05-24] MEDS: GABAPENTIN 300 MG CAP PO ×3 (08:59→21:01)
[2017-05-24] MEDS: MULTIVITAMINS/MINERALS THERAP 1 TAB PO (09:00)
[2017-05-24] MEDS: FUROSEMIDE 20 MG TAB PO ×2 (09:00→16:45)
[2017-05-24] MEDS: POTASSIUM CHLORIDE 10 MEQ SR TABLET PO (09:00)
[2017-05-24] MEDS: SILVER SULFADIAZINE 1% CR 50 GM JAR TOP ×2 (09:00→21:00)
[2017-05-24] MEDS: ALLOPURINOL 100 MG TAB PO (09:00)
[2017-05-24] MEDS: LEVEMIR (INSULIN DETEMIR) 1 UNITS/0.01ML SC ×2 (09:01→21:00)
[2017-05-24 11:56] LABS: BEDSIDE GLUCOSE 207 MG/DL (80-115)
[2017-05-24] MEDS: WARFARIN SOD 3 MG TAB PO (16:45)
[2017-05-24 16:48] LABS: BEDSIDE GLUCOSE 222 MG/DL (80-115)
[2017-05-24] MEDS: NAFCILLIN SOD IV ×2 (17:41→22:56)
[2017-05-24] MEDS: DILUENT IV ×2 (17:41→22:56)
[2017-05-24 20:51] LABS: BEDSIDE GLUCOSE 235 MG/DL (80-115)
[2017-05-24] MEDS: ROSUVASTATIN 10 MG TAB (CRESTOR) PO (21:00)
[2017-05-24] MEDS: METOPROLOL SUCC *XL* 25MG TAB (TopROL *XL*) PO (21:01)
[2017-05-25] MEDS: DILUENT IV ×4 (05:24→23:11)
[2017-05-25] MEDS: NAFCILLIN SOD IV ×4 (05:24→23:11)
[2017-05-25 05:57] LABS: BASO # 0.1 10^3/uL (0.0-0.2); EOS # 0.2 10^3/uL (0.0-0.50); EOS % 4.1 % (0.0-3.0); HEMATOCRIT 36.2 % (42.0-52.0); IMMATURE GRANULOCYTE # 0.1 10^3/uL (0-0); IMMATURE GRANULOCYTE % 1.2 % (0-0); LYMPH # 1.5 10^3/uL (1.5-4.5); LYMPH % 31.8 % (24.0-44.0); MEAN CORPUSCULAR HEMOGLOBIN 24.8 pg (27.0-33.0); MEAN CORPUSCULAR HGB CONC 30.4 g/dl (32.0-36.5); MEAN CORPUSCULAR VOLUME 81.5 fl (80.0-96.0); MONO # 0.4 10^3/uL (0.0-0.8); MONO % 7.8 % (0.0-5.0); NEUTROPHILS # 2.6 10^3/uL (1.8-7.7); NEUTROPHILS % 54.1 % (36.0-66.0); PLATELET COUNT, AUTOMATED 304 10^3/uL (150-450); RED BLOOD COUNT 4.44 10^6/uL (4.30-6.10); RED CELL DISTRIBUTION WIDTH 17.4 % (11.5-14.5); WHITE BLOOD COUNT 4.9 10^3/uL (4.0-10.0)
[2017-05-25 06:15] LABS: INR 3.13; PROTHROMBIN TIME 33.6 SECONDS (12.4-14.5)
[2017-05-25 06:18] LABS: ANION GAP 6 MEQ/L (8-16); BLOOD UREA NITROGEN 22 MG/DL (7-18); C REACTIVE PROTEIN QUANTITATIV 8.48 MG/DL (0.00-0.30); CALCIUM LEVEL 8.1 MG/DL (8.8-10.2); CARBON DIOXIDE LEVEL 29 MEQ/L (21-32); CHLORIDE LEVEL 106 MEQ/L (98-107); CREATININE FOR GFR 1.21 MG/DL (0.70-1.30); GLOMERULAR FILTRATION RATE > 60.0 (>49); GLUCOSE, FASTING 146 MG/DL (80-110); MAGNESIUM LEVEL 2.2 MG/DL (1.8-2.4); POTASSIUM SERUM 3.9 MEQ/L (3.5-5.1); SODIUM LEVEL 141 MEQ/L (136-145)
[2017-05-25 06:50] LABS: ERYTHROCYTE SEDIMENTATION RATE 85 mm/hr (0-20)
[2017-05-25] MEDS: HumaLOG INSULIN (NovoLOG) PER UNIT SC ×4 (07:30→21:00)
[2017-05-25] MEDS: GABAPENTIN 300 MG CAP PO ×3 (08:21→23:09)
[2017-05-25] MEDS: MULTIVITAMINS/MINERALS THERAP 1 TAB PO (08:21)
[2017-05-25] MEDS: FUROSEMIDE 20 MG TAB PO ×2 (08:22→16:37)
[2017-05-25] MEDS: FERROUS SULFATE 325MG TAB PO (08:22)
[2017-05-25] MEDS: ALLOPURINOL 100 MG TAB PO (08:22)
[2017-05-25] MEDS: LEVEMIR (INSULIN DETEMIR) 1 UNITS/0.01ML SC ×2 (08:22→23:10)
[2017-05-25] MEDS: SILVER SULFADIAZINE 1% CR 50 GM JAR TOP ×2 (08:23→23:10)
[2017-05-25 11:52] LABS: BEDSIDE GLUCOSE 108 MG/DL (80-115)
[2017-05-25] MEDS ORDERED: MIDAZOLAM INJ 2 MG/2 ML VIAL (J2250) As Ordered (13:20)
[2017-05-25] MEDS ORDERED: LIDOCAINE 2% INJ 100 MG/5 ML SDV (FOR ANES.) As Ordered (13:24)
[2017-05-25] MEDS ORDERED: PROPOFOL 200 MG/20 ML VIAL As Ordered (13:24)
[2017-05-25] MEDS ORDERED: ePHEDrine SULFATE 25 MG/5 ML(5MG/ML) SYRINGE As Ordered (13:33)
[2017-05-25 14:59] LABS: BEDSIDE GLUCOSE 100 MG/DL (80-115)
[2017-05-25] MEDS: WARFARIN SOD 3 MG TAB PO (16:37)
[2017-05-25 16:58] LABS: BEDSIDE GLUCOSE 82 MG/DL (80-115)
[2017-05-25] MEDS: SODIUM CHLORIDE 0.9% INJ 10 ML SYR IV (18:00)
[2017-05-25 22:26] LABS: BEDSIDE GLUCOSE 168 MG/DL (80-115)
[2017-05-25] MEDS: ROSUVASTATIN 10 MG TAB (CRESTOR) PO (23:03)
[2017-05-25] MEDS: METOPROLOL SUCC *XL* 25MG TAB (TopROL *XL*) PO (23:09)
[2017-05-26] MEDS: NAFCILLIN SOD IV ×4 (05:45→22:22)
[2017-05-26] MEDS: DILUENT IV ×4 (05:45→22:22)
[2017-05-26] MEDS: SODIUM CHLORIDE 0.9% INJ 10 ML SYR IV ×3 (05:45→17:27)
[2017-05-26 06:16] LABS: BASO # 0.1 10^3/uL (0.0-0.2); BASO % 0.9 % (0.0-1.0); EOS # 0.2 10^3/uL (0.0-0.50); EOS % 3.3 % (0.0-3.0); HEMOGLOBIN 10.3 g/dl (14.0-18.0); IMMATURE GRANULOCYTE # 0.1 10^3/uL (0-0); IMMATURE GRANULOCYTE % 1.6 % (0-0); LYMPH # 1.4 10^3/uL (1.5-4.5); MEAN CORPUSCULAR HEMOGLOBIN 24.7 pg (27.0-33.0); MEAN CORPUSCULAR HGB CONC 30.3 g/dl (32.0-36.5); MEAN CORPUSCULAR VOLUME 81.5 fl (80.0-96.0); MONO # 0.5 10^3/uL (0.0-0.8); MONO % 7.9 % (0.0-5.0); NEUTROPHILS # 3.6 10^3/uL (1.8-7.7); NEUTROPHILS % 62.3 % (36.0-66.0); PLATELET COUNT, AUTOMATED 343 10^3/uL (150-450); RED BLOOD COUNT 4.17 10^6/uL (4.30-6.10); RED CELL DISTRIBUTION WIDTH 17.7 % (11.5-14.5); WHITE BLOOD COUNT 5.7 10^3/uL (4.0-10.0)
[2017-05-26 06:59] LABS: ERYTHROCYTE SEDIMENTATION RATE 92 mm/hr (0-20)
[2017-05-26 07:48] LABS: ANION GAP 12 MEQ/L (8-16); BLOOD UREA NITROGEN 20 MG/DL (7-18); C REACTIVE PROTEIN QUANTITATIV 6.58 MG/DL (0.00-0.30); CALCIUM LEVEL 7.4 MG/DL (8.8-10.2); CARBON DIOXIDE LEVEL 24 MEQ/L (21-32); CHLORIDE LEVEL 105 MEQ/L (98-107); CREATININE FOR GFR 1.18 MG/DL (0.70-1.30); GLOMERULAR FILTRATION RATE > 60.0 (>49); GLUCOSE, FASTING 206 MG/DL (80-110); MAGNESIUM LEVEL 2.6 MG/DL (1.8-2.4); POTASSIUM SERUM 3.7 MEQ/L (3.5-5.1); SODIUM LEVEL 141 MEQ/L (136-145)
[2017-05-26] MEDS: HumaLOG INSULIN (NovoLOG) PER UNIT SC ×4 (09:26→22:19)
[2017-05-26] MEDS: LEVEMIR (INSULIN DETEMIR) 1 UNITS/0.01ML SC ×2 (09:27→22:20)
[2017-05-26] MEDS: ALLOPURINOL 100 MG TAB PO (09:27)
[2017-05-26] MEDS: FERROUS SULFATE 325MG TAB PO (09:28)
[2017-05-26] MEDS: GABAPENTIN 300 MG CAP PO ×3 (09:28→22:18)
[2017-05-26] MEDS: MULTIVITAMINS/MINERALS THERAP 1 TAB PO (09:28)
[2017-05-26] MEDS: FUROSEMIDE 20 MG TAB PO ×2 (09:28→17:09)
[2017-05-26 12:08] LABS: BEDSIDE GLUCOSE 272 MG/DL (80-115)
[2017-05-26] MEDS: SILVER SULFADIAZINE 1% CR 50 GM JAR TOP ×2 (13:30→22:21)
[2017-05-26 16:45] LABS: BEDSIDE GLUCOSE 252 MG/DL (80-115)
[2017-05-26] MEDS: ROSUVASTATIN 10 MG TAB (CRESTOR) PO (21:00)
[2017-05-26] MEDS: METOPROLOL SUCC *XL* 25MG TAB (TopROL *XL*) PO (21:00)
[2017-05-26 21:27] LABS: BEDSIDE GLUCOSE 316 MG/DL (80-115)
[2017-05-27] MEDS: NAFCILLIN SOD IV ×4 (04:25→23:52)
[2017-05-27] MEDS: DILUENT IV ×4 (04:25→23:52)
[2017-05-27] MEDS: SODIUM CHLORIDE 0.9% INJ 10 ML SYR IV ×2 (05:09→17:28)
[2017-05-27 05:22] LABS: BASO % 0.6 % (0.0-1.0); EOS # 0.2 10^3/uL (0.0-0.50); EOS % 3.4 % (0.0-3.0); HEMATOCRIT 32.8 % (42.0-52.0); HEMOGLOBIN 9.9 g/dl (14.0-18.0); IMMATURE GRANULOCYTE # 0.1 10^3/uL (0-0); IMMATURE GRANULOCYTE % 1.9 % (0-0); LYMPH # 1.4 10^3/uL (1.5-4.5); LYMPH % 25.8 % (24.0-44.0); MEAN CORPUSCULAR HEMOGLOBIN 25.1 pg (27.0-33.0); MEAN CORPUSCULAR HGB CONC 30.2 g/dl (32.0-36.5); MONO # 0.4 10^3/uL (0.0-0.8); MONO % 7.6 % (0.0-5.0); NEUTROPHILS # 3.2 10^3/uL (1.8-7.7); NEUTROPHILS % 60.7 % (36.0-66.0); PLATELET COUNT, AUTOMATED 338 10^3/uL (150-450); RED BLOOD COUNT 3.95 10^6/uL (4.30-6.10); RED CELL DISTRIBUTION WIDTH 17.7 % (11.5-14.5); WHITE BLOOD COUNT 5.3 10^3/uL (4.0-10.0)
[2017-05-27 05:35] LABS: PROTHROMBIN TIME 37.7 SECONDS (12.4-14.5)
[2017-05-27 05:54] LABS: ANION GAP 7 MEQ/L (8-16); BLOOD UREA NITROGEN 23 MG/DL (7-18); C REACTIVE PROTEIN QUANTITATIV 6.13 MG/DL (0.00-0.30); CALCIUM LEVEL 7.2 MG/DL (8.8-10.2); CARBON DIOXIDE LEVEL 28 MEQ/L (21-32); CHLORIDE LEVEL 107 MEQ/L (98-107); CREATININE FOR GFR 1.35 MG/DL (0.70-1.30); GLOMERULAR FILTRATION RATE 56.1 (>49); GLUCOSE, FASTING 268 MG/DL (80-110); MAGNESIUM LEVEL 2.3 MG/DL (1.8-2.4); SODIUM LEVEL 142 MEQ/L (136-145)
[2017-05-27] MEDS: GABAPENTIN 300 MG CAP PO ×3 (08:13→23:50)
[2017-05-27] MEDS: FERROUS SULFATE 325MG TAB PO (08:13)
[2017-05-27] MEDS: MULTIVITAMINS/MINERALS THERAP 1 TAB PO (08:13)
[2017-05-27] MEDS: ALLOPURINOL 100 MG TAB PO (08:13)
[2017-05-27] MEDS: HumaLOG INSULIN (NovoLOG) PER UNIT SC ×4 (08:14→23:49)
[2017-05-27] MEDS: LEVEMIR (INSULIN DETEMIR) 1 UNITS/0.01ML SC ×2 (08:17→23:49)
[2017-05-27 12:03] LABS: BEDSIDE GLUCOSE 221 MG/DL (80-115)
[2017-05-27] MEDS: SILVER SULFADIAZINE 1% CR 50 GM JAR TOP ×2 (12:09→21:00)
[2017-05-27 17:00] LABS: BEDSIDE GLUCOSE 197 MG/DL (80-115)
[2017-05-27] MEDS: WARFARIN SOD 5 MG TAB PO (17:29)
[2017-05-27 20:46] LABS: BEDSIDE GLUCOSE 333 MG/DL (80-115)
[2017-05-27] MEDS: METOPROLOL SUCC *XL* 25MG TAB (TopROL *XL*) PO (21:00)
[2017-05-27] MEDS: ROSUVASTATIN 10 MG TAB (CRESTOR) PO (23:50)
[2017-05-28] MEDS: NAFCILLIN SOD IV ×4 (04:36→22:54)
[2017-05-28] MEDS: DILUENT IV ×4 (04:36→22:54)
[2017-05-28] MEDS: SODIUM CHLORIDE 0.9% INJ 10 ML SYR IV ×3 (05:16→23:31)
[2017-05-28 05:47] LABS: BASO % 0.6 % (0.0-1.0); EOS # 0.2 10^3/uL (0.0-0.50); EOS % 3.7 % (0.0-3.0); HEMOGLOBIN 9.7 g/dl (14.0-18.0); IMMATURE GRANULOCYTE # 0.1 10^3/uL (0-0); IMMATURE GRANULOCYTE % 2.7 % (0-0); LYMPH # 1.4 10^3/uL (1.5-4.5); LYMPH % 28.2 % (24.0-44.0); MEAN CORPUSCULAR HEMOGLOBIN 25.3 pg (27.0-33.0); MEAN CORPUSCULAR HGB CONC 30.3 g/dl (32.0-36.5); MEAN CORPUSCULAR VOLUME 83.6 fl (80.0-96.0); MONO # 0.4 10^3/uL (0.0-0.8); MONO % 7.8 % (0.0-5.0); NEUTROPHILS # 2.8 10^3/uL (1.8-7.7); PLATELET COUNT, AUTOMATED 361 10^3/uL (150-450); RED BLOOD COUNT 3.83 10^6/uL (4.30-6.10); RED CELL DISTRIBUTION WIDTH 17.9 % (11.5-14.5); WHITE BLOOD COUNT 4.9 10^3/uL (4.0-10.0)
[2017-05-28 05:57] LABS: PROTHROMBIN TIME 25.2 SECONDS (12.4-14.5)
[2017-05-28 06:07] LABS: ANION GAP 7 MEQ/L (8-16); BLOOD UREA NITROGEN 22 MG/DL (7-18); C REACTIVE PROTEIN QUANTITATIV 4.94 MG/DL (0.00-0.30); CALCIUM LEVEL 7.3 MG/DL (8.8-10.2); CARBON DIOXIDE LEVEL 28 MEQ/L (21-32); CHLORIDE LEVEL 108 MEQ/L (98-107); GLOMERULAR FILTRATION RATE 53.8 (>49); GLUCOSE, FASTING 295 MG/DL (80-110); MAGNESIUM LEVEL 2.3 MG/DL (1.8-2.4); SODIUM LEVEL 143 MEQ/L (136-145)
[2017-05-28] MEDS: GABAPENTIN 300 MG CAP PO ×3 (08:14→20:44)
[2017-05-28] MEDS: MULTIVITAMINS/MINERALS THERAP 1 TAB PO (08:14)
[2017-05-28] MEDS: FERROUS SULFATE 325MG TAB PO (08:14)
[2017-05-28] MEDS: ALLOPURINOL 100 MG TAB PO (08:14)
[2017-05-28] MEDS: HumaLOG INSULIN (NovoLOG) PER UNIT SC ×4 (08:14→20:45)
[2017-05-28] MEDS: FUROSEMIDE 20 MG TAB PO (08:15)
[2017-05-28] MEDS: LEVEMIR (INSULIN DETEMIR) 1 UNITS/0.01ML SC ×2 (08:16→20:47)
[2017-05-28] MEDS: SILVER SULFADIAZINE 1% CR 50 GM JAR TOP ×2 (08:17→20:50)
[2017-05-28 11:59] LABS: BEDSIDE GLUCOSE 246 MG/DL (80-115)
[2017-05-28] MEDS: WARFARIN SOD 3 MG TAB PO (17:32)
[2017-05-28] MEDS: WARFARIN SOD 2.5 MG TAB PO (17:33)
[2017-05-28 19:27] LABS: BEDSIDE GLUCOSE 221 MG/DL (80-115)
[2017-05-28 20:32] LABS: BEDSIDE GLUCOSE 264 MG/DL (80-115)
[2017-05-28] MEDS: ROSUVASTATIN 10 MG TAB (CRESTOR) PO (20:42)
[2017-05-28] MEDS: METOPROLOL SUCC *XL* 25MG TAB (TopROL *XL*) PO (20:43)
[2017-05-29] MEDS: NAFCILLIN SOD IV ×4 (05:27→23:17)
[2017-05-29] MEDS: DILUENT IV ×4 (05:27→23:17)
[2017-05-29 05:37] LABS: HEMATOCRIT 33.8 % (42.0-52.0); HEMOGLOBIN 9.9 g/dl (14.0-18.0); MEAN CORPUSCULAR HEMOGLOBIN 24.4 pg (27.0-33.0); MEAN CORPUSCULAR HGB CONC 29.3 g/dl (32.0-36.5); MEAN CORPUSCULAR VOLUME 83.3 fl (80.0-96.0); PLATELET COUNT, AUTOMATED 366 10^3/uL (150-450); RED BLOOD COUNT 4.06 10^6/uL (4.30-6.10); RED CELL DISTRIBUTION WIDTH 18.2 % (11.5-14.5)
[2017-05-29 05:39] LABS: BEDSIDE GLUCOSE 204 MG/DL (80-115)
[2017-05-29 05:47] LABS: INR 1.57; PROTHROMBIN TIME 19.2 SECONDS (12.4-14.5)
[2017-05-29 05:58] LABS: ANION GAP 5 MEQ/L (8-16); BLOOD UREA NITROGEN 21 MG/DL (7-18); C REACTIVE PROTEIN QUANTITATIV 4.21 MG/DL (0.00-0.30); CALCIUM LEVEL 7.7 MG/DL (8.8-10.2); CARBON DIOXIDE LEVEL 28 MEQ/L (21-32); CHLORIDE LEVEL 110 MEQ/L (98-107); CREATININE FOR GFR 1.23 MG/DL (0.70-1.30); GLOMERULAR FILTRATION RATE > 60.0 (>49); GLUCOSE, FASTING 185 MG/DL (80-110); MAGNESIUM LEVEL 2.4 MG/DL (1.8-2.4); SODIUM LEVEL 143 MEQ/L (136-145)
[2017-05-29] MEDS: SODIUM CHLORIDE 0.9% INJ 10 ML SYR IV ×3 (06:01→23:53)
[2017-05-29] MEDS: HumaLOG INSULIN (NovoLOG) PER UNIT SC ×4 (08:13→20:28)
[2017-05-29] MEDS: FERROUS SULFATE 325MG TAB PO (08:13)
[2017-05-29] MEDS: ALLOPURINOL 100 MG TAB PO (08:13)
[2017-05-29] MEDS: MULTIVITAMINS/MINERALS THERAP 1 TAB PO (08:13)
[2017-05-29] MEDS: GABAPENTIN 300 MG CAP PO ×3 (08:13→20:39)
[2017-05-29] MEDS: SILVER SULFADIAZINE 1% CR 50 GM JAR TOP ×2 (08:14→20:43)
[2017-05-29] MEDS: LEVEMIR (INSULIN DETEMIR) 1 UNITS/0.01ML SC ×2 (08:14→20:42)
[2017-05-29] MEDS: WARFARIN SOD 2.5 MG TAB PO ×2 (17:17)
[2017-05-29] MEDS: WARFARIN SOD 3 MG TAB PO (17:17)
[2017-05-29] MEDS: FUROSEMIDE 20 MG TAB PO (17:18)
[2017-05-29] MEDS: METOPROLOL SUCC *XL* 25MG TAB (TopROL *XL*) PO (20:39)
[2017-05-29] MEDS: ROSUVASTATIN 10 MG TAB (CRESTOR) PO (20:39)
[2017-05-30] MEDS: SODIUM CHLORIDE 0.9% INJ 10 ML SYR IV ×2 (05:10→17:46)
[2017-05-30] MEDS: NAFCILLIN SOD IV ×4 (05:10→23:44)
[2017-05-30] MEDS: DILUENT IV ×4 (05:10→23:44)
[2017-05-30 05:27] LABS: HEMATOCRIT 32.7 % (42.0-52.0); HEMOGLOBIN 9.8 g/dl (14.0-18.0); MEAN CORPUSCULAR HEMOGLOBIN 25.4 pg (27.0-33.0); MEAN CORPUSCULAR VOLUME 84.7 fl (80.0-96.0); PLATELET COUNT, AUTOMATED 352 10^3/uL (150-450); RED BLOOD COUNT 3.86 10^6/uL (4.30-6.10); RED CELL DISTRIBUTION WIDTH 18.3 % (11.5-14.5); WHITE BLOOD COUNT 4.3 10^3/uL (4.0-10.0)
[2017-05-30 05:45] LABS: INR 1.39; PROTHROMBIN TIME 17.4 SECONDS (12.4-14.5)
[2017-05-30 05:53] LABS: ANION GAP 5 MEQ/L (8-16); BLOOD UREA NITROGEN 19 MG/DL (7-18); C REACTIVE PROTEIN QUANTITATIV 3.77 MG/DL (0.00-0.30); CALCIUM LEVEL 7.7 MG/DL (8.8-10.2); CARBON DIOXIDE LEVEL 28 MEQ/L (21-32); CHLORIDE LEVEL 111 MEQ/L (98-107); CREATININE FOR GFR 1.16 MG/DL (0.70-1.30); GLOMERULAR FILTRATION RATE > 60.0 (>49); GLUCOSE, FASTING 166 MG/DL (80-110); MAGNESIUM LEVEL 2.2 MG/DL (1.8-2.4); POTASSIUM SERUM 4.2 MEQ/L (3.5-5.1); SODIUM LEVEL 144 MEQ/L (136-145)
[2017-05-30] MEDS: ALLOPURINOL 100 MG TAB PO (08:48)
[2017-05-30] MEDS: GABAPENTIN 300 MG CAP PO ×3 (08:48→20:22)
[2017-05-30] MEDS: FERROUS SULFATE 325MG TAB PO (08:48)
[2017-05-30] MEDS: MULTIVITAMINS/MINERALS THERAP 1 TAB PO (08:48)
[2017-05-30] MEDS: FUROSEMIDE 20 MG TAB PO ×2 (08:48→17:44)
[2017-05-30] MEDS: HumaLOG INSULIN (NovoLOG) PER UNIT SC ×4 (08:49→20:24)
[2017-05-30] MEDS: LEVEMIR (INSULIN DETEMIR) 1 UNITS/0.01ML SC ×2 (08:49→20:25)
[2017-05-30] MEDS: SILVER SULFADIAZINE 1% CR 50 GM JAR TOP ×2 (08:50→20:26)
[2017-05-30 12:00] LABS: BEDSIDE GLUCOSE 211 MG/DL (80-115)
[2017-05-30 12:00] LABS: BEDSIDE GLUCOSE 278 MG/DL (80-115)
[2017-05-30 12:00] LABS: BEDSIDE GLUCOSE 254 MG/DL (80-115)
[2017-05-30 12:00] LABS: BEDSIDE GLUCOSE 220 MG/DL (80-115)
[2017-05-30] MEDS: WARFARIN SOD 3 MG TAB PO (17:45)
[2017-05-30] MEDS: WARFARIN SOD 2.5 MG TAB PO ×2 (17:45)
[2017-05-30] MEDS: ROSUVASTATIN 10 MG TAB (CRESTOR) PO (20:23)
[2017-05-30] MEDS: METOPROLOL SUCC *XL* 25MG TAB (TopROL *XL*) PO (20:26)
[2017-05-31] MEDS: NAFCILLIN SOD IV ×4 (05:25→22:36)
[2017-05-31] MEDS: DILUENT IV ×4 (05:25→22:36)
[2017-05-31] MEDS: SODIUM CHLORIDE 0.9% INJ 10 ML SYR IV ×2 (05:25→17:12)
[2017-05-31 05:35] LABS: HEMATOCRIT 32.8 % (42.0-52.0); HEMOGLOBIN 9.8 g/dl (14.0-18.0); MEAN CORPUSCULAR HEMOGLOBIN 25.3 pg (27.0-33.0); MEAN CORPUSCULAR HGB CONC 29.9 g/dl (32.0-36.5); MEAN CORPUSCULAR VOLUME 84.5 fl (80.0-96.0); PLATELET COUNT, AUTOMATED 324 10^3/uL (150-450); RED BLOOD COUNT 3.88 10^6/uL (4.30-6.10); RED CELL DISTRIBUTION WIDTH 18.6 % (11.5-14.5); WHITE BLOOD COUNT 4.6 10^3/uL (4.0-10.0)
[2017-05-31 05:55] LABS: INR 1.34; PROTHROMBIN TIME 16.9 SECONDS (12.4-14.5)
[2017-05-31 06:00] LABS: ANION GAP 6 MEQ/L (8-16); BLOOD UREA NITROGEN 17 MG/DL (7-18); C REACTIVE PROTEIN QUANTITATIV 3.33 MG/DL (0.00-0.30); CARBON DIOXIDE LEVEL 27 MEQ/L (21-32); CHLORIDE LEVEL 110 MEQ/L (98-107); CREATININE FOR GFR 1.07 MG/DL (0.70-1.30); GLOMERULAR FILTRATION RATE > 60.0 (>49); GLUCOSE, FASTING 135 MG/DL (80-110); MAGNESIUM LEVEL 2.2 MG/DL (1.8-2.4); POTASSIUM SERUM 3.5 MEQ/L (3.5-5.1); SODIUM LEVEL 143 MEQ/L (136-145)
[2017-05-31] MEDS: HumaLOG INSULIN (NovoLOG) PER UNIT SC ×4 (08:47→21:00)
[2017-05-31] MEDS: FUROSEMIDE 20 MG TAB PO ×2 (08:48→17:11)
[2017-05-31] MEDS: ALLOPURINOL 100 MG TAB PO (08:48)
[2017-05-31] MEDS: GABAPENTIN 300 MG CAP PO ×3 (08:48→21:16)
[2017-05-31] MEDS: FERROUS SULFATE 325MG TAB PO (08:48)
[2017-05-31] MEDS: MULTIVITAMINS/MINERALS THERAP 1 TAB PO (08:48)
[2017-05-31] MEDS: LEVEMIR (INSULIN DETEMIR) 1 UNITS/0.01ML SC ×2 (08:49→21:17)
[2017-05-31] MEDS: SILVER SULFADIAZINE 1% CR 50 GM JAR TOP ×2 (08:50→21:18)
[2017-05-31] MEDS ORDERED: WARFARIN SOD 2.5 MG TAB PO (17:00)
[2017-05-31] MEDS: WARFARIN SOD 4 MG TAB PO (17:11)
[2017-05-31 17:23] LABS: BEDSIDE GLUCOSE 179 MG/DL (80-115)
[2017-05-31] MEDS: METOPROLOL SUCC *XL* 25MG TAB (TopROL *XL*) PO (21:00)
[2017-05-31] MEDS: ROSUVASTATIN 10 MG TAB (CRESTOR) PO (21:16)
[2017-06-01] MEDS: DILUENT IV ×4 (05:05→23:21)
[2017-06-01] MEDS: SODIUM CHLORIDE 0.9% INJ 10 ML SYR IV ×2 (05:05→16:39)
[2017-06-01] MEDS: NAFCILLIN SOD IV ×4 (05:05→23:21)
[2017-06-01 05:30] LABS: HEMATOCRIT 33.7 % (42.0-52.0); MEAN CORPUSCULAR HEMOGLOBIN 25.3 pg (27.0-33.0); MEAN CORPUSCULAR HGB CONC 29.7 g/dl (32.0-36.5); MEAN CORPUSCULAR VOLUME 85.1 fl (80.0-96.0); PLATELET COUNT, AUTOMATED 340 10^3/uL (150-450); RED BLOOD COUNT 3.96 10^6/uL (4.30-6.10); RED CELL DISTRIBUTION WIDTH 18.6 % (11.5-14.5); WHITE BLOOD COUNT 4.5 10^3/uL (4.0-10.0)
[2017-06-01 05:43] LABS: ANION GAP 6 MEQ/L (8-16); BLOOD UREA NITROGEN 14 MG/DL (7-18); C REACTIVE PROTEIN QUANTITATIV 2.95 MG/DL (0.00-0.30); CALCIUM LEVEL 8.2 MG/DL (8.8-10.2); CARBON DIOXIDE LEVEL 29 MEQ/L (21-32); CHLORIDE LEVEL 109 MEQ/L (98-107); CREATININE FOR GFR 1.11 MG/DL (0.70-1.30); GLOMERULAR FILTRATION RATE > 60.0 (>49); GLUCOSE, FASTING 142 MG/DL (80-110); MAGNESIUM LEVEL 2.4 MG/DL (1.8-2.4); POTASSIUM SERUM 3.7 MEQ/L (3.5-5.1); SODIUM LEVEL 144 MEQ/L (136-145)
[2017-06-01 05:47] LABS: INR 1.29; PROTHROMBIN TIME 16.3 SECONDS (12.4-14.5)
[2017-06-01 06:58] LABS: BEDSIDE GLUCOSE 242 MG/DL (80-115)
[2017-06-01 06:59] LABS: BEDSIDE GLUCOSE 276 MG/DL (80-115)
[2017-06-01 06:59] LABS: BEDSIDE GLUCOSE 227 MG/DL (80-115)
[2017-06-01 06:59] LABS: BEDSIDE GLUCOSE 169 MG/DL (80-115)
[2017-06-01] MEDS: HumaLOG INSULIN (NovoLOG) PER UNIT SC ×4 (08:28→20:57)
[2017-06-01] MEDS: FUROSEMIDE 20 MG TAB PO ×2 (08:29→16:37)
[2017-06-01] MEDS: MULTIVITAMINS/MINERALS THERAP 1 TAB PO (08:29)
[2017-06-01] MEDS: ALLOPURINOL 100 MG TAB PO (08:29)
[2017-06-01] MEDS: FERROUS SULFATE 325MG TAB PO (08:29)
[2017-06-01] MEDS: GABAPENTIN 300 MG CAP PO ×3 (08:29→20:58)
[2017-06-01] MEDS: SILVER SULFADIAZINE 1% CR 50 GM JAR TOP ×2 (08:31→22:09)
[2017-06-01] MEDS: LEVEMIR (INSULIN DETEMIR) 1 UNITS/0.01ML SC ×2 (08:49→20:58)
[2017-06-01] MEDS: WARFARIN SOD 5 MG TAB PO (16:37)
[2017-06-01] MEDS: WARFARIN SOD 2 MG TAB PO (16:38)
[2017-06-01] MEDS: ROSUVASTATIN 10 MG TAB (CRESTOR) PO (20:58)
[2017-06-01] MEDS: METOPROLOL SUCC *XL* 25MG TAB (TopROL *XL*) PO (20:59)
[2017-06-02] MEDS: SODIUM CHLORIDE 0.9% INJ 10 ML SYR IV ×4 (00:27→17:55)
[2017-06-02] MEDS: NAFCILLIN SOD IV ×4 (05:22→23:30)
[2017-06-02] MEDS: DILUENT IV ×4 (05:22→23:30)
[2017-06-02 05:36] LABS: HEMATOCRIT 34.4 % (42.0-52.0); HEMOGLOBIN 10.4 g/dl (14.0-18.0); MEAN CORPUSCULAR HEMOGLOBIN 25.4 pg (27.0-33.0); MEAN CORPUSCULAR HGB CONC 30.2 g/dl (32.0-36.5); MEAN CORPUSCULAR VOLUME 83.9 fl (80.0-96.0); PLATELET COUNT, AUTOMATED 322 10^3/uL (150-450); RED CELL DISTRIBUTION WIDTH 18.7 % (11.5-14.5); WHITE BLOOD COUNT 4.5 10^3/uL (4.0-10.0)
[2017-06-02 05:50] LABS: INR 1.21; PROTHROMBIN TIME 15.5 SECONDS (12.4-14.5)
[2017-06-02 06:07] LABS: ANION GAP 8 MEQ/L (8-16); BLOOD UREA NITROGEN 16 MG/DL (7-18); C REACTIVE PROTEIN QUANTITATIV 2.53 MG/DL (0.00-0.30); CALCIUM LEVEL 8.1 MG/DL (8.8-10.2); CARBON DIOXIDE LEVEL 27 MEQ/L (21-32); CHLORIDE LEVEL 108 MEQ/L (98-107); CREATININE FOR GFR 1.01 MG/DL (0.70-1.30); GLOMERULAR FILTRATION RATE > 60.0 (>49); GLUCOSE, FASTING 153 MG/DL (80-110); MAGNESIUM LEVEL 2.4 MG/DL (1.8-2.4); POTASSIUM SERUM 3.7 MEQ/L (3.5-5.1); SODIUM LEVEL 143 MEQ/L (136-145)
[2017-06-02] MEDS: ALLOPURINOL 100 MG TAB PO (08:26)
[2017-06-02] MEDS: FUROSEMIDE 20 MG TAB PO ×2 (08:26→17:21)
[2017-06-02] MEDS: MULTIVITAMINS/MINERALS THERAP 1 TAB PO (08:26)
[2017-06-02] MEDS: GABAPENTIN 300 MG CAP PO ×3 (08:26→21:18)
[2017-06-02] MEDS: FERROUS SULFATE 325MG TAB PO (08:26)
[2017-06-02] MEDS: HumaLOG INSULIN (NovoLOG) PER UNIT SC ×4 (08:27→21:00)
[2017-06-02] MEDS: LEVEMIR (INSULIN DETEMIR) 1 UNITS/0.01ML SC ×2 (08:29→21:17)
[2017-06-02] MEDS: SILVER SULFADIAZINE 1% CR 50 GM JAR TOP ×2 (08:29→21:19)
[2017-06-02] MEDS: ENOXAPARIN 150 MG/ML SYR (J1650) SC ×2 (09:54→21:19)
[2017-06-02] MEDS: WARFARIN SOD 5 MG TAB PO (17:20)
[2017-06-02] MEDS: WARFARIN SOD 4 MG TAB PO (17:20)
[2017-06-02 20:54] LABS: BEDSIDE GLUCOSE 186 MG/DL (80-115)
[2017-06-02 20:54] LABS: BEDSIDE GLUCOSE 258 MG/DL (80-115)
[2017-06-02 20:54] LABS: BEDSIDE GLUCOSE 234 MG/DL (80-115)
[2017-06-02 20:54] LABS: BEDSIDE GLUCOSE 240 MG/DL (80-115)
[2017-06-02 20:54] LABS: BEDSIDE GLUCOSE 152 MG/DL (80-115)
[2017-06-02] MEDS: METOPROLOL SUCC *XL* 25MG TAB (TopROL *XL*) PO (21:00)
[2017-06-02] MEDS: ROSUVASTATIN 10 MG TAB (CRESTOR) PO (21:18)
[2017-06-03] MEDS: SODIUM CHLORIDE 0.9% INJ 10 ML SYR IV ×3 (00:14→16:44)
[2017-06-03] MEDS: DILUENT IV ×4 (05:46→23:30)
[2017-06-03] MEDS: NAFCILLIN SOD IV ×4 (05:46→23:30)
[2017-06-03 05:57] LABS: HEMATOCRIT 34.6 % (42.0-52.0); HEMOGLOBIN 10.4 g/dl (14.0-18.0); MEAN CORPUSCULAR HEMOGLOBIN 25.3 pg (27.0-33.0); MEAN CORPUSCULAR HGB CONC 30.1 g/dl (32.0-36.5); MEAN CORPUSCULAR VOLUME 84.2 fl (80.0-96.0); PLATELET COUNT, AUTOMATED 309 10^3/uL (150-450); RED BLOOD COUNT 4.11 10^6/uL (4.30-6.10); RED CELL DISTRIBUTION WIDTH 19.2 % (11.5-14.5); WHITE BLOOD COUNT 4.5 10^3/uL (4.0-10.0)
[2017-06-03 06:13] LABS: INR 1.41; PROTHROMBIN TIME 17.6 SECONDS (12.4-14.5)
[2017-06-03 06:24] LABS: ANION GAP 8 MEQ/L (8-16); BLOOD UREA NITROGEN 16 MG/DL (7-18); C REACTIVE PROTEIN QUANTITATIV 1.88 MG/DL (0.00-0.30); CARBON DIOXIDE LEVEL 28 MEQ/L (21-32); CHLORIDE LEVEL 108 MEQ/L (98-107); CREATININE FOR GFR 1.06 MG/DL (0.70-1.30); GLOMERULAR FILTRATION RATE > 60.0 (>49); GLUCOSE, FASTING 170 MG/DL (80-110); MAGNESIUM LEVEL 2.3 MG/DL (1.8-2.4); POTASSIUM SERUM 3.9 MEQ/L (3.5-5.1); SODIUM LEVEL 144 MEQ/L (136-145)
[2017-06-03] MEDS: GABAPENTIN 300 MG CAP PO ×3 (09:25→20:31)
[2017-06-03] MEDS: FUROSEMIDE 20 MG TAB PO ×2 (09:27→16:42)
[2017-06-03] MEDS: ALLOPURINOL 100 MG TAB PO (09:28)
[2017-06-03] MEDS: MULTIVITAMINS/MINERALS THERAP 1 TAB PO (09:28)
[2017-06-03] MEDS: FERROUS SULFATE 325MG TAB PO (09:28)
[2017-06-03] MEDS: HumaLOG INSULIN (NovoLOG) PER UNIT SC ×4 (09:29→20:32)
[2017-06-03] MEDS: ENOXAPARIN 150 MG/ML SYR (J1650) SC ×2 (09:29→20:33)
[2017-06-03] MEDS: LEVEMIR (INSULIN DETEMIR) 1 UNITS/0.01ML SC ×2 (09:29→20:33)
[2017-06-03] MEDS: SILVER SULFADIAZINE 1% CR 50 GM JAR TOP ×2 (11:47→20:34)
[2017-06-03 12:14] LABS: BEDSIDE GLUCOSE 215 MG/DL (80-115)
[2017-06-03] MEDS: WARFARIN SOD 4 MG TAB PO (16:43)
[2017-06-03] MEDS: WARFARIN SOD 5 MG TAB PO (16:43)
[2017-06-03] MEDS: ROSUVASTATIN 10 MG TAB (CRESTOR) PO (20:31)
[2017-06-03] MEDS: METOPROLOL SUCC *XL* 25MG TAB (TopROL *XL*) PO (20:31)
[2017-06-04] MEDS: SODIUM CHLORIDE 0.9% INJ 10 ML SYR IV ×4 (00:09→23:43)
[2017-06-04] MEDS: DILUENT IV ×4 (05:22→23:07)
[2017-06-04] MEDS: NAFCILLIN SOD IV ×4 (05:22→23:07)
[2017-06-04 05:41] LABS: INR 1.33; PROTHROMBIN TIME 16.8 SECONDS (12.4-14.5)
[2017-06-04 05:53] LABS: HEMATOCRIT 34.4 % (42.0-52.0); HEMOGLOBIN 10.4 g/dl (14.0-18.0); MEAN CORPUSCULAR HEMOGLOBIN 25.6 pg (27.0-33.0); MEAN CORPUSCULAR HGB CONC 30.2 g/dl (32.0-36.5); MEAN CORPUSCULAR VOLUME 84.7 fl (80.0-96.0); PLATELET COUNT, AUTOMATED 311 10^3/uL (150-450); RED BLOOD COUNT 4.06 10^6/uL (4.30-6.10); RED CELL DISTRIBUTION WIDTH 19.4 % (11.5-14.5); WHITE BLOOD COUNT 4.3 10^3/uL (4.0-10.0)
[2017-06-04 06:10] LABS: ANION GAP 6 MEQ/L (8-16); BLOOD UREA NITROGEN 18 MG/DL (7-18); CALCIUM LEVEL 8.2 MG/DL (8.8-10.2); CARBON DIOXIDE LEVEL 27 MEQ/L (21-32); CHLORIDE LEVEL 110 MEQ/L (98-107); CREATININE FOR GFR 1.15 MG/DL (0.70-1.30); GLOMERULAR FILTRATION RATE > 60.0 (>49); GLUCOSE, FASTING 148 MG/DL (80-110); MAGNESIUM LEVEL 2.2 MG/DL (1.8-2.4); POTASSIUM SERUM 3.8 MEQ/L (3.5-5.1); SODIUM LEVEL 143 MEQ/L (136-145)
[2017-06-04] MEDS: MULTIVITAMINS/MINERALS THERAP 1 TAB PO (09:33)
[2017-06-04] MEDS: GABAPENTIN 300 MG CAP PO ×3 (09:33→20:46)
[2017-06-04] MEDS: ALLOPURINOL 100 MG TAB PO (09:33)
[2017-06-04] MEDS: FERROUS SULFATE 325MG TAB PO (09:33)
[2017-06-04] MEDS: FUROSEMIDE 20 MG TAB PO ×2 (09:34→16:34)
[2017-06-04] MEDS: LEVEMIR (INSULIN DETEMIR) 1 UNITS/0.01ML SC ×2 (09:35→20:49)
[2017-06-04] MEDS: HumaLOG INSULIN (NovoLOG) PER UNIT SC ×4 (09:35→20:47)
[2017-06-04] MEDS: ENOXAPARIN 150 MG/ML SYR (J1650) SC ×2 (09:35→20:48)
[2017-06-04] MEDS: SILVER SULFADIAZINE 1% CR 50 GM JAR TOP ×2 (09:38→20:49)
[2017-06-04] MEDS: WARFARIN SOD 4 MG TAB PO (16:34)
[2017-06-04] MEDS: METOPROLOL SUCC *XL* 25MG TAB (TopROL *XL*) PO (20:46)
[2017-06-04] MEDS: ROSUVASTATIN 10 MG TAB (CRESTOR) PO (20:46)
[2017-06-05 00:27] LABS: BEDSIDE GLUCOSE 179 MG/DL (80-115)
[2017-06-05 00:27] LABS: BEDSIDE GLUCOSE 237 MG/DL (80-115)
[2017-06-05 00:27] LABS: BEDSIDE GLUCOSE 155 MG/DL (80-115)
[2017-06-05 00:27] LABS: BEDSIDE GLUCOSE 242 MG/DL (80-115)
[2017-06-05 00:27] LABS: BEDSIDE GLUCOSE 262 MG/DL (80-115)
[2017-06-05] MEDS: SODIUM CHLORIDE 0.9% INJ 10 ML SYR IV ×2 (05:15→17:36)
[2017-06-05] MEDS: NAFCILLIN SOD IV ×2 (05:15→10:59)
[2017-06-05] MEDS: DILUENT IV ×2 (05:15→10:59)
[2017-06-05 05:27] LABS: HEMATOCRIT 34.5 % (42.0-52.0); HEMOGLOBIN 10.4 g/dl (14.0-18.0); MEAN CORPUSCULAR HEMOGLOBIN 25.7 pg (27.0-33.0); MEAN CORPUSCULAR HGB CONC 30.1 g/dl (32.0-36.5); MEAN CORPUSCULAR VOLUME 85.4 fl (80.0-96.0); PLATELET COUNT, AUTOMATED 275 10^3/uL (150-450); RED BLOOD COUNT 4.04 10^6/uL (4.30-6.10); RED CELL DISTRIBUTION WIDTH 19.7 % (11.5-14.5); WHITE BLOOD COUNT 3.7 10^3/uL (4.0-10.0)
[2017-06-05 05:44] LABS: INR 1.55
[2017-06-05 06:02] LABS: ANION GAP 8 MEQ/L (8-16); BLOOD UREA NITROGEN 16 MG/DL (7-18); CALCIUM LEVEL 7.7 MG/DL (8.8-10.2); CARBON DIOXIDE LEVEL 27 MEQ/L (21-32); CHLORIDE LEVEL 109 MEQ/L (98-107); CREATININE FOR GFR 1.03 MG/DL (0.70-1.30); GLOMERULAR FILTRATION RATE > 60.0 (>49); GLUCOSE, FASTING 154 MG/DL (80-110); MAGNESIUM LEVEL 2.3 MG/DL (1.8-2.4); POTASSIUM SERUM 3.7 MEQ/L (3.5-5.1); SODIUM LEVEL 144 MEQ/L (136-145)
[2017-06-05] MEDS: ALLOPURINOL 100 MG TAB PO (08:47)
[2017-06-05] MEDS: GABAPENTIN 300 MG CAP PO ×3 (08:47→21:01)
[2017-06-05] MEDS: FERROUS SULFATE 325MG TAB PO (08:47)
[2017-06-05] MEDS: MULTIVITAMINS/MINERALS THERAP 1 TAB PO (08:47)
[2017-06-05] MEDS: LEVEMIR (INSULIN DETEMIR) 1 UNITS/0.01ML SC ×2 (08:48→21:00)
[2017-06-05] MEDS: HumaLOG INSULIN (NovoLOG) PER UNIT SC ×4 (08:48→20:19)
[2017-06-05] MEDS: ENOXAPARIN 150 MG/ML SYR (J1650) SC ×2 (08:49→21:01)
[2017-06-05] MEDS: FUROSEMIDE 20 MG TAB PO ×2 (08:51→17:33)
[2017-06-05] MEDS: SILVER SULFADIAZINE 1% CR 50 GM JAR TOP ×2 (08:51→21:00)
[2017-06-05 11:48] LABS: BEDSIDE GLUCOSE 250 MG/DL (80-115)
[2017-06-05 15:41] LABS: C REACTIVE PROTEIN QUANTITATIV 1.38 MG/DL (0.00-0.30)
[2017-06-05 16:19] LABS: BEDSIDE GLUCOSE 164 MG/DL (80-115)
[2017-06-05 16:39] LABS: BEDSIDE GLUCOSE 174 MG/DL (80-115)
[2017-06-05] MEDS: WARFARIN SOD 5 MG TAB PO (17:35)
[2017-06-05] MEDS: AUGMENTIN 875 MG TAB PO (21:01)
[2017-06-05] MEDS: METOPROLOL SUCC *XL* 25MG TAB (TopROL *XL*) PO (21:06)
[2017-06-05] MEDS: ROSUVASTATIN 10 MG TAB (CRESTOR) PO (21:08)
[2017-06-06] MEDS: SODIUM CHLORIDE 0.9% INJ 10 ML SYR IV (05:34)
[2017-06-06 05:49] LABS: HEMATOCRIT 35.3 % (42.0-52.0); HEMOGLOBIN 10.5 g/dl (14.0-18.0); MEAN CORPUSCULAR HEMOGLOBIN 25.4 pg (27.0-33.0); MEAN CORPUSCULAR HGB CONC 29.7 g/dl (32.0-36.5); MEAN CORPUSCULAR VOLUME 85.5 fl (80.0-96.0); PLATELET COUNT, AUTOMATED 254 10^3/uL (150-450); RED BLOOD COUNT 4.13 10^6/uL (4.30-6.10); WHITE BLOOD COUNT 3.8 10^3/uL (4.0-10.0)
[2017-06-06 06:00] LABS: INR 1.41; PROTHROMBIN TIME 17.6 SECONDS (12.4-14.5)
[2017-06-06 06:49] LABS: ANION GAP 8 MEQ/L (8-16); BLOOD UREA NITROGEN 18 MG/DL (7-18); CARBON DIOXIDE LEVEL 26 MEQ/L (21-32); CHLORIDE LEVEL 109 MEQ/L (98-107); CREATININE FOR GFR 1.09 MG/DL (0.70-1.30); GLOMERULAR FILTRATION RATE > 60.0 (>49); GLUCOSE, FASTING 205 MG/DL (80-110); MAGNESIUM LEVEL 2.3 MG/DL (1.8-2.4); POTASSIUM SERUM 3.8 MEQ/L (3.5-5.1); SODIUM LEVEL 143 MEQ/L (136-145)
[2017-06-06] MEDS: HumaLOG INSULIN (NovoLOG) PER UNIT SC (07:30)
[2017-06-06] MEDS: MULTIVITAMINS/MINERALS THERAP 1 TAB PO (08:39)
[2017-06-06] MEDS: AUGMENTIN 875 MG TAB PO (08:39)
[2017-06-06] MEDS: GABAPENTIN 300 MG CAP PO (08:39)
[2017-06-06] MEDS: ALLOPURINOL 100 MG TAB PO (08:40)
[2017-06-06] MEDS: FERROUS SULFATE 325MG TAB PO (08:40)
[2017-06-06] MEDS: FUROSEMIDE 20 MG TAB PO (08:40)
[2017-06-06] MEDS: LEVEMIR (INSULIN DETEMIR) 1 UNITS/0.01ML SC (08:41)
[2017-06-06] MEDS: ENOXAPARIN 150 MG/ML SYR (J1650) SC (08:42)
[2017-06-06] MEDS: SILVER SULFADIAZINE 1% CR 50 GM JAR TOP (08:42)
[2017-06-06 12:18] LABS: BEDSIDE GLUCOSE 233 MG/DL (80-115)
== END 2017-06-06 11:44 | disposition home health service (06) | DRG 41 ==
LOC: M MSPAV 05-23 14:33 → M ED 12:45 → M ED INP 21:17 → M MS4PR 22:46
PROC: 0KBW0ZZ Excision of Left Foot Muscle, Open Approach (ICD-10-PCS; principal; 2017-05-22 07:40)
PROC: 0KBW0ZZ Excision of Left Foot Muscle, Open Approach (ICD-10-PCS; 2017-05-22 17:49)
DX: E11.40 Type 2 diabetes mellitus with diabetic neuropathy, unspecified (principal); Z68.41 Body mass index [BMI] 40.0-44.9, adult; R78.81 Bacteremia; L03.116 Cellulitis of left lower limb; I13.0 Hypertensive heart and chronic kidney disease with heart failure and stage 1 through stage 4 chronic kidney disease, or unspecified chronic kidney disease; L97.525 Non-pressure chronic ulcer of other part of left foot with muscle involvement without evidence of necrosis; E11.621 Type 2 diabetes mellitus with foot ulcer; I48.91 Unspecified atrial fibrillation; I50.9 Heart failure, unspecified; D50.9 Iron deficiency anemia, unspecified; E66.01 Morbid (severe) obesity due to excess calories; N18.9 Chronic kidney disease, unspecified; I25.10 Atherosclerotic heart disease of native coronary artery without angina pectoris; M10.9 Gout, unspecified; G47.33 Obstructive sleep apnea (adult) (pediatric); Z79.899 Other long term (current) drug therapy; K21.9 Gastro-esophageal reflux disease without esophagitis; Z95.2 Presence of prosthetic heart valve; Z79.4 Long term (current) use of insulin; Z79.01 Long term (current) use of anticoagulants; B95.61 Methicillin susceptible Staphylococcus aureus infection as the cause of diseases classified elsewhere

== ENCOUNTER 2017-07-27 12:32 | Emergency (ER) | payer OTHER | END 2017-07-27 16:17 | disposition home or self-care (01) | LOC: M ED 12:32 | DX: M79.662 Pain in left lower leg (principal); I73.9 Peripheral vascular disease, unspecified; Z95.2 Presence of prosthetic heart valve; E11.40 Type 2 diabetes mellitus with diabetic neuropathy, unspecified; E78.00 Pure hypercholesterolemia, unspecified; I10 Essential (primary) hypertension; Z87.891 Personal history of nicotine dependence; E66.01 Morbid (severe) obesity due to excess calories; Z79.4 Long term (current) use of insulin; Z79.899 Other long term (current) drug therapy; Z79.01 Long term (current) use of anticoagulants; Z88.8 Allergy status to other drugs, medicaments and biological substances ==